=== PATIENT | male | born 1965 ===

== ENCOUNTER 2017-10-20 16:50 | Inpatient (IN) | payer MEDICARE ==
[2017-10-20 18:43] LABS: Add Diff/Slide Review? Slide Review Added; Comments Flag Yes; Hematocrit 49 % (42-52); Mean Corpuscular HGB Conc 35 g/dl (31-36); Mean Corpuscular Hemoglobin 32 pg (27-31); Mean Corpuscular Volume 92 fL (80-94); Mean Platelet Volume 8 um3 (7.4-10.4); Red Blood Count 5.34 10^6/ul (4.0-5.4); Red Cell Distribution Width 15 % (10.5-15); White Blood Count 4.5 10^3/ul (3.5-10.8)
[2017-10-20 18:58] LABS: Albumin 4.7 g/dL (3.2-5.2); BUN/Creatinine Ratio 6.2 (8-20); Calcium 9.9 mg/dL (8.6-10.3); EGFR African American 87.3 (>60); EGFR Non-African American 67.9 (>60); Globulin 3.7 g/dL (2-4); Potassium 4.5 mmol/L (3.5-5.0); Total Bilirubin 0.6 mg/dL (0.2-1.0); Total Protein 8.4 g/dL (6.4-8.9)
[2017-10-20] MEDS ORDERED: Lidocaine 2% VISCOUS* 15 ML UDC PO ONE (21:28)
[2017-10-20] MEDS ORDERED: Al Hydrox/Mg Hydrox/Simet LIQ* 30 ML UDC PO ONE (21:29)
[2017-10-20] MEDS ORDERED: NS 0.9% 1000 ML* 1,000 ML IV ONE (21:30)
[2017-10-20 21:45] LABS: Urine Bacteria Absent (Absent); Urine Bilirubin Negative (Negative); Urine Glucose Negative (Negative); Urine Nitrite Negative (Negative)
[2017-10-20] MEDS ORDERED: LORazepam TAB(*) 0.5 MG PO PRN (22:45)
[2017-10-20] MEDS ORDERED: Thiamine IV 100 MG, Folic Acid IV* 1 MG, Multiple Vitamin IV ADULT* 10 ML in D5NS 0.9% ... IV ONE (22:45)
[2017-10-20] MEDS ORDERED: Loperamide CAP* 2 MG PO PRN (22:45)
[2017-10-20] MEDS ORDERED: Mouth Piece, Nicotine* 1 EACH CARTRIDGE INH PRN (23:09)
[2017-10-20] MEDS ORDERED: Artificial Tears* 15 ML BTL BOTH EYES PRN (23:11)
[2017-10-21] MEDS: NS 0.9% 1000 ML* 1,000 ML IV SCH ×3 (00:14→22:52)
[2017-10-21] MEDS: Nicotine Inhaler* 10 MG AMP INH PRN (00:32)
[2017-10-21] MEDS: Ondansetron INJ* 2 MG/ML VIAL IV PRN ×3 (00:33→21:03)
--- NOTE | 2017-10-21 01:49 | HP ---
HISTORY AND PHYSICAL: DATE OF ADMISSION: 10/20/17 PRIMARY CARE PROVIDER: None since Dr. Mack Stevens retired last year. CHIEF COMPLAINT: Abdominal pain, diarrhea. HISTORY OF PRESENT ILLNESS: Mr. Molnia is a 52-year-old male with a longstanding history of alcoholism, who states that he has been drinking approximately 12 pack of beer per day for quite sometime. He states that he has had abdominal pain for quite a while. He is unable to tell me how long he has had the abdominal pain. He also complains of having diarrhea after every time he tries to take any fluid or liquid in. He tells me this has been going on for a month, but he cannot be any more specific than that. The patient states that he feels as if he is in a fog and his memory is poor. The patient also complains that his eyes burn. He also states that he feels dehydrated. The patient in general is a poor historian and is unable to give any specific details. Overall, he just states that he feels incredibly poor. PAST MEDICAL HISTORY: 1. Alcoholism. 2. History of alcoholic hepatitis. 3. 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 4. Vitamin D deficiency. 5. Tourette's. 6. OCD. 7. Tobacco abuse. 8. Color blindness. PAST SURGICAL HISTORY: Cholecystectomy. ALLERGIES: IBUPROFEN and PYRIDOXINE. MEDICATIONS: None. FAMILY HISTORY: Mom of a brain aneurysm in her 60's, dad's health is unknown. SOCIAL HISTORY: The patient states that he is trying to quit smoking. He has been smoking less than 1 pack per day. He has probably smoked for 20 years. He drinks approximately 12 pack of beer per day. He admits to using cocaine intermittently. He states he last used cocaine a few weeks ago. He smokes it and he injects it. 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 He is . He has 2 children. He is unable to choose a healthcare proxy stating that he has nobody close to him that he would have make those decisions. He is not in contact with his children. REVIEW OF SYSTEMS: The patient denies any fevers or chills. He denies anorexia , but states that he is afraid to eat due to the diarrhea that always ensues. He admits to chest pain. He states that lately he has been getting chest pain with exertion. He states that it goes away with rest. Additionally, he complains of left arm discomfort with walking. He has chronic lower extremity edema. He admits to chronic cough and shortness of breath that he thinks is related to his smoking. He admits to nausea, diarrhea, and abdominal pain as above. He thinks that he may have had blood in his stool but with his color blindness he is not sure, he just notes that his stool is very dark. He denies any dysuria. He denies any focal weakness or sensory loss. He admits to the lower extremity neuropathy. He states that his vision is not very good. He describes a film over everything. He admits to dysphagia. He denies any joint pains or muscle pains out of ordinary. No rashes. He admits to depression. PHYSICAL EXAMINATION GENERAL: The patient is a well-developed, middle-aged male, sitting in stretcher, at times tearful during my exam, but in no acute distress. VITAL SIGNS: Blood pressure 141/85, pulse 90, respirations 18, temp 98.4, O2 sat 97% on room air. HEENT: Pupils are equal, they are round. Extraocular muscles are intact. The patient's sclerae are injected. His oral mucosa is dry. There is no submandibular, cervical, or supraclavicular adenopathy. Thyroid is not enlarged. No thyroid nodules noted. PULMONARY: Lungs are clear to auscultation bilaterally. CARDIAC: Normal S1, S2. Regular rate and rhythm. I do not appreciate any murmurs. There is no lower extremity edema. Pulses at the dorsalis pedis are 2 +. ABDOMEN: Bowel sounds present. Abdomen is soft, nontender, nondistended. MUSCULOSKELETAL: There is no cyanosis or clubbing of the digits. There is full active range of motion of all 4 extremities. NEURO: Cranial nerves II through XII are grossly intact. Sensation is intact to light touch throughout. Strength is 5/5 and symmetric in both upper and lower extremities bilaterally. SKIN: Warm and dry. There are no rashes. The patient has track lizarraga noted on his bilateral lower extremities. There is no evidence of phlebitis. PSYCH: The patient is tearful. He cries when speaking about his children and lack of relationship with them. DIAGNOSTIC STUDIES/LAB DATA: WBC 4.5, hemoglobin 17.0, hematocrit 49, platelets 96. Sodium 141, potassium 4.5, chloride 99, CO2 27, BUN 7, creatinine 1.13, glucose 92, calcium 9.9, bilirubin 0.6, AST 69, ALT 53, alk phos 89, albumin 4.7, lipase 121. Alcohol 276. Urinalysis reveals specific gravity of 1.009, trace wbc, absent bacteria, negative ketones. ASSESSMENT AND PLAN: Mr. Molina is a 52-year-old male with a longstanding history of alcoholism and related complications, Tourette's, obsessive- compulsive disorder, and tobacco abuse as well as cocaine abuse who presents to the emergency room with complaints of abdominal pain and in general feeling poorly. 1. Abdominal pain: While the patient's lipase is mildly elevated at 121, I suspect his abdominal pain is likely related to alcoholic gastritis. The patient may have a slight alcoholic hepatitis; however, this seems to be unlikely the cause of his abdominal pain at this point. The patient will be started on omeprazole 20 mg p.o. daily. He is going to be abstaining from alcohol while hospitalized and this hopefully will help. The patient states that he thought that his stool was very dark recently. I will order a stool occult blood; however, his hemoglobin is within normal range. It seems unlikely that he is having at least a significant GI bleed, but he could perhaps be having oozing turning his stool dark. The patient was given a GI cocktail in the emergency room. 2. Diarrhea: The patient claims that after every time he eats or drinks, he has significant diarrhea. I have ordered Imodium to be given after each loose stool. I suspect the diarrhea is related to his alcohol intake. 3. General malaise: The patient in general feels very poorly. The differential on this is extensive. Symptoms could be secondary to ongoing alcohol abuse versus potential infection secondary to injecting cocaine a few weeks ago versus vitamin deficiency. The patient is already known to be vitamin D deficient. I question if he may have vitamin B12 deficiency. We will check a vitamin B12 level. The patient will receive a banana bag. 4. Alcohol abuse. The patient will be started on the WAM protocol q. 4 hours. 5. Depression: The patient is clearly depressed. At this point, he states that he does not want to speak to a psychiatrist because he does not want to go back on medications. He may, however, very well need to speak to a psychiatrist depending on how his hospitalization goes. 6. DVT prophylaxis: According to the Adult Thrombosis Prophylaxis Risk Factor Assessment Guide, the patient has a total risk factor score of 2 making him moderate risk. He will be placed on heparin 5000 units subcutaneous q. 12 hours. 7. Code status is full. TIME SPENT: Sixty five minutes was spent admitting this patient. [id number]/[facility] #: [id number] GABI
[2017-10-21] MEDS: LORazepam TAB(*) 0.5 MG PO PRN ×3 (02:40→09:05)
[2017-10-21] MEDS: Omeprazole CAP* 20 MG PO SCH (05:23)
[2017-10-21 05:53] LABS: Hematocrit 40 % (42-52); Hemoglobin 13.7 g/dl (14.0-18.0); Mean Corpuscular HGB Conc 34 g/dl (31-36); Mean Corpuscular Hemoglobin 31 pg (27-31); Mean Corpuscular Volume 91 fL (80-94); Mean Platelet Volume 8 um3 (7.4-10.4); Red Cell Distribution Width 15 % (10.5-15); White Blood Count 2.9 10^3/ul (3.5-10.8)
[2017-10-21 06:14] LABS: BUN/Creatinine Ratio 7.6 (8-20); Calcium 8.3 mg/dL (8.6-10.3); EGFR African American 110.7 (>60); EGFR Non-African American 86.1 (>60)
[2017-10-21 07:09] LABS: Comments Flag Yes
[2017-10-21] MEDS: Nicotine PATCH 21 MG/24 HR* PATCH TRANSDERM SCH (09:05)
[2017-10-21] MEDS ORDERED: chlordiazePOXIDE CAP* 25 MG PO PRN (12:29)
[2017-10-21] MEDS: chlordiazePOXIDE CAP* 25 MG PO SCH ×2 (14:22→21:02)
[2017-10-21] MEDS ORDERED: Nicotine Patch Removal NOTE FOLLOW UP SCH (21:00)
[2017-10-22] MEDS: Ondansetron INJ* 2 MG/ML VIAL IV PRN ×2 (03:21→09:21)
[2017-10-22] MEDS: Omeprazole CAP* 20 MG PO SCH (05:26)
[2017-10-22 06:58] LABS: Hematocrit 42 % (42-52); Hemoglobin 13.9 g/dl (14.0-18.0); Mean Corpuscular HGB Conc 34 g/dl (31-36); Mean Corpuscular Hemoglobin 31 pg (27-31); Mean Corpuscular Volume 92 fL (80-94); Mean Platelet Volume 9 um3 (7.4-10.4); Red Cell Distribution Width 15 % (10.5-15); White Blood Count 2.7 10^3/ul (3.5-10.8)
[2017-10-22 07:08] LABS: Comments Flag Yes
[2017-10-22 07:09] LABS: Add Diff/Slide Review? Slide Review Added
[2017-10-22 07:14] LABS: Albumin 3.5 g/dL (3.2-5.2); BUN/Creatinine Ratio 7.3 (8-20); Calcium 8.8 mg/dL (8.6-10.3); EGFR African American 90.1 (>60); Globulin 2.9 g/dL (2-4); Potassium 4.1 mmol/L (3.5-5.0); Total Bilirubin 0.6 mg/dL (0.2-1.0); Total Protein 6.4 g/dL (6.4-8.9)
[2017-10-22] MEDS: NS 0.9% 1000 ML* 1,000 ML IV SCH (07:16)
[2017-10-22] MEDS: Nicotine PATCH 21 MG/24 HR* PATCH TRANSDERM SCH (07:20)
[2017-10-22] MEDS: Nicotine Inhaler* 10 MG AMP INH PRN (07:20)
[2017-10-22] MEDS: chlordiazePOXIDE CAP* 25 MG PO SCH ×2 (07:21→13:16)
[2017-10-22 11:34] VITALS: BP 132/76
[2017-10-22] MEDS ORDERED: Ondansetron ODT TAB* 4 MG PO PRN (12:53)
--- NOTE | 2017-10-22 13:08 | PN ---
Subjective Date of Service: 10/21/17 Interval History: Patient no longer having diarrhea or abdominal pain. Appetite fair. No new c/ o. Objective Active Medications: Chlordiazepoxide (Librium Cap*) 25 mg PO TID [facility] Last Admin: 10/22/17 07:21 Dose: 25 mg Chlordiazepoxide (Librium Cap*) 25 mg PO Q3H PRN PRN Reason: ANXIETY Last Admin: 10/22/17 00:16 Dose: 25 mg Device (Nicotine Mouth Piece*) 1 each INH .USE WITH NICOTROL PRN PRN Reason: CRAVING Last Admin: 10/21/17 00:32 Dose: 1 each Loperamide HCl (Imodium Cap*) 2 mg PO .SEE DIRECTIONS PRN PRN Reason: DIARRHEA Nicotine (Nicotine Inhaler*) 10 mg INH Q2H PRN PRN Reason: CRAVING Last Admin: 10/22/17 07:20 Dose: 10 mg Nicotine (Nicotine Patch 21 Mg/24 Hr*) 1 patch TRANSDERM DAILY@0900 [facility] Last Admin: 10/22/17 07:20 Dose: 1 patch Ondansetron HCl (Zofran Odt Tab*) 4 mg PO Q6H PRN PRN Reason: NAUSEA Pharmacy Profile Note (Nicotine Patch Removal Note*) 1 note FOLLOW UP 2100 [facility] Last Admin: 10/21/17 21:06 Dose: 1 note Polyvinyl Alcohol (Polyvinyl Alcohol 1.4% Opth*) 2 drop BOTH EYES Q2H PRN PRN Reason: DRY EYE Vital Signs - 8 hr 10/22/17 10/22/17 10/22/17 07:05 07:21 07:38 Temperature 99.4 F Pulse Rate 81 Respiratory 18 15 20 Rate Blood Pressure 144/78 (mmHg) O2 Sat by Pulse 97 Oximetry 10/22/17 10/22/17 10:00 11:23 Temperature 97.9 F Pulse Rate 80 Respiratory 18 16 Rate Blood Pressure 132/76 (mmHg) O2 Sat by Pulse 100 Oximetry Oxygen Devices in Use Now: None Appearance: Alert, partly up in bed. In good spirits. Looks comfortable. Eyes: No Scleral Icterus Neck: NL Appearance and Movements; NL JVP, No Thyroid Enlargement, Masses Respiratory: Symmetrical Chest Expansion and Respiratory Effort, Clear to Auscultation, Clear to Percussion Cardiovascular: NL Sounds; No Murmurs; No JVD, RRR, No Edema, - Extremities: No Edema, No Clubbing, Cyanosis, - Skin: No Rash or Ulcers, No Nodules or Sclerosis Neurological: Alert and Oriented x 3, NL Sensation, - - minimal sustention tremor. Result Diagrams: 10/22/17 06:46 10/22/17 06:45 Microbiology and Other Data: Microbiology 10/20/17 23:22 Aerobic Blood Culture - Preliminary Blood Venous No Growth Day 1 Anaerobic Blood Culture - Preliminary No Growth Day 1 10/20/17 23:22 Aerobic Blood Culture - Preliminary Blood Venous No Growth Day 1 Anaerobic Blood Culture - Preliminary No Growth Day 1 Assess/Plan/Problems-Billing Assessment: - Patient Problems (1) Alcohol abuse Current Visit: Yes Status: Acute Code(s): F10.10 - ALCOHOL ABUSE, UNCOMPLICATED SNOMED Code(s): 68427134 Comment: Acute and chronic alcoholism with alcoholic hepatitis and pancreatitis. Start chlordiazepoxide scheduled and PRN. SW consult. (2) Tobacco abuse Current Visit: Yes Status: Acute Code(s): Z72.0 - TOBACCO USE SNOMED Code( s): 765396643 Comment: Pt advised to quit smoking and avoid second hand smoke.
--- NOTE | 2017-10-22 13:12 | PN ---
"Progress Note - Progress Note Date of Service: 10/22/17 Note: Search Terms: vini bernstein, 1965 Search Date: 10/22/2017 01:09:49 PM The Drug Utilization Report below displays all of the controlled substance prescriptions, if any, that your patient has filled in the last twelve months. The information displayed on this report is compiled from pharmacy submissions to the Department, and accurately reflects the information as submitted by the pharmacies. This report was requested by: Jason Baez | Reference #: [id number] There are no results for the search terms that you entered."
--- NOTE | 2017-10-22 13:15 | PN ---
Progress Note - Progress Note Date of Service: 10/22/17 Note: Time spent on discharge 55 minutes.
--- NOTE | 2017-10-22 22:48 | ED ---
Ammy Infante Alfonso, scribed for Princess Bellamy MD on 10/20/17 at 2125 . Complex/Multi-Sys Presentation - HPI Summary HPI Summary: This patient is a 52 year old M with a hx of alcoholic cirrhosis presenting to [facility] with a chief complaint of abdominal pain, generalized illness since a few months ago, worse today. He states I didnt think I was going to live, it just hurts, my whole body hurts, it just does, it just doesnt feel right. The patient rates the pain 5/10 in severity. Symptoms aggravated and alleviated by nothing. Patient reports abdominal pain, nausea, diarrhea, loss of appetite, I got a taste in my mouth I cant get rid of, my kidneys hurt," and ETOH use two big beers today, a little more than usual. Patient denies fever, and vomiting. - History Of Current Complaint Chief Complaint: EDNauseaVomitDiarrh Time Seen by Provider: 10/20/17 21:14 Hx Obtained From: Patient, Medical Records Onset/Duration: Gradual Onset - for a few months, Still Present Timing: Constant Severity Currently: Moderate Severity Initially: Moderate Location: Pain At: - diffuse abdominal Character: Dull Aggravating Factor(s): nothing Alleviating Factor(s): nothing Associated Signs And Symptoms: Positive: Weakness, Nausea, Vomiting, Diarrhea, Other - abdominal pain, nausea, diarrhea, loss of appetite, I got a taste in my mouth I cant get rid of, my kidneys hurt," and ETOH use two big beers today, a little more than usual. Patient denies fever, and vomiting. - Allergies/Home Medications Allergies/Adverse Reactions: Allergies Allergy/AdvReac Type Severity Reaction Status Date / Time Pyridoxine [From [facility]] Allergy Anaphylatic Verified 06/19/14 13:42 Shock PMH/Surg Hx/FS Hx/Imm Hx Previously Healthy: No - cirrhosis, alcoholism GI History: Reports: Hx Cirrhosis Opthamlomology History: Denies: Hx Legally Blind EENT History: Denies: Hx Deafness Psychiatric History: Reports: Hx Substance Abuse - cocaine - Surgical History Surgery Procedure, Year, and Place: cholecystectomy Infectious Disease History: No Infectious Disease History: Denies: Traveled Outside the [place] in Last 30 Days - Family History Known Family History: Positive: Other - Cancer in aunt and 3 cousins. CVA grandmother - Social History Occupation: Disabled Alcohol Use: Daily Hx Substance Use: Yes Substance Use Type: Reports: Cocaine, Prescribed Hx Tobacco Use: Yes Smoking Status (MU): Heavy Every Day Tobacco Smoker Review of Systems Positive: Fatigue, Other - malaise. Negative: Fever Positive: Other - I got a taste in my mouth I cant get rid of, Cardiovascular: Negative Respiratory: Negative Positive: Abdominal Pain, Diarrhea, Nausea, Other - loss of appetite, my kidneys hurt". Negative: Vomiting Positive: other - my kidneys hurt Neurological: Other - ETOH use two big beers today, a little more than usual. Positive: Depressed - tearful in the ED All Other Systems Reviewed And Are Negative: Yes Physical Exam Triage Information Reviewed: Yes Vital Signs On Initial Exam: Initial Vitals Temp Pulse Resp BP Pulse Ox 98.1 F 102 18 141/84 95 10/20/17 17:27 10/20/17 17:27 10/20/17 17:27 10/20/17 17:27 10/20/17 17:27 Vital Signs Reviewed: Yes Appearance: Positive: Well-Nourished, Ill-Appearing, Pain Distress Skin: Positive: Warm, Skin Color Reflects Adequate Perfusion Head/Face: Positive: Normal Head/Face Inspection Eyes: Positive: EOMI, Conjunctiva Clear ENT: Positive: Normal ENT inspection Neck: Positive: Supple, Nontender, No Lymphadenopathy Respiratory/Lung Sounds: Positive: Clear to Auscultation, Breath Sounds Present , Other - No respiratory distress Cardiovascular: Positive: RRR, Pulses are Symmetrical in both Upper and Lower Extremities, Other - Brisk capillary refill. Negative: Murmur Abdomen Description: Positive: Soft, Other: - Diffuse tenderness. Negative: Nontender, No Organomegaly, Bruit, CVA Tenderness (R), CVA Tenderness (L), Distended, Guarding, Hernia @, Hepatomegaly, McBurney's Point Tenderness, Peritoneal Signs, Pulsatile Mass, Splenomegaly Bowel Sounds: Positive: Present Musculoskeletal: Positive: Strength/ROM Intact Neurological: Positive: Alert, Oriented to Person Place, Time, Facial Symmetry, Speech Normal, Other - Tremulous, muscle tone normal, facial symmetry, speech normal, sensory/motor intact Psychiatric: Positive: Depressed Diagnostics - Vital Signs Vital Signs Temp Pulse Resp BP Pulse Ox 10/20/17 19:12 98.4 F 90 18 141/85 97 10/20/17 17:27 98.1 F 102 18 141/84 95 - Laboratory Lab Results: Lab Results 10/20/17 10/20/17 Range/Units 18:24 18:24 WBC 4.5 (3.5-10.8) 10^3/ul RBC 5.34 (4.0-5.4) 10^6/ul Hgb 17.0 (14.0-18.0) g/dl Hct 49 (42-52) % MCV 92 (80-94) fL MCH 32 H (27-31) pg MCHC 35 (31-36) g/dl RDW 15 (10.5-15) % Plt Count 96 L (150-450) 10^3/ul MPV 8 (7.4-10.4) um3 Neut % (Auto) 52.2 (38-83) % Lymph % (Auto) 39.1 (25-47) % [place] % (Auto) 6.1 (1-9) % Eos % (Auto) 1.6 (0-6) % Baso % (Auto) 1.0 (0-2) % Absolute Neuts (auto) 2.4 (1.5-7.7) 10^3/ul Absolute Lymphs (auto) 1.8 (1.0-4.8) 10^3/ul Absolute Monos (auto) 0.3 (0-0.8) 10^3/ul Absolute Eos (auto) 0.1 (0-0.6) 10^3/ul Absolute Basos (auto) 0 (0-0.2) 10^3/ul Absolute Nucleated RBC 0.01 10^3/ul Nucleated RBC % 0.1 Hem Pathologist Commnt Pending Sodium 141 (133-145) mmol/L Potassium 4.5 (3.5-5.0) mmol/L Chloride 99 L (101-111) mmol/L Carbon Dioxide 27 (22-32) mmol/L Anion Gap 15 H (2-11) mmol/L BUN 7 (6-24) mg/dL Creatinine 1.13 (0.67-1.17) mg/dL Est GFR ( Amer) 87.3 (>60) Est GFR (Non-Af Amer) 67.9 (>60) BUN/Creatinine Ratio 6.2 L (8-20) Glucose 92 (70-100) mg/dL Calcium 9.9 (8.6-10.3) mg/dL Total Bilirubin 0.60 (0.2-1.0) mg/dL AST 69 H (13-39) U/L ALT 53 H (7-52) U/L Alkaline Phosphatase 89 (34-104) U/L C-React Prot High Sens 1.48 mg/L Total Protein 8.4 (6.4-8.9) g/dL Albumin 4.7 (3.2-5.2) g/dL Globulin 3.7 (2-4) g/dL Albumin/Globulin Ratio 1.3 (1-3) Lipase 121 H (11.0-82.0) U/L Result Diagrams: 10/22/17 06:46 10/22/17 06:45 Lab Statement: Any lab studies that have been ordered have been reviewed, and results considered in the medical decision making process. Complex Multi-Symp Course/Dx Assessment/Plan: Patients medications reviewed this visit. In the ED course the patient was given GI cocktail and IV fluids. Consulted Dr. Pérez ( hospitalist) at 2127 who agrees to admit. The patient is agreeable with this plan. - Diagnoses Differential Diagnoses/HQI/PQRI: Cardiac Ischemia, Metabolic Abnormality, Sepsis , Other - pancreatitis, hepatitis, Provider Diagnoses: Gastritis, Pancreatitis, Abdominal pain, Chronic alcoholism - Physician Notifications Discussed Care Of Patient With: Supriya Pérez Time Discussed With Above Provider: 21:28 Instructed by Provider To: Other - Consulted Dr. Pérez (hospitalist) at 2128 who agrees to admit. Discharge - Discharge Plan Condition: Improved Disposition: ADMITTED TO [facility] documentation as recorded by the Ammy marte Alfonso accurately reflects the service I personally performed and the decisions made by , Princess Bellamy MD.
--- NOTE | 2017-10-23 04:35 | DS ---
DISCHARGE SUMMARY: DATE OF ADMISSION: 10/20/17 DATE OF DISCHARGE: 10/22/17 HOSPITAL COURSE: This 52-year-old man presented with a chief complaint of abdominal pain and diarrhea. He said he had been drinking 12 beers a day for maybe a year, had been in the rehab a long time ago. He had a number of other complaints associated with this, for details see the admission note. His alcohol level was 276. He was given intravenous fluids. He was given benzodiazepine, I switched him to schedule oral chlordiazepoxide with p.r.n. dose of the same as needed. He did well in the hospital. His diarrhea and abdominal pain went away. I note his blood sugars were mildly elevated. Lipase was 120 and came down to normal. Transaminases were slightly elevated as well. Total bilirubin was normal. White count was 2.7, platelets 44,000, hematocrit 42%. I note his platelet count was 66,000 in 2013. The above findings are very consistent with alcoholic liver disease and alcoholic pancreatitis. I advised the patient of the same. The social work administrator saw him and tried to help him follow up with outpatient counseling. He had a number of contacts in the mental health community already. He was not interested in inpatient rehab. FINAL DIAGNOSES: 1. Acute and chronic alcoholism with alcoholic hepatitis and alcoholic pancreatitis. 2. Tobacco use disorder. DISCHARGE MEDICATIONS: 1. Chlordiazepoxide 25 mg b.i.d., dispensed 6. 2. Ondansetron ODT tablets 4 mg every 6 hours p.r.n. 3. Thiamine 100 mg daily. [id number]/[facility] #: [id number] MTDD
== END 2017-10-22 13:22 | disposition home or self-care (01) | DRG 432 ==
LOC: ED 16:50 → MEDTELE 22:45
PROVIDERS: ADMIT Hospitalist; ATTEND Internal Medicine
DX: K70.10 Alcoholic hepatitis without ascites (principal); K85.20 Alcohol induced acute pancreatitis without necrosis or infection; G62.1 Alcoholic polyneuropathy; F95.2 Tourette's disorder; K86.0 Alcohol-induced chronic pancreatitis; F10.229 Alcohol dependence with intoxication, unspecified; Y90.8 Blood alcohol level of 240 mg/100 ml or more; F17.210 Nicotine dependence, cigarettes, uncomplicated; E55.9 Vitamin D deficiency, unspecified; F42.9 Obsessive-compulsive disorder, unspecified; H53.50 Unspecified color vision deficiencies; Z88.6 Allergy status to analgesic agent; Z88.8 Allergy status to other drugs, medicaments and biological substances; R53.81 Other malaise
CPT/HCPCS: 36415; 80048; 80053; 80320; 81003; 81015; 82607; 83690; 84484; 85025; 85027; 85060; 86141; 87040; 99406; A9270-GY; G0480; J2405; J3411

== ENCOUNTER 2018-04-27 20:14 | Inpatient (IN) | payer MEDICARE ==
[2018-04-27] MEDS ORDERED: NS 0.9% 1000 ML* 1,000 ML IV ONE (21:03)
[2018-04-27] MEDS ORDERED: Al Hydrox/Mg Hydrox/Simet LIQ* 30 ML UDC PO ONE (21:55)
[2018-04-27] MEDS ORDERED: Pantoprazole IV* 40 MG IV ONE (21:55)
[2018-04-27] MEDS ORDERED: Lidocaine 2% VISCOUS* 15 ML UDC PO ONE (21:55)
[2018-04-27 22:20] LABS: Urine Appearance Clear; Urine Blood Negative (Negative); Urine Color Amber; Urine Ketones Negative (Negative); Urine Protein Negative (Negative); Urine Specific Gravity 1.006 (1.010-1.030); Urine Urobilinogen Positive (Negative)
[2018-04-27 22:56] LABS: EGFR Non-African American 114.2 (>60)
[2018-04-27 22:57] LABS: Hematocrit 32 % (42-52); Hemoglobin 11.3 g/dl (14.0-18.0); Mean Corpuscular HGB Conc 35 g/dl (31-36); Mean Corpuscular Hemoglobin 35 pg (27-31); Mean Corpuscular Volume 99 fL (80-94); Platelet Count 79 10^3/ul (150-450); Red Blood Count 3.27 10^6/ul (4.00-5.40); Red Cell Distribution Width 16 % (10.5-15); White Blood Count 4.7 10^3/ul (3.5-10.8)
[2018-04-27 22:59] LABS: INR 1.13 (0.77-1.02)
[2018-04-28 00:10] LABS: Monocytes % 3 % (0-7)
[2018-04-28] MEDS ORDERED: diPHENhydraMINE IV* 50 MG/ML 1 ml VIAL (BENADRYL) IV ONE (00:17)
[2018-04-28] MEDS ORDERED: Metoclopramide IV* 5 MG/ML 2 ML VIAL IV ONE (00:17)
[2018-04-28] MEDS ORDERED: Morphine VIAL* 4 MG/ML VIAL (1 ml vial) IV ONE (01:46)
[2018-04-28] MEDS ORDERED: Senna TAB PO PRN (02:31)
[2018-04-28] MEDS ORDERED: Al Hydrox/Mg Hydrox/Simet LIQ* 30 ML UDC PO PRN (02:31)
[2018-04-28] MEDS ORDERED: Docusate CAP* 100 MG PO PRN (02:31)
[2018-04-28] MEDS ORDERED: Thiamine IV* 100 MG/ML 2 ML VIAL IM ONE (02:36)
[2018-04-28] MEDS ORDERED: NS 0.9% 1000 ML* 1,000 ML IV SCH (02:45)
[2018-04-28] MEDS ORDERED: Mouth Piece, Nicotine* 1 EACH CARTRIDGE INH PRN (02:48)
[2018-04-28] MEDS ORDERED: Nicotine Inhaler* 10 MG AMP INH PRN (02:48)
[2018-04-28] MEDS ORDERED: Mouth Piece, Nicotine* 1 EACH CARTRIDGE INH ONE (02:48)
--- NOTE | 2018-04-28 03:35 | ED ---
Baljit Infante Tariq, scribed for Dimitri Springer MD on 04/27/18 at 2135 . Abdominal Pain/Male - HPI Summary HPI Summary: A 52 y/o male presents to ED c/o severe diffuse abdominal pain. Pt states that he has blood in urine, stool and vomit. Sx started this past winter, which initially improved, however became worse. Pt states he is an alcoholic (6-8 beers/day) and uses alcohol for pain. Additionally, he c/o back pain. He states he cannot eat, but drinking is fine. Traveling is a problem for him, as he has a hard time moving around due to pain. He feels like, " is upon him". Does not have PCP. No current medications. - History of Current Complaint Chief Complaint: EDAbdPain Stated Complaint: HEMORRHAGE Time Seen by Provider: 04/27/18 21:21 Hx Obtained From: Patient Onset/Duration: Gradual Onset, Lasting Weeks, Still Present, Worse Since Timing: Constant, Lasting Weeks Severity Initially: Moderate Severity Currently: Moderate Pain Intensity: 5 Pain Scale Used: 0-10 Numeric Location: Diffuse Radiates to: Back, Flank Aggravating Factor(s): Nothing Alleviating Factor(s): Nothing Associated Signs And Symptoms: Positive: Back Pain, Blood in Stool, Urinary Symptoms, Diarrhea - melena - Allergies/Home Medications Allergies/Adverse Reactions: Allergies Allergy/AdvReac Type Severity Reaction Status Date / Time pyridoxine Allergy Unknown Verified 04/27/18 20:31 Reaction Details Home Medications: Home Medications NK [No Home Medications Reported] 04/27/18 [History Confirmed 04/27/18] PMH/Surg Hx/FS Hx/Imm Hx GI History: Reports: Hx Cirrhosis Sensory History: Denies: Hx Contacts or Glasses, Hx Legally Blind, Hx Deafness, Hx Hearing Aid Opthamlomology History: Denies: Hx Contacts or Glasses, Hx Legally Blind Psychiatric History: Reports: Hx Substance Abuse - cocaine - Surgical History Surgery Procedure, Year, and Place: cholecystectomy Infectious Disease History: No Infectious Disease History: Denies: Traveled Outside the [place] in Last 30 Days - Family History Known Family History: Positive: Other - Cancer in aunt and 3 cousins. CVA grandmother - Social History Alcohol Use: Daily Alcohol Amount: up to a 12 pack/daily Hx Substance Use: Yes Substance Use Type: Reports: Cocaine, Prescribed Hx Tobacco Use: Yes Smoking Status (MU): Heavy Every Day Tobacco Smoker Review of Systems Negative: Fever Positive: Abdominal Pain - Diffuse, Vomiting - bloody, Diarrhea, Other - melena Positive: dysuria All Other Systems Reviewed And Are Negative: Yes Physical Exam - Summary Physical Exam Summary: Appearance: Well appearing, guards diffusely the abdomen Skin: warm, dry, reflects adequate perfusion, no pallor, some chronic dermatitis on legs Head/face: normal Eyes: mild scleritis ENT: normal Neck: supple, non-tender, no vocal tenderness Respiratory: CTA, breath sounds present Cardiovascular: RRR, pulses symmetrical Abdomen: non-tender, soft Bowel Sounds: present Musculoskeletal: normal, strength/ROM intact, no LE edema Neuro: normal, sensory motor intact, A&Ox3 Triage Information Reviewed: Yes Vital Signs On Initial Exam: Initial Vitals Temp Pulse Resp BP Pulse Ox 98.2 F 90 18 121/80 94 04/27/18 20:32 04/27/18 20:32 04/27/18 20:32 04/27/18 20:32 04/27/18 20:32 Vital Signs Reviewed: Yes Diagnostics - Vital Signs Vital Signs Temp Pulse Resp BP Pulse Ox 04/27/18 20:32 98.2 F 90 18 121/80 94 - Laboratory Lab Results: Lab Results 04/27/18 04/27/18 04/27/18 Range/Units 22:11 22:32 22:32 WBC 4.7 (3.5-10.8) 10^3/ul RBC 3.27 L (4.00-5.40) 10^6/ul Hgb 11.3 L (14.0-18.0) g/dl Hct 32 L (42-52) % MCV 99 H (80-94) fL MCH 35 H (27-31) pg MCHC 35 (31-36) g/dl RDW 16 H (10.5-15) % Plt Count 79 L (150-450) 10^3/ul MPV 10.0 (7.4-10.4) um3 Neut % (Auto) Not Reportable Lymph % (Auto) Not Reportable [place] % (Auto) Not Reportable Eos % (Auto) Not Reportable Baso % (Auto) Not Reportable Absolute Neuts (auto) Not Reportable Absolute Lymphs (auto) Not Reportable Absolute Monos (auto) Not Reportable Absolute Eos (auto) Not Reportable Absolute Basos (auto) Not Reportable Absolute Nucleated RBC Not Reportable Immature Gran % 1 (0-9) % Neutrophils % 67 (38-83) % Band Neutrophils % 1 (0-8) % Lymphocytes % 29 (25-47) % Monocytes % 3 (0-7) % Eosinophils % 0 (0-6) % Basophils % 0 (0-2) % Nucleated RBC % Not Reportable Abs Neuts (Manual) 3.1 (1.5-7.7) 10^3/ul Abs Lymphs (Manual) 1.4 (1.0-4.8) 10^3/ul Abs Monocytes (Manual) 0.1 (0-0.8) 10^3/ul Absolute Eos (Manual) 0 (0-0.6) 10^3/ul Abs Basophils (Manual) 0 (0-0.2) 10^3/ul Normal RBC Morphology Not Reportable Hypochromasia 1+ Target Cells 1+ Hem Pathologist Commnt Pending INR (Anticoag Therapy) 1.13 H (0.77-1.02) APTT 35.2 (26.0-36.3) seconds Sodium (135-145) mmol/L Potassium (3.5-5.0) mmol/L Chloride (101-111) mmol/L Carbon Dioxide (22-32) mmol/L Anion Gap (2-11) mmol/L BUN (6-24) mg/dL Creatinine (0.67-1.17) mg/dL Est GFR ( Amer) (>60) Est GFR (Non-Af Amer) (>60) BUN/Creatinine Ratio (8-20) Glucose (70-100) mg/dL Lactic Acid (0.5-2.0) mmol/L Calcium (8.6-10.3) mg/dL Magnesium (1.9-2.7) mg/dL Total Bilirubin (0.2-1.0) mg/dL GGT (9-64.0) U/L AST (13-39) U/L ALT (7-52) U/L Alkaline Phosphatase (34-104) U/L C-Reactive Protein (< 5.00) mg/L Total Protein (6.4-8.9) g/dL Albumin (3.2-5.2) g/dL Globulin (2-4) g/dL Albumin/Globulin Ratio (1-3) Lipase (11.0-82.0) U/L Urine Color Ashwini Urine Appearance Clear Urine pH 6.0 (5-9) Ur Specific Fay 1.006 L (1.010-1.030) Urine Protein Negative (Negative) Urine Ketones Negative (Negative) Urine Blood Negative (Negative) Urine Nitrate Negative (Negative) Urine Bilirubin Negative (Negative) Urine Urobilinogen Positive A (Negative) Ur Leukocyte Esterase Negative (Negative) Urine Glucose Negative (Negative) 04/27/18 04/27/18 Range/Units 22:32 22:32 WBC (3.5-10.8) 10^3/ul RBC (4.00-5.40) 10^6/ul Hgb (14.0-18.0) g/dl Hct (42-52) % MCV (80-94) fL MCH (27-31) pg MCHC (31-36) g/dl RDW (10.5-15) % Plt Count (150-450) 10^3/ul MPV (7.4-10.4) um3 Neut % (Auto) Lymph % (Auto) [place] % (Auto) Eos % (Auto) Baso % (Auto) Absolute Neuts (auto) Absolute Lymphs (auto) Absolute Monos (auto) Absolute Eos (auto) Absolute Basos (auto) Absolute Nucleated RBC Immature Gran % (0-9) % Neutrophils % (38-83) % Band Neutrophils % (0-8) % Lymphocytes % (25-47) % Monocytes % (0-7) % Eosinophils % (0-6) % Basophils % (0-2) % Nucleated RBC % Abs Neuts (Manual) (1.5-7.7) 10^3/ul Abs Lymphs (Manual) (1.0-4.8) 10^3/ul Abs Monocytes (Manual) (0-0.8) 10^3/ul Absolute Eos (Manual) (0-0.6) 10^3/ul Abs Basophils (Manual) (0-0.2) 10^3/ul Normal RBC Morphology Hypochromasia Target Cells Hem Pathologist Commnt INR (Anticoag Therapy) (0.77-1.02) APTT (26.0-36.3) seconds Sodium 133 L (135-145) mmol/L Potassium 3.5 (3.5-5.0) mmol/L Chloride 95 L (101-111) mmol/L Carbon Dioxide 27 (22-32) mmol/L Anion Gap 11 (2-11) mmol/L BUN 4 L (6-24) mg/dL Creatinine 0.72 (0.67-1.17) mg/dL Est GFR ( Amer) 146.9 (>60) Est GFR (Non-Af Amer) 114.2 (>60) BUN/Creatinine Ratio 5.6 L (8-20) Glucose 91 (70-100) mg/dL Lactic Acid 3.1 H* (0.5-2.0) mmol/L Calcium 8.3 L (8.6-10.3) mg/dL Magnesium 2.0 (1.9-2.7) mg/dL Total Bilirubin 6.70 H (0.2-1.0) mg/dL GGT 1734 H (9-64.0) U/L AST 405 H (13-39) U/L ALT 111 H (7-52) U/L Alkaline Phosphatase 275 H (34-104) U/L C-Reactive Protein 15.34 H (< 5.00) mg/L Total Protein 6.1 L (6.4-8.9) g/dL Albumin 2.9 L (3.2-5.2) g/dL Globulin 3.2 (2-4) g/dL Albumin/Globulin Ratio 0.9 L (1-3) Lipase 106 H (11.0-82.0) U/L Urine Color Urine Appearance Urine pH (5-9) Ur Specific Fay (1.010-1.030) Urine Protein (Negative) Urine Ketones (Negative) Urine Blood (Negative) Urine Nitrate (Negative) Urine Bilirubin (Negative) Urine Urobilinogen (Negative) Ur Leukocyte Esterase (Negative) Urine Glucose (Negative) Result Diagrams: 1818 22:32 04/27/18 22:32 Lab Statement: Any lab studies that have been ordered have been reviewed, and results considered in the medical decision making process. - CT CT AP CT Interpretation Completed By: Radiologist - Enlarged fatty liver. Mild splenomegaly. Chronic pancreatitis with questionable mild superimposed acute inflammation, which can be correlated with amylase and lipase levels. Alernatively, there may be mild duodenitis. ED PHYSICIAN REVIEWED THIS RADIOLOGY REPORT. - EKG 2127 Cardiac Rate: NL - 83 BPM EKG Rhythm: Sinus Rhythm ST Segment: Normal Abdominal Pain Fem Course/Dx - Course Course Of Treatment: Patient with a myriad of complaints many of which seem chronic. He reports chronic hematuria, hematochezia, hematemesis. He is a heavy drinker. He also reports mental health issues with depression. Today his biggest concern is generalized abdominal pain. He has grossly elevated LFTs but his lipase is normal. CT scan was performed which shows evidence of chronic pancreatitis. He is a former opiate drug user and no peripheral IV access was able to be obtained. I placed an external jugular IV. Patient had requested to avoid opiates however later in his course he is now asking for them. I was going to arrange for him to have outpatient follow-up however he states he is not safe at home and that he needs to detox from his alcohol so that he can get help with his mental health. He also states he needs ongoing therapy for his abdominal pain. Hospitalist was contacted and will evaluate and admit. - Diagnoses Provider Diagnoses: Alcoholism, Chronic pancreatitis, Abdominal pain, Major depression, recurrent Discharge - Sign-Out/Discharge Documenting (check all that apply): Discharge/Admit/Transfer - Admit - Discharge Plan Condition: Fair Disposition: ADMITTED TO [facility] - Billing Disposition and Condition Condition: FAIR Disposition: Admitted to [facility] The documentation as recorded by the Baljit marte Tariq accurately reflects the service I personally performed and the decisions made by me, Dimitri Springer MD.
[2018-04-28] MEDS: NS 0.9% 1000 ML* 1,000 ML IV SCH ×4 (03:38→23:56)
[2018-04-28] MEDS: Acetaminophen TAB* 325 MG PO PRN ×3 (03:52→15:30)
[2018-04-28] MEDS ORDERED: Thiamine TAB* 100 MG TAB PO ONE (04:00)
[2018-04-28] MEDS: Morphine VIAL* 4 MG/ML VIAL (1 ml vial) IV PRN ×5 (04:36→23:30)
[2018-04-28 06:52] LABS: Hematocrit 34 % (42-52); Hemoglobin 11.9 g/dl (14.0-18.0); Mean Corpuscular HGB Conc 35 g/dl (31-36); Mean Corpuscular Hemoglobin 35 pg (27-31); Mean Corpuscular Volume 100 fL (80-94); Mean Platelet Volume 9.5 um3 (7.4-10.4); Platelet Count 59 10^3/ul (150-450); Red Blood Count 3.36 10^6/ul (4.00-5.40); Red Cell Distribution Width 16 % (10.5-15); White Blood Count 3.2 10^3/ul (3.5-10.8)
--- NOTE | 2018-04-28 08:04 | RAD ---
CLINICAL HISTORY: abd pain, liver failure, blood in stool/emesis COMPARISON: June 19, 2014 TECHNIQUE: Multiple contiguous axial CT scans were obtained of the abdomen and pelvis, without intravenous contrast enhancement. Coronal and sagittal multiplanar reformations are submitted for review. Oral contrast was not administered. FINDINGS: The study is limited by the lack of intravenous contrast. This limits evaluation of the solid organs and vasculature. LUNG BASES: The lung bases are clear. LIVER: The liver is diffusely low in attenuation compared to the spleen. There are no focal hepatic parenchymal masses. The liver measures 27 cm in long axis. BILE DUCTS: There is no intrahepatic or extrahepatic biliary dilatation. GALLBLADDER: The gallbladder is not visualized. Surgical clips are noted in the gallbladder fossa. PANCREAS: There are calcifications of the pancreatic head and uncinate process. There is no pancreatic ductal dilatation. There is mild stranding of the peripancreatic fat along the pancreatic head and uncinate process. SPLEEN: The spleen measures 15 cm in long axis. UPPER GI TRACT: Evaluation of the gastrointestinal tract is limited by incomplete gastric distention. The upper GI tract is unremarkable. SMALL BOWEL AND MESENTERY: The small bowel is normal in contour, course, and caliber. There is no obstruction or dilatation. COLON: The colon is normal in contour, course, caliber. There is no pericolonic inflammatory change. ADRENALS: Normal bilaterally. KIDNEYS: There is focal hyperattenuation of the upper pole of the right kidney suggestive of a proteinaceous cyst measuring 0.6 cm. There is no hydronephrosis or nephrolithiasis. BLADDER: The bladder is smooth in contour. PELVIC ORGANS: The prostate gland is normal. The seminal vesicles are symmetric. AORTA: The aorta is normal. IVC: Unremarkable LYMPH NODES: There is no lymphadenopathy by size criteria. ABDOMINAL WALL: There is no evidence for abdominal wall hernia. BONES AND SOFT TISSUES: There are mild diffuse degenerative changes. OTHER: None IMPRESSION: 1. FATTY INFILTRATION OF THE LIVER WITH MARKEDLY HEPATOMEGALY. 2. SPLENOMEGALY. 3. PANCREATIC HEAD AND UNCINATE PROCESS CALCIFICATION SUGGESTIVE OF CHRONIC PERITENDINITIS. 4. THERE IS NO STRANDING OF THE ADJACENT FAT AT THE LEVEL OF THE PANCREATIC HEAD AND UNCINATE PROCESS SUGGESTIVE OF EARLY ACUTE PANCREATITIS, VERSUS A PRIMARY INFLAMMATORY PROCESS OF THE DUODENUM
[2018-04-28] MEDS: Folic Acid TAB* 1 MG PO SCH (08:05)
[2018-04-28] MEDS: Multivitamins/Minerals TAB PO SCH (08:06)
[2018-04-28] MEDS: Thiamine TAB* 100 MG TAB PO SCH (08:07)
[2018-04-28] MEDS: Pantoprazole IV* 40 MG IV SCH (08:07)
--- NOTE | 2018-04-28 09:03 | HP ---
HISTORY AND PHYSICAL: The patient does not have a primary care physician. DATE OF ADMISSION: 04/28/18 TIME OF EVALUATION: 0200. CHIEF COMPLAINT: Abdominal pain and back pain. HISTORY OF PRESENT ILLNESS: This is a 52-year-old male with a past medical history of alcohol abuse, who presents to the emergency room with worsening back pain and abdominal pain. The patient states last winter, he developed these similar symptoms of abdominal pain and back pain. He has quit drinking over the winter and the spring and he cannot remember which came first, but he started drinking again, and the pain returned and he kept increasing the amount of alcohol to help numb the pain. He has been trying to cut back on smoking. He states he has been having nausea, vomiting, vomiting blood for the past few weeks and he is having diarrhea for the past few weeks with black stools as well. [place] he has to walk quite a ways to catch his bus. Today he was unable to walk and catch the bus as he could not take the pain anymore. He states he has not eaten in weeks. He feels thinner, but he does not know how much weight he has actually lost. No chest pain or shortness of breath. He states the last drink was yesterday morning. He states he drinks about 7 or 8 beers per day. Otherwise, remainder of review of systems is negative. In the emergency room, the patient had labs and imaging. He was given a liter of fluid, Protonix 80 mg, 4 mg of morphine, 10 mg of Reglan, viscous lidocaine, GI cocktail, Benadryl 25 mg IV, Maalox plus , and was referred to the hospitalist service for further evaluation for no improvement in his pain. PAST MEDICAL HISTORY: 1. History of pancreatitis. 2. History of alcoholic hepatitis. 3. History of IV drug use. 4. Tobacco use. 5. The patient states he has OCD and Tourette's. 6. 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 MEDICATIONS: None. ALLERGIES: IBUPROFEN and PYRIDOXINE. SOCIAL HISTORY: As mentioned, the patient lives alone, independent with his ADLs. He drinks 7 to 8 beers per day, smokes unfiltered cigarettes, average a pack per day for the past 30 years, remote IV drug user. No recent drug use. His healthcare proxy, he states he has no one. FAMILY HISTORY: Mother from complications of brain aneurysm at age 60 , father unknown. REVIEW OF SYSTEMS: 14-point review of systems as mentioned in the HPI, otherwise negative. PHYSICAL EXAMINATION GENERAL: No acute distress, resting comfortably. VITALS: Temp is 98.4, pulse rate 87, respiratory rate 16, oxygen saturation 95 % on room air, blood pressure 129/72. HEENT: Head normocephalic. Pupils are equal and reactive. Conjunctivae are injected. Oropharynx: Mucous membranes are moist. NECK: Supple. No lymphadenopathy. RESPIRATORY: Diminished breath sounds. No wheezing, rhonchi or rales. CARDIAC: Regular rate and rhythm. Soft systolic murmur heard throughout. ABDOMEN: Positive bowel sounds, soft, some mild tenderness diffusely. No rebound or guarding. EXTREMITIES: No clubbing, cyanosis or edema. +1 DPs. NEUROLOGIC: Alert and oriented x3. No gross focal neurologic deficits. No tremor. DIAGNOSTIC STUDIES/LAB DATA: Laboratory data: White count 4.7, hemoglobin 11.3, hematocrit 32, platelets 79. INR was 1.13. Sodium 133, potassium 3.5, chloride 95, bicarb 27, BUN 4, creatinine 2.72, glucose 91, lactic acid 3.1, total bilirubin 6.7. AST 405, GGT 1734, ALT 111, alk phos 274, CRP of 15, albumin is 2.9, lipase is 106. Urinalysis unremarkable. Radiographic data: CT of the abdomen shows a large fatty liver, mild splenomegaly, chronic pancreatitis with questionable and mild superimposed acute inflammation, which can be correlated with amylase and lipase, there may be mild duodenitis. ASSESSMENT: This is a 52-year-old male with past medical history of alcohol abuse, who presented to the emergency room with worsening abdominal pain and black stools. 1. Abdominal pain and melena. Assessment: The patient's history and physical are consistent with findings of acute on chronic pancreatitis and possible duodenitis with concomitant gastrointestinal bleeding. This is most likely alcoholic pancreatitis; however , there could be a concern with elevated bilirubin that there is a gallstone pancreatitis. It appears that he has had a cholecystectomy. Plan, we will repeat his labs in the morning, continue him on IV fluids, pain control, check a hepatitis panel, obtain ultrasound of his biliary tree, and place him on clears. We will guaiac his stool and monitor his H and H, continue him on a PPI q. 24 hours and antiemetics. Consider GI evaluation depending on results in the morning. Chronic medical problems. History of alcoholic pancreatitis. The patient's LFTs are elevated consistent with acute alcoholic pancreatitis. Plan, we will place him on a WAM protocol, Ativan as needed, and IV fluids and social work consult for discussion of possible rehab. 3. Tobacco use. Stay on nicotine inhaler as needed. 4. FEN. We will place him on clear liquid diet, IV fluids. 5. DVT prophylaxis: The patient scores moderate risk, we will place him on SCDs. 6. Code status: Full code. 7. 8. History of thrombocytopenia. It appears unchanged likely secondary to his chronic alcohol use. 7. Disposition. Concern for patient's well being and a remote location, needing extra resources, consider inpatient rehab for his alcohol abuse or additional services if he is discharged to home. PATIENT TIME: Greater than 60 minutes was spent doing history and physical, more than half time was spent in direct patient contact. [id number]/[facility] #: [id number] GABI
--- NOTE | 2018-04-28 09:12 | RAD ---
INDICATION: Pancreatitis evaluate for gallstones. COMPARISON: Comparison is made with a prior CT of the abdomen and pelvis from April 28, 2018. TECHNIQUE: Multiple real-time images of the right upper quadrant were obtained. FINDINGS: The patient is status post cholecystectomy. No intra or extrahepatic ductal distention is present. The common bile duct measured 0.6 cm in diameter. The liver is moderately enlarged and increased in echogenicity which correlates with fatty infiltration on the prior CT study. No focal hepatic abnormality is seen. The pancreas is obscured by overlying bowel gas. The right kidney is normal in size without evidence for hydronephrosis. IMPRESSION: 1. STATUS POST CHOLECYSTECTOMY. 2. HEPATOMEGALY AND HEPATIC STEATOSIS.
[2018-04-28] MEDS: PROCHLORPERAZINE INJ 5 MG/ML 2 ML VIAL IV PRN ×2 (11:37→19:18)
[2018-04-28] MEDS: Ondansetron 40 MG VIAL* 2 MG/ML 20 ML VIAL IV PRN ×2 (13:18→23:36)
[2018-04-28] MEDS: LORazepam INJ* 2 MG/ML 1 ML VIAL IV PUSH SCH (15:30)
--- NOTE | 2018-04-28 19:52 | PN ---
Subjective Date of Service: 04/28/18 Interval History: Complains of abd pain, nausea. mid chest pain with deep breath. Denies diarrhea and vomiting. c/o tremors. Family History: Unchanged from Admission Social History: Unchanged from Admission Past Medical History: Unchanged from Admission Objective Active Medications: Acetaminophen (Tylenol Tab*) 650 mg PO Q4H PRN PRN Reason: FEVER/PAIN Last Admin: 04/28/18 15:30 Dose: 650 mg Al Hydrox/Mg Hydrox/Simethicone (Maalox Plus*) 30 ml PO Q6H PRN PRN Reason: INDIGESTION Docusate Sodium (Colace Cap*) 100 mg PO BID PRN PRN Reason: CONSTIPATION Folic Acid (Folvite Tab*) 1 mg PO DAILY [facility] Last Admin: 04/28/18 08:05 Dose: 1 mg Sodium Chloride (Ns 0.9% 1000 Ml*) 1,000 mls @ 150 mls/hr IV PER RATE [facility] Last Admin: 04/28/18 17:13 Dose: 150 mls/hr Lorazepam (Ativan Inj*) 0 - 3 mg IV PUSH .PER [facility] PROTOCOL [facility] PRN Reason: Protocol Last Admin: 04/28/18 15:30 Dose: 1.5 mg Morphine Sulfate (Morphine Vial*) 2 mg IV Q4H PRN PRN Reason: PAIN - MILD Last Admin: 04/28/18 19:19 Dose: 2 mg Multivitamins/Minerals (Theragran/Minerals Tab*) 1 tab PO DAILY [facility] Last Admin: 04/28/18 08:06 Dose: 1 tab Nicotine (Nicotine Inhaler*) 10 mg INH Q2H PRN PRN Reason: CRAVING Last Admin: 04/28/18 05:03 Dose: 10 mg Ondansetron HCl (Zofran 40 Mg Vial*) 4 mg IV Q4H PRN PRN Reason: NAUSEA/VOMITING Last Admin: 04/28/18 13:18 Dose: 4 mg Pantoprazole Sodium (Protonix Iv*) 40 mg IV Q24H [facility] Last Admin: 04/28/18 08:07 Dose: 40 mg Prochlorperazine Edisylate (Compazine Inj*) 5 mg IV Q6H PRN PRN Reason: NAUSEA/VOMITING Last Admin: 04/28/18 19:18 Dose: 5 mg Senna (Senokot Tab*) 1 tab PO BID PRN PRN Reason: CONSTIPATION Thiamine HCl (Vitamin B-1 Tab*) 100 mg PO DAILY [facility] Last Admin: 04/28/18 08:07 Dose: 100 mg Vital Signs - 8 hr 04/28/18 04/28/18 04/28/18 13:04 13:17 15:07 Temperature 100.4 F Pulse Rate 91 Respiratory 22 16 16 Rate Blood Pressure 117/96 (mmHg) O2 Sat by Pulse 96 Oximetry 04/28/18 04/28/18 04/28/18 15:20 15:30 16:57 Temperature 100.4 F 99.3 F Pulse Rate 86 83 Respiratory 22 16 20 Rate Blood Pressure 122/62 106/61 (mmHg) O2 Sat by Pulse 97 97 Oximetry 04/28/18 04/28/18 04/28/18 16:58 18:54 19:19 Temperature 98.5 F Pulse Rate 82 Respiratory 16 20 20 Rate Blood Pressure 124/72 (mmHg) O2 Sat by Pulse 95 Oximetry Oxygen Devices in Use Now: None Appearance: tremulous, appear uncomfotable resting in bed Eyes: No Scleral Icterus Ears/Nose/Mouth/Throat: Clear Oropharnyx, Mucous Membranes Moist Neck: NL Appearance and Movements; NL JVP, Trachea Midline Respiratory: Symmetrical Chest Expansion and Respiratory Effort, Clear to Auscultation Cardiovascular: NL Sounds; No Murmurs; No JVD, No Edema Abdominal: - - diffuse tenderness to abd, BS + x4 abd is soft but tender Extremities: No Edema, No Clubbing, Cyanosis, - - moderate hand tremors noted Skin: No Rash or Ulcers Neurological: Alert and Oriented x 3 Nutrition: Taking PO's Result Diagrams: 04/29/18 09:42 04/28/18 06:26 Additional Lab and Data: Lab Results 04/27/18 04/27/18 04/27/18 Range/Units 22:11 22:32 22:32 WBC 4.7 (3.5-10.8) 10^3/ul RBC 3.27 L (4.00-5.40) 10^6/ul Hgb 11.3 L (14.0-18.0) g/dl Hct 32 L (42-52) % MCV 99 H (80-94) fL MCH 35 H (27-31) pg MCHC 35 (31-36) g/dl RDW 16 H (10.5-15) % Plt Count 79 L (150-450) 10^3/ul MPV 10.0 (7.4-10.4) um3 Neut % (Auto) Not Reportable Lymph % (Auto) Not Reportable [place] % (Auto) Not Reportable Eos % (Auto) Not Reportable Baso % (Auto) Not Reportable Absolute Neuts (auto) Not Reportable Absolute Lymphs (auto) Not Reportable Absolute Monos (auto) Not Reportable Absolute Eos (auto) Not Reportable Absolute Basos (auto) Not Reportable Absolute Nucleated RBC Not Reportable Immature Gran % 1 (0-9) % Neutrophils % 67 (38-83) % Band Neutrophils % 1 (0-8) % Lymphocytes % 29 (25-47) % Monocytes % 3 (0-7) % Eosinophils % 0 (0-6) % Basophils % 0 (0-2) % Nucleated RBC % Not Reportable Abs Neuts (Manual) 3.1 (1.5-7.7) 10^3/ul Abs Lymphs (Manual) 1.4 (1.0-4.8) 10^3/ul Abs Monocytes (Manual) 0.1 (0-0.8) 10^3/ul Absolute Eos (Manual) 0 (0-0.6) 10^3/ul Abs Basophils (Manual) 0 (0-0.2) 10^3/ul Normal RBC Morphology Not Reportable Hypochromasia 1+ Target Cells 1+ Hem Pathologist Commnt Pending INR (Anticoag Therapy) 1.13 H (0.77-1.02) APTT 35.2 (26.0-36.3) seconds Sodium (135-145) mmol/L Potassium (3.5-5.0) mmol/L Chloride (101-111) mmol/L Carbon Dioxide (22-32) mmol/L Anion Gap (2-11) mmol/L BUN (6-24) mg/dL Creatinine (0.67-1.17) mg/dL Est GFR ( Amer) (>60) Est GFR (Non-Af Amer) (>60) BUN/Creatinine Ratio (8-20) Glucose (70-100) mg/dL Lactic Acid (0.5-2.0) mmol/L Calcium (8.6-10.3) mg/dL Magnesium (1.9-2.7) mg/dL Total Bilirubin (0.2-1.0) mg/dL GGT (9-64.0) U/L AST (13-39) U/L ALT (7-52) U/L Alkaline Phosphatase (34-104) U/L C-Reactive Protein (< 5.00) mg/L Total Protein (6.4-8.9) g/dL Albumin (3.2-5.2) g/dL Globulin (2-4) g/dL Albumin/Globulin Ratio (1-3) Lipase (11.0-82.0) U/L Urine Color Ashwini Urine Appearance Clear Urine pH 6.0 (5-9) Ur Specific [place] 1.006 L (1.010-1.030) Urine Protein Negative (Negative) Urine Ketones Negative (Negative) Urine Blood Negative (Negative) Urine Nitrate Negative (Negative) Urine Bilirubin Negative (Negative) Urine Urobilinogen Positive A (Negative) Ur Leukocyte Esterase Negative (Negative) Urine Glucose Negative (Negative) 04/27/18 04/27/18 Range/Units 22:32 22:32 WBC (3.5-10.8) 10^3/ul RBC (4.00-5.40) 10^6/ul Hgb (14.0-18.0) g/dl Hct (42-52) % MCV (80-94) fL MCH (27-31) pg MCHC (31-36) g/dl RDW (10.5-15) % Plt Count (150-450) 10^3/ul MPV (7.4-10.4) um3 Neut % (Auto) Lymph % (Auto) [place] % (Auto) Eos % (Auto) Baso % (Auto) Absolute Neuts (auto) Absolute Lymphs (auto) Absolute Monos (auto) Absolute Eos (auto) Absolute Basos (auto) Absolute Nucleated RBC Immature Gran % (0-9) % Neutrophils % (38-83) % Band Neutrophils % (0-8) % Lymphocytes % (25-47) % Monocytes % (0-7) % Eosinophils % (0-6) % Basophils % (0-2) % Nucleated RBC % Abs Neuts (Manual) (1.5-7.7) 10^3/ul Abs Lymphs (Manual) (1.0-4.8) 10^3/ul Abs Monocytes (Manual) (0-0.8) 10^3/ul Absolute Eos (Manual) (0-0.6) 10^3/ul Abs Basophils (Manual) (0-0.2) 10^3/ul Normal RBC Morphology Hypochromasia Target Cells Hem Pathologist Commnt INR (Anticoag Therapy) (0.77-1.02) APTT (26.0-36.3) seconds Sodium 133 L (135-145) mmol/L Potassium 3.5 (3.5-5.0) mmol/L Chloride 95 L (101-111) mmol/L Carbon Dioxide 27 (22-32) mmol/L Anion Gap 11 (2-11) mmol/L BUN 4 L (6-24) mg/dL Creatinine 0.72 (0.67-1.17) mg/dL Est GFR ( Amer) 146.9 (>60) Est GFR (Non-Af Amer) 114.2 (>60) BUN/Creatinine Ratio 5.6 L (8-20) Glucose 91 (70-100) mg/dL Lactic Acid 3.1 H* (0.5-2.0) mmol/L Calcium 8.3 L (8.6-10.3) mg/dL Magnesium 2.0 (1.9-2.7) mg/dL Total Bilirubin 6.70 H (0.2-1.0) mg/dL GGT 1734 H (9-64.0) U/L AST 405 H (13-39) U/L ALT 111 H (7-52) U/L Alkaline Phosphatase 275 H (34-104) U/L C-Reactive Protein 15.34 H (< 5.00) mg/L Total Protein 6.1 L (6.4-8.9) g/dL Albumin 2.9 L (3.2-5.2) g/dL Globulin 3.2 (2-4) g/dL Albumin/Globulin Ratio 0.9 L (1-3) Lipase 106 H (11.0-82.0) U/L Urine Color Urine Appearance Urine pH (5-9) Ur Specific [place] (1.010-1.030) Urine Protein (Negative) Urine Ketones (Negative) Urine Blood (Negative) Urine Nitrate (Negative) Urine Bilirubin (Negative) Urine Urobilinogen (Negative) Ur Leukocyte Esterase (Negative) Urine Glucose (Negative) Assess/Plan/Problems-Billing Assessment: Mr. Tyson is a 52 y.o male with a hx of ETOH and drug abuse, ETOH hepatitis, ETOH neuropathy , Pancreatitis, HX of IV drug use., who presented to the emergency room with abdominal pain and - Patient Problems (1) Abdominal pain Current Visit: Yes Status: Acute Code(s): R10.9 - UNSPECIFIED ABDOMINAL PAIN SNOMED Code(s): 49468196 Comment: - suspect this is related to ETOH pancreatitis, gastritis - diffuse tenderness to the abd, soft - lipase mildly elevated 106 - AST/ALT elevated - will continue IV hydration , pain control - will repeat labs in the AM (2) Thrombocytopenia Current Visit: Yes Status: Acute Code(s): D69.6 - THROMBOCYTOPENIA, UNSPECIFIED SNOMED Code(s): 115209166 Comment: -suspect this is related to ETOH abuse - patient has a chronic history of thromocytopenia - side consulted to oncology- hold DVT prop for PLT less than 50,000, patient can be evaluated as outpatient (3) Alcohol abuse Current Visit: No Status: Acute Code(s): F10.10 - ALCOHOL ABUSE, UNCOMPLICATED SNOMED Code(s): 38014256 Comment: - Acute and chronic alcoholism with alcoholic hepatitis and pancreatitis. - patient does not wish have rehab treatment at this time -will continue with [facility] protocol - will add ativan BID routine to help with withdrawal. Status and Disposition: inpatient
[2018-04-28] MEDS: LORazepam TAB(*) 0.5 MG PO SCH (21:10)
[2018-04-29] MEDS: PROCHLORPERAZINE INJ 5 MG/ML 2 ML VIAL IV PRN ×3 (01:22→22:57)
[2018-04-29] MEDS: Acetaminophen TAB* 325 MG PO PRN (03:32)
[2018-04-29] MEDS: Morphine VIAL* 4 MG/ML VIAL (1 ml vial) IV PRN ×5 (03:32→21:45)
[2018-04-29] MEDS: LORazepam INJ* 2 MG/ML 1 ML VIAL IV PUSH SCH (03:38)
[2018-04-29] MEDS: NS 0.9% 1000 ML* 1,000 ML IV SCH (05:37)
[2018-04-29] MEDS: Thiamine TAB* 100 MG TAB PO SCH (08:35)
[2018-04-29] MEDS: Multivitamins/Minerals TAB PO SCH (08:35)
[2018-04-29] MEDS: Folic Acid TAB* 1 MG PO SCH (08:35)
[2018-04-29] MEDS: LORazepam TAB(*) 0.5 MG PO SCH ×2 (08:36→21:00)
[2018-04-29] MEDS: Pantoprazole IV* 40 MG IV SCH (08:36)
[2018-04-29 10:16] LABS: Hematocrit 33 % (42-52); Hemoglobin 11.5 g/dl (14.0-18.0); Mean Corpuscular HGB Conc 35 g/dl (31-36); Mean Corpuscular Hemoglobin 35 pg (27-31); Mean Corpuscular Volume 101 fL (80-94); Mean Platelet Volume 10.3 um3 (7.4-10.4); Platelet Count 44 10^3/ul (150-450); Red Cell Distribution Width 17 % (10.5-15); White Blood Count 2.8 10^3/ul (3.5-10.8)
[2018-04-29 10:28] LABS: EGFR Non-African American 107.3 (>60)
--- NOTE | 2018-04-29 10:29 | PN ---
Subjective Date of Service: 04/29/18 Interval History: Continue to c/o of abd pain and mild nausea,request to eat solid food. states that pain is being controlled with pain medication. States that shaking is improved today. Denies chest pain or shortness of breath. denies vomiting. Denies hallucinations. patient continue to report that he is not interested in inpatient ETOH and drug rehab, states he would like to go to [facility] rehab as he was able to complete this program in the past successfully. Family History: Unchanged from Admission Social History: Unchanged from Admission Past Medical History: Unchanged from Admission Objective Active Medications: Acetaminophen (Tylenol Tab*) 650 mg PO Q4H PRN PRN Reason: FEVER/PAIN Last Admin: 04/29/18 03:32 Dose: 650 mg Al Hydrox/Mg Hydrox/Simethicone (Maalox Plus*) 30 ml PO Q6H PRN PRN Reason: INDIGESTION Docusate Sodium (Colace Cap*) 100 mg PO BID PRN PRN Reason: CONSTIPATION Folic Acid (Folvite Tab*) 1 mg PO DAILY [facility] Last Admin: 04/29/18 08:35 Dose: 1 mg Lorazepam (Ativan Inj*) 0 - 3 mg IV PUSH .PER [facility] PROTOCOL [facility] PRN Reason: Protocol Last Admin: 04/29/18 03:38 Dose: 1.5 mg Lorazepam (Ativan Tab(*)) 0.5 mg PO Q12H [facility] Last Admin: 04/29/18 08:36 Dose: 0.5 mg Morphine Sulfate (Morphine Vial*) 2 mg IV Q4H PRN PRN Reason: PAIN - MILD Last Admin: 04/29/18 08:36 Dose: 2 mg Multivitamins/Minerals (Theragran/Minerals Tab*) 1 tab PO DAILY [facility] Last Admin: 04/29/18 08:35 Dose: 1 tab Nicotine (Nicotine Inhaler*) 10 mg INH Q2H PRN PRN Reason: CRAVING Last Admin: 04/28/18 05:03 Dose: 10 mg Ondansetron HCl (Zofran 40 Mg Vial*) 4 mg IV Q4H PRN PRN Reason: NAUSEA/VOMITING Last Admin: 04/28/18 23:36 Dose: 4 mg Pantoprazole Sodium (Protonix Iv*) 40 mg IV Q24H [facility] Last Admin: 04/29/18 08:36 Dose: 40 mg Prochlorperazine Edisylate (Compazine Inj*) 5 mg IV Q6H PRN PRN Reason: NAUSEA/VOMITING Last Admin: 04/29/18 01:22 Dose: 5 mg Senna (Senokot Tab*) 1 tab PO BID PRN PRN Reason: CONSTIPATION Thiamine HCl (Vitamin B-1 Tab*) 100 mg PO DAILY [facility] Last Admin: 04/29/18 08:35 Dose: 100 mg Vital Signs - 8 hr 04/29/18 04/29/18 04/29/18 03:25 03:32 03:38 Temperature 101.6 F Pulse Rate 90 Respiratory 16 18 18 Rate Blood Pressure 130/68 (mmHg) O2 Sat by Pulse 94 Oximetry 04/29/18 04/29/18 04/29/18 04:45 05:37 07:33 Temperature 99.3 F 98.8 F Pulse Rate 79 78 Respiratory 12 20 18 Rate Blood Pressure 118/61 109/47 (mmHg) O2 Sat by Pulse 97 95 Oximetry 04/29/18 08:36 Temperature Pulse Rate Respiratory 16 Rate Blood Pressure (mmHg) O2 Sat by Pulse Oximetry Oxygen Devices in Use Now: None Appearance: mild hand tremors today, alert and oreinted, appears comfortable resting in bed Eyes: No Scleral Icterus Ears/Nose/Mouth/Throat: Clear Oropharnyx, Mucous Membranes Moist Neck: NL Appearance and Movements; NL JVP, Trachea Midline Respiratory: Symmetrical Chest Expansion and Respiratory Effort, Clear to Auscultation Cardiovascular: NL Sounds; No Murmurs; No JVD, No Edema Abdominal: - - right sided abd tenderness with palpation, less guarding, BS + x4 Extremities: No Edema, No Clubbing, Cyanosis Skin: No Rash or Ulcers, No Nodules or Sclerosis Neurological: Alert and Oriented x 3 Nutrition: Taking PO's Result Diagrams: 04/29/18 09:42 04/29/18 12:28 Additional Lab and Data: Lab Results 04/27/18 04/27/18 04/27/18 Range/Units 22:11 22:32 22:32 WBC 4.7 (3.5-10.8) 10^3/ul RBC 3.27 L (4.00-5.40) 10^6/ul Hgb 11.3 L (14.0-18.0) g/dl Hct 32 L (42-52) % MCV 99 H (80-94) fL MCH 35 H (27-31) pg MCHC 35 (31-36) g/dl RDW 16 H (10.5-15) % Plt Count 79 L (150-450) 10^3/ul MPV 10.0 (7.4-10.4) um3 Neut % (Auto) Not Reportable Lymph % (Auto) Not Reportable Coal % (Auto) Not Reportable Eos % (Auto) Not Reportable Baso % (Auto) Not Reportable Absolute Neuts (auto) Not Reportable Absolute Lymphs (auto) Not Reportable Absolute Monos (auto) Not Reportable Absolute Eos (auto) Not Reportable Absolute Basos (auto) Not Reportable Absolute Nucleated RBC Not Reportable Immature Gran % 1 (0-9) % Neutrophils % 67 (38-83) % Band Neutrophils % 1 (0-8) % Lymphocytes % 29 (25-47) % Monocytes % 3 (0-7) % Eosinophils % 0 (0-6) % Basophils % 0 (0-2) % Nucleated RBC % Not Reportable Abs Neuts (Manual) 3.1 (1.5-7.7) 10^3/ul Abs Lymphs (Manual) 1.4 (1.0-4.8) 10^3/ul Abs Monocytes (Manual) 0.1 (0-0.8) 10^3/ul Absolute Eos (Manual) 0 (0-0.6) 10^3/ul Abs Basophils (Manual) 0 (0-0.2) 10^3/ul Normal RBC Morphology Not Reportable Hypochromasia 1+ Target Cells 1+ Hem Pathologist Commnt Pending INR (Anticoag Therapy) 1.13 H (0.77-1.02) APTT 35.2 (26.0-36.3) seconds Sodium (135-145) mmol/L Potassium (3.5-5.0) mmol/L Chloride (101-111) mmol/L Carbon Dioxide (22-32) mmol/L Anion Gap (2-11) mmol/L BUN (6-24) mg/dL Creatinine (0.67-1.17) mg/dL Est GFR ( Amer) (>60) Est GFR (Non-Af Amer) (>60) BUN/Creatinine Ratio (8-20) Glucose (70-100) mg/dL Lactic Acid (0.5-2.0) mmol/L Calcium (8.6-10.3) mg/dL Magnesium (1.9-2.7) mg/dL Total Bilirubin (0.2-1.0) mg/dL GGT (9-64.0) U/L AST (13-39) U/L ALT (7-52) U/L Alkaline Phosphatase (34-104) U/L C-Reactive Protein (< 5.00) mg/L Total Protein (6.4-8.9) g/dL Albumin (3.2-5.2) g/dL Globulin (2-4) g/dL Albumin/Globulin Ratio (1-3) Lipase (11.0-82.0) U/L Urine Color Ashwini Urine Appearance Clear Urine pH 6.0 (5-9) Ur Specific [place] 1.006 L (1.010-1.030) Urine Protein Negative (Negative) Urine Ketones Negative (Negative) Urine Blood Negative (Negative) Urine Nitrate Negative (Negative) Urine Bilirubin Negative (Negative) Urine Urobilinogen Positive A (Negative) Ur Leukocyte Esterase Negative (Negative) Urine Glucose Negative (Negative) 04/27/18 04/27/18 Range/Units 22:32 22:32 WBC (3.5-10.8) 10^3/ul RBC (4.00-5.40) 10^6/ul Hgb (14.0-18.0) g/dl Hct (42-52) % MCV (80-94) fL MCH (27-31) pg MCHC (31-36) g/dl RDW (10.5-15) % Plt Count (150-450) 10^3/ul MPV (7.4-10.4) um3 Neut % (Auto) Lymph % (Auto) Coal % (Auto) Eos % (Auto) Baso % (Auto) Absolute Neuts (auto) Absolute Lymphs (auto) Absolute Monos (auto) Absolute Eos (auto) Absolute Basos (auto) Absolute Nucleated RBC Immature Gran % (0-9) % Neutrophils % (38-83) % Band Neutrophils % (0-8) % Lymphocytes % (25-47) % Monocytes % (0-7) % Eosinophils % (0-6) % Basophils % (0-2) % Nucleated RBC % Abs Neuts (Manual) (1.5-7.7) 10^3/ul Abs Lymphs (Manual) (1.0-4.8) 10^3/ul Abs Monocytes (Manual) (0-0.8) 10^3/ul Absolute Eos (Manual) (0-0.6) 10^3/ul Abs Basophils (Manual) (0-0.2) 10^3/ul Normal RBC Morphology Hypochromasia Target Cells Hem Pathologist Commnt INR (Anticoag Therapy) (0.77-1.02) APTT (26.0-36.3) seconds Sodium 133 L (135-145) mmol/L Potassium 3.5 (3.5-5.0) mmol/L Chloride 95 L (101-111) mmol/L Carbon Dioxide 27 (22-32) mmol/L Anion Gap 11 (2-11) mmol/L BUN 4 L (6-24) mg/dL Creatinine 0.72 (0.67-1.17) mg/dL Est GFR ( Amer) 146.9 (>60) Est GFR (Non-Af Amer) 114.2 (>60) BUN/Creatinine Ratio 5.6 L (8-20) Glucose 91 (70-100) mg/dL Lactic Acid 3.1 H* (0.5-2.0) mmol/L Calcium 8.3 L (8.6-10.3) mg/dL Magnesium 2.0 (1.9-2.7) mg/dL Total Bilirubin 6.70 H (0.2-1.0) mg/dL GGT 1734 H (9-64.0) U/L AST 405 H (13-39) U/L ALT 111 H (7-52) U/L Alkaline Phosphatase 275 H (34-104) U/L C-Reactive Protein 15.34 H (< 5.00) mg/L Total Protein 6.1 L (6.4-8.9) g/dL Albumin 2.9 L (3.2-5.2) g/dL Globulin 3.2 (2-4) g/dL Albumin/Globulin Ratio 0.9 L (1-3) Lipase 106 H (11.0-82.0) U/L Urine Color Urine Appearance Urine pH (5-9) Ur Specific [place] (1.010-1.030) Urine Protein (Negative) Urine Ketones (Negative) Urine Blood (Negative) Urine Nitrate (Negative) Urine Bilirubin (Negative) Urine Urobilinogen (Negative) Ur Leukocyte Esterase (Negative) Urine Glucose (Negative) Microbiology and Other Data: Microbiology 04/29/18 02:35 Stool Occult Blood (QUENTIN) - Final Stool Assess/Plan/Problems-Billing Assessment: Mr. Tyson is a 52 y.o male with a hx of ETOH and drug abuse, ETOH hepatitis, ETOH neuropathy , Pancreatitis, HX of IV drug use., who presented to the emergency room with abdominal pain and - Patient Problems (1) Abdominal pain Current Visit: Yes Status: Acute Code(s): R10.9 - UNSPECIFIED ABDOMINAL PAIN SNOMED Code(s): 01275590 Comment: - suspect this is related to ETOH pancreatitis, hepetitis, gastritis - diffuse tenderness to the abd, soft - improving - lipase mildly elevated - AST/ALT elevated continue to trend down - will continue IV hydration- stopped patient tolerating PO - continue pain control - will repeat labs in the AM (2) Thrombocytopenia Current Visit: Yes Status: Acute Code(s): D69.6 - THROMBOCYTOPENIA, UNSPECIFIED SNOMED Code(s): 144972895 Comment: -suspect this is related to ETOH abuse - patient has a chronic history of thromocytopenia - side consulted to oncology- hold DVT prop for PLT less than 50,000, patient can be evaluated as outpatient for further work up (3) Alcohol abuse Current Visit: No Status: Acute Code(s): F10.10 - ALCOHOL ABUSE, UNCOMPLICATED SNOMED Code(s): 33419256 Comment: - Acute and chronic alcoholism with alcoholic hepatitis and pancreatitis. - patient does not wish have inpatient rehab treatment at this time, states that he would like to go to [facility] alcohol rehab. -will continue with [facility] protocol - will add ativan BID routine to help with withdrawal - tremors improved today (4) DVT prophylaxis Current Visit: Yes Status: Acute Code(s): SYR5859 - SNOMED Code(s): 347540694 Comment: holding heparin d/t thrombocytopenia Status and Disposition: inpatient- discharge home when stable
[2018-04-29 10:43] LABS: Monocytes % 2 % (0-7)
--- NOTE | 2018-04-29 19:29 | RAD ---
INDICATION: Fever COMPARISON: Chest x-ray dated December 16, 2009 TECHNIQUE: Single AP portable view of the chest was obtained. FINDINGS: Image quality is compromised due to the relative inferiority of a portable chest x-ray. The heart and mediastinum exhibit normal size and contour. The lungs are grossly clear. There is no evidence of a large pleural effusion. Visualized bones are normal for the patient's age. IMPRESSION: No radiographic evidence for acute cardiopulmonary abnormality on this portable chest x-ray.
[2018-04-29] MEDS: Ondansetron 40 MG VIAL* 2 MG/ML 20 ML VIAL IV PRN (21:14)
[2018-04-30] MEDS: Morphine VIAL* 4 MG/ML VIAL (1 ml vial) IV PRN ×6 (01:53→23:40)
[2018-04-30] MEDS: Ondansetron 40 MG VIAL* 2 MG/ML 20 ML VIAL IV PRN ×4 (01:54→23:40)
[2018-04-30] MEDS: PROCHLORPERAZINE INJ 5 MG/ML 2 ML VIAL IV PRN ×3 (05:30→21:41)
[2018-04-30 07:04] LABS: EGFR Non-African American 101.1 (>60)
[2018-04-30] MEDS: Multivitamins/Minerals TAB PO SCH (07:20)
[2018-04-30] MEDS: Folic Acid TAB* 1 MG PO SCH (07:20)
[2018-04-30] MEDS: Thiamine TAB* 100 MG TAB PO SCH (07:20)
[2018-04-30] MEDS: LORazepam TAB(*) 0.5 MG PO SCH ×2 (07:20→21:41)
[2018-04-30] MEDS: Pantoprazole IV* 40 MG IV SCH (07:20)
[2018-04-30 07:37] LABS: Hematocrit 34 % (42-52); Hemoglobin 11.6 g/dl (14.0-18.0); Mean Corpuscular HGB Conc 34 g/dl (31-36); Mean Corpuscular Hemoglobin 35 pg (27-31); Mean Corpuscular Volume 103 fL (80-94); Red Blood Count 3.31 10^6/ul (4.00-5.40); Red Cell Distribution Width 17 % (10.5-15); White Blood Count 4.3 10^3/ul (3.5-10.8)
[2018-04-30 09:20] LABS: Monocytes % 8 % (0-7)
--- NOTE | 2018-04-30 10:14 | PN ---
Subjective Date of Service: 04/30/18 Interval History: Patient seen and examined at bedside. Denies fever, chills, shortness of breath , chest discomfort, N/V/D. Pt states that he has a poor appetite but is trying to eat as able. He also reports continued ABD pain. Denies constipation. Pt states that he was having melena for a while prior to admission, he denies further BMs or sign of bleeding since the first BM at admission. Pt is unsure if he has ever had a colonoscopy, but reports a EGD in the past. Family History: Unchanged from Admission Social History: Unchanged from Admission Past Medical History: Unchanged from Admission Objective Active Medications: Acetaminophen (Tylenol Tab*) 650 mg PO Q4H PRN Reason: FEVER/PAIN Al Hydrox/Mg Hydrox/Simethicone (Maalox Plus*) 30 ml PO Q6H PRN Reason: INDIGESTION Docusate Sodium (Colace Cap*) 100 mg PO BID PRN Reason: CONSTIPATION Folic Acid (Folvite Tab*) 1 mg PO DAILY [facility] Lorazepam (Ativan Inj*) 0 - 3 mg IV PUSH .PER [facility] PROTOCOL [facility]; Protocol Lorazepam (Ativan Tab(*)) 0.5 mg PO Q12H [facility] Morphine Sulfate (Morphine Vial*) 2 mg IV Q4H PRN Reason: PAIN - MILD Multivitamins/Minerals (Theragran/Minerals Tab*) 1 tab PO DAILY [facility] Nicotine (Nicotine Inhaler*) 10 mg INH Q2H PRN Reason: CRAVING Ondansetron HCl (Zofran 40 Mg Vial*) 4 mg IV Q4H PRN Reason: NAUSEA/VOMITING Pantoprazole Sodium (Protonix Iv*) 40 mg IV Q24H [facility] Prochlorperazine Edisylate (Compazine Inj*) 5 mg IV Q6H PRN Reason: NAUSEA/ VOMITING Senna (Senokot Tab*) 1 tab PO BID PRN Reason: CONSTIPATION Thiamine HCl (Vitamin B-1 Tab*) 100 mg PO DAILY [facility] Vital Signs - 8 hr 04/30/18 04/30/18 04/30/18 03:00 03:15 03:54 Temperature 100.8 F Pulse Rate 90 Respiratory 10 16 16 Rate Blood Pressure 102/54 (mmHg) O2 Sat by Pulse 95 Oximetry 04/30/18 04/30/18 04/30/18 05:06 06:40 07:05 Temperature 99.3 F 98.4 F Pulse Rate 86 82 Respiratory 14 20 16 Rate Blood Pressure 115/64 112/70 (mmHg) O2 Sat by Pulse 95 98 Oximetry 04/30/18 04/30/18 04/30/18 07:20 07:27 07:33 Temperature Pulse Rate Respiratory 16 16 16 Rate Blood Pressure (mmHg) O2 Sat by Pulse Oximetry 04/30/18 04/30/18 09:00 09:13 Temperature 98.2 F Pulse Rate 88 Respiratory 16 16 Rate Blood Pressure 122/62 (mmHg) O2 Sat by Pulse 98 Oximetry Oxygen Devices in Use Now: None Appearance: NAD, laying in bed Ears/Nose/Mouth/Throat: Mucous Membranes Moist Respiratory: Symmetrical Chest Expansion and Respiratory Effort, Clear to Auscultation Cardiovascular: NL Sounds; No Murmurs; No JVD, RRR Abdominal: - - ABD soft, with diffuse tenderness Extremities: No Edema Neurological: Alert and Oriented x 3, NL Muscle Strength and Tone Nutrition: Taking PO's Result Diagrams: 04/30/18 06:26 04/30/18 06:26 Additional Lab and Data: . Microbiology and Other Data: Microbiology 04/29/18 02:35 Stool Occult Blood (QUENTIN) - Final Stool Assess/Plan/Problems-Billing Assessment: Mr. Tyson is a 52 y.o male with a hx of ETOH and drug abuse, ETOH hepatitis, ETOH neuropathy , Pancreatitis, HX of IV drug use., who presented to the emergency room with abdominal pain and melena. - Patient Problems (1) Abdominal pain Code(s): R10.9 - UNSPECIFIED ABDOMINAL PAIN SNOMED Code(s): 08493171 Comment: - Diffuse tenderness to the abd, improving - Suspect secondary to acute on chronic ETOH pancreatitis, hepatitis, and gastritis - Lipase mildly elevated and AST/ALT elevated but continue to trend down - Continue pain control (2) Thrombocytopenia Code(s): D69.6 - THROMBOCYTOPENIA, UNSPECIFIED SNOMED Code(s): 931209227 Comment: - Chronic - Suspect secondary to ETOH abuse - Side consulted oncology, recommend hold DVT prop for PLT less than 50,000, patient can be evaluated as outpatient for further work up (3) GI bleed Code(s): K92.2 - GASTROINTESTINAL HEMORRHAGE, UNSPECIFIED SNOMED Code(s): 12394124 Comment: - Positive stool for occult blood - Suspect secondary to gastric irritation - HH stable - Continue PPI (4) Alcohol abuse Code(s): F10.10 - ALCOHOL ABUSE, UNCOMPLICATED SNOMED Code(s): 67599280 Comment: - WAM score 0-4 - Acute and chronic alcoholism with alcoholic hepatitis and pancreatitis. - Patient does not wish have inpatient rehab treatment at this time, states that he would like to go to [facility] alcohol rehab at discharge - Continue [facility] protocol (5) Tobacco abuse Code(s): Z72.0 - TOBACCO USE SNOMED Code(s): 848938269 Comment: - Pt advised to quit smoking and avoid second hand smoke. - Continue nicotine replacement (6) DVT prophylaxis Code(s): [id number] - SNOMED Code(s): 869246617 Comment: - Holding SQ heparin d/t thrombocytopenia - SCD's (7) Full code status Code(s): Z78.9 - OTHER SPECIFIED HEALTH STATUS SNOMED Code(s): 418760472 Status and Disposition: Inpatient. Discharge to home when medically stable.
[2018-04-30] MEDS ORDERED: Magnesium Hydroxide LIQ* 30 ML UDC PO PRN (11:27)
[2018-05-01] MEDS: Morphine VIAL* 4 MG/ML VIAL (1 ml vial) IV PRN ×3 (03:48→12:12)
[2018-05-01] MEDS: PROCHLORPERAZINE INJ 5 MG/ML 2 ML VIAL IV PRN ×2 (03:48→10:19)
[2018-05-01] MEDS: Folic Acid TAB* 1 MG PO SCH (07:54)
[2018-05-01] MEDS: Thiamine TAB* 100 MG TAB PO SCH (07:54)
[2018-05-01] MEDS: Multivitamins/Minerals TAB PO SCH (07:54)
[2018-05-01] MEDS: LORazepam TAB(*) 0.5 MG PO SCH (07:54)
[2018-05-01] MEDS: Pantoprazole IV* 40 MG IV SCH (07:55)
[2018-05-01] MEDS: Ondansetron 40 MG VIAL* 2 MG/ML 20 ML VIAL IV PRN ×2 (07:56→12:12)
[2018-05-01 12:35] VITALS: BP 112/71
[2018-05-01] MEDS ORDERED: Morphine VIAL* 4 MG/ML VIAL (1 ml vial) IV PRN (13:17)
--- NOTE | 2018-05-01 13:29 | PN ---
Subjective Date of Service: 05/01/18 Interval History: Patient seen and examined at bedside. Denies fever, chills, shortness of breath , chest discomfort, V/D. Pt states that he still has not moved his bowels since his admission. Continues to report abdominal pain and is using IV morphine every 4 hours and antiemetics. Pt is requesting to leave today and feels that he will be able to manage at home without pain medication. Tele: Sinus rhythm, rate 70-90's Family History: Unchanged from Admission Social History: Unchanged from Admission Past Medical History: Unchanged from Admission Objective Active Medications: Acetaminophen (Tylenol Tab*) 650 mg PO Q4H PRN Reason: FEVER/PAIN Al Hydrox/Mg Hydrox/Simethicone (Maalox Plus*) 30 ml PO Q6H PRN Reason: INDIGESTION Docusate Sodium (Colace Cap*) 100 mg PO BID PRN Reason: CONSTIPATION Folic Acid (Folvite Tab*) 1 mg PO DAILY [facility] Lorazepam (Ativan Inj*) 0 - 3 mg IV PUSH .PER [facility] PROTOCOL NORMA; Protocol Lorazepam (Ativan Tab(*)) 0.5 mg PO Q12H [facility] Magnesium Hydroxide (Milk Of Magnesia Liq*) 30 ml PO Q6H PRN Reason: CONSTIPATION Morphine Sulfate (Morphine Vial*) 2 mg IV Q6H PRN Reason: PAIN - MILD Multivitamins/Minerals (Theragran/Minerals Tab*) 1 tab PO DAILY [facility] Nicotine (Nicotine Inhaler*) 10 mg INH Q2H PRN Reason: CRAVING Ondansetron HCl (Zofran 40 Mg Vial*) 4 mg IV Q4H PRN Reason: NAUSEA/VOMITING Pantoprazole Sodium (Protonix Iv*) 40 mg IV Q24H [facility] Prochlorperazine Edisylate (Compazine Inj*) 5 mg IV Q6H PRN Reason: NAUSEA/ VOMITING Senna (Senokot Tab*) 1 tab PO BID PRN Reason: CONSTIPATION Thiamine HCl (Vitamin B-1 Tab*) 100 mg PO DAILY [facility] Vital Signs - 8 hr 05/01/18 05/01/18 05/01/18 05:46 07:47 07:54 Temperature 99.7 F 99.7 F Pulse Rate 91 86 Respiratory 14 18 18 Rate Blood Pressure 117/74 113/66 (mmHg) O2 Sat by Pulse 96 96 Oximetry 05/01/18 05/01/18 05/01/18 07:55 10:05 10:37 Temperature Pulse Rate Respiratory 18 16 16 Rate Blood Pressure (mmHg) O2 Sat by Pulse Oximetry 05/01/18 05/01/18 05/01/18 10:38 11:45 12:12 Temperature 98.5 F Pulse Rate 84 Respiratory 16 16 16 Rate Blood Pressure 112/71 (mmHg) O2 Sat by Pulse 98 Oximetry Oxygen Devices in Use Now: None Appearance: NAD, laying in bed Ears/Nose/Mouth/Throat: Mucous Membranes Moist Respiratory: Symmetrical Chest Expansion and Respiratory Effort, Clear to Auscultation Cardiovascular: NL Sounds; No Murmurs; No JVD, RRR Abdominal: - - ABD soft, with diffuse tenderness, non distended Extremities: No Edema Skin: No Rash or Ulcers Neurological: Alert and Oriented x 3, NL Muscle Strength and Tone Lines/Tubes/Other Access: Clean, Dry and Intact Peripheral IV - site benign Nutrition: Taking PO's Result Diagrams: 04/30/18 06:26 04/30/18 06:26 Additional Lab and Data: . Microbiology and Other Data: Microbiology 04/29/18 02:35 Stool Occult Blood (QUENTIN) - Final Stool Assess/Plan/Problems-Billing Assessment: Mr. Tyson is a 52 y.o male with a hx of ETOH and drug abuse, ETOH hepatitis, ETOH neuropathy , Pancreatitis, HX of IV drug use., who presented to the emergency room with abdominal pain and melena. - Patient Problems (1) Abdominal pain Code(s): R10.9 - UNSPECIFIED ABDOMINAL PAIN SNOMED Code(s): 26485583 Comment: - Diffuse tenderness to the abd, improving - Suspect secondary to acute on chronic ETOH pancreatitis, hepatitis, and gastritis - Lipase mildly elevated and AST/ALT elevated but continue to trend down (2) Thrombocytopenia Code(s): D69.6 - THROMBOCYTOPENIA, UNSPECIFIED SNOMED Code(s): 596391110 Comment: - Chronic - Suspect secondary to ETOH abuse - Side consulted oncology, recommend hold DVT prop for PLT less than 50,000, patient can be evaluated as outpatient for further work up (3) GI bleed Code(s): K92.2 - GASTROINTESTINAL HEMORRHAGE, UNSPECIFIED SNOMED Code(s): 10106715 Comment: - Positive stool for occult blood - Suspect secondary to gastric irritation - HH stable - Continue PPI (4) Alcohol abuse Code(s): F10.10 - ALCOHOL ABUSE, UNCOMPLICATED SNOMED Code(s): 01120325 Comment: - WAM score 0-4 - Acute and chronic alcoholism with alcoholic hepatitis and pancreatitis. - Patient does not wish have inpatient rehab treatment at this time, states that he would like to go to [facility] alcohol rehab at discharge - Continue [facility] protocol (5) Tobacco abuse Code(s): Z72.0 - TOBACCO USE SNOMED Code(s): 218621305 Comment: - Pt advised to quit smoking and avoid second hand smoke. (6) DVT prophylaxis Code(s): ANH6247 - SNOMED Code(s): 938277836 Comment: - Holding SQ heparin d/t thrombocytopenia (7) Full code status Code(s): Z78.9 - OTHER SPECIFIED HEALTH STATUS SNOMED Code(s): 109664942 Status and Disposition: Inpatient. Stable for discharge to home today. Attending: Supriya Pérez
--- NOTE | 2018-05-02 09:23 | DS ---
CC: Dr. Olivia Charles and Dr. Adiel Pereira at the [facility]; Dr. Vanna Johnson * DISCHARGE SUMMARY: DATE OF ADMISSION: 04/28/18 DATE OF DISCHARGE: 05/01/18 ATTENDING PHYSICIAN: Supriya Pérez DO * (dictated by Elana Melara NP). PRIMARY CARE PROVIDER: Dr. Vanna Johnson. PRIMARY DIAGNOSES: 1. Abdominal pain, suspect secondary to alcoholic pancreatitis, alcoholic hepatitis and gastritis. 2. Melena, suspect secondary to gastric irritation. 3. Thrombocytopenia. SECONDARY DIAGNOSES: 1. Alcohol abuse. 2. Tobacco abuse. STUDIES WHILE IN THE HOSPITAL: 1. Abdomen and pelvis CT on 04/27/18. Radiologist's impression: Fatty infiltration of the liver with marked hepatomegaly. Splenomegaly. Pancreatic head and uncinate process calcification suggestive of chronic pancreatitis. 2. Chest x-ray on 04/29/18. Radiologist's impression: No radiographic evidence for acute cardiopulmonary abnormality on this portable chest x-ray. DISCHARGE MEDICATIONS: New home medications: 1. Folic acid 1 mg oral daily. 2. Multivitamin 1 tablet oral daily. 3. Thiamine 100 mg oral daily. 4. Omeprazole 20 oral daily. HISTORY OF PRESENT ILLNESS/HOSPITAL COURSE: Mr. Molina is a 52-year-old male with past medical history significant for alcohol and tobacco abuse who presented to the emergency room with complaints of worsening back and abdominal pain. The patient had similar symptoms last winter. He had quit drinking over the winter and spring, but then started drinking again. He stated that he was then just continuously drinking sips of alcohol throughout the day to numb his abdominal pain. He was drinking up to 12 packs of beer daily. The patient also followed with [facility] in the past. The patient reports losing weight, but is unsure about how much weight he has lost. His last drink was the day prior to his presentation. While in the emergency room, the patient received IV fluids, Protonix, morphine , Reglan, viscous lidocaine, a GI cocktail, Benadryl, Maalox and was referred to the hospitalist service for further evaluation. The patient had a reported melena and had a positive guaiac. His H and H were stable. We suspect that this was likely secondary to gastric irritation. Additionally, the patient had elevated bilirubin, lipase. It was felt that this was secondary to alcoholic pancreatitis and was also felt this is causing his abdominal pain in addition to alcoholic hepatitis. The patient was able to be transitioned to a regular diet and was taking in small amounts of food. He was still requesting IV pain medication and nausea medication around the clock. The patient was insistent on leaving today. He felt that he would be able to manage without any pain medication at home. The patient was also noted to have thrombocytopenia. This did trend down during his stay. Oncology was consulted who recommended to hold anticoagulation if his platelet counts were less than 50 ,000 and to have an outpatient workup. We suspect this is secondary to his alcohol use. The patient had no further signs of GI bleeding. He had been continued on a PPI during his stay. Mr. Molina is stable for discharge to home today. Vital signs are as follows: Temperature 98.5, heart rate 84, respiratory rate 16, O2 sat 98% on room air, blood pressure 112/71. DISCHARGE PLAN: Mr. Molina will be discharged to home. Activity as tolerated. He has been encouraged to be on a low-fat, low-fiber diet. In regards to his abdominal pain, I suspect this is secondary to alcoholic hepatitis and alcoholic pancreatitis. This has generally improved during his stay, but he continues to have slight pain. I recommended if he continues to complain of abdominal pain that he be referred to GI for an outpatient workup. In regards to his thrombocytopenia, his platelet counts have trended down during his stay from the 70s to the 40s, he should be referred to Hematology for an outpatient workup. In regards to his alcohol abuse, he has been encouraged to stop drinking and to go the [facility]. At discharge, he has been provided with the phone number to call for that. In regards to his tobacco abuse, he has been encouraged to stop smoking. The patient has been asked to return to the emergency room for any chest pain, shortness of breath. He previously followed with Dr. Mack Stevens and has not followed with the primary since Dr. Stevens's detention. The patient has a followup appointment at the [facility] on 05/05/18 at 8: 30 a.m. and he has been accepted by Dr. Vanna Johnson for primary and her office will call with a followup appointment next week and the patient has been encouraged to take multivitamin, folic acid and thiamine. I have also prescribed him omeprazole. This is a summarized report of a complex medical history and hospital stay. For further details, please see the entire medical record. TIME SPENT: Time for this discharge was approximately 50 minutes, greater than half of that was spent with the patient discussing discharge plan and instructions. CONDITION ON DISCHARGE: Improved. ELANA MELARA, MANNIE [id number]/CPS #: [id number] GABI
== END 2018-05-01 15:20 | disposition home or self-care (01) | DRG 432 ==
LOC: ED 20:14 → MED 04-28 02:31
PROVIDERS: ADMIT Pediatrics; ATTEND Hospitalist
DX: K70.10 Alcoholic hepatitis without ascites (principal); K85.20 Alcohol induced acute pancreatitis without necrosis or infection; K92.1 Melena; K86.0 Alcohol-induced chronic pancreatitis; K29.20 Alcoholic gastritis without bleeding; R16.1 Splenomegaly, not elsewhere classified; K70.30 Alcoholic cirrhosis of liver without ascites; R31.9 Hematuria, unspecified; F10.20 Alcohol dependence, uncomplicated; F32.9 Major depressive disorder, single episode, unspecified; D69.6 Thrombocytopenia, unspecified; F17.210 Nicotine dependence, cigarettes, uncomplicated; G62.1 Alcoholic polyneuropathy; Z88.8 Allergy status to other drugs, medicaments and biological substances; Z90.49 Acquired absence of other specified parts of digestive tract; Z82.3 Family history of stroke; Z80.8 Family history of malignant neoplasm of other organs or systems; Z72.89 Other problems related to lifestyle; Z88.6 Allergy status to analgesic agent; Z82.49 Family history of ischemic heart disease and other diseases of the circulatory system
CPT/HCPCS: 36415; 71045; 74176; 76705; 80053; 80074; 80307; 81003; 82272; 82977; 83605; 83690; 83735; 85025; 85060; 85610; 85730; 86140; 93005; 99283; A9270-GY; J0780; J1200; J2060; J2270; J2405; J2765

== ENCOUNTER 2018-05-12 12:00 | Emergency (ER) | payer MEDICARE ==
[2018-05-12 12:21] LABS: ABS Basophils 0 10^3/ul (0-0.2); ABS Eosinophils 0.1 10^3/ul (0-0.6); ABS Lymphocytes 1.1 10^3/ul (1.0-4.8); ABS Monocytes 0.3 10^3/ul (0-0.8); ABS Neutrophils 3.7 10^3/ul (1.5-7.7); ABS Nucleated RBC 0 10^3/ul; Eosinophil % 1.3 % (0-6); Hematocrit 34 % (42-52); Hemoglobin 11.9 g/dl (14.0-18.0); Lymphocyte % 20.5 % (25-47); Mean Corpuscular HGB Conc 35 g/dl (31-36); Mean Corpuscular Hemoglobin 37 pg (27-31); Mean Corpuscular Volume 105 fL (80-94); Mean Platelet Volume 9.1 um3 (7.4-10.4); Nucleated Red Blood Cells % 0; Platelet Count 112 10^3/ul (150-450); Red Blood Count 3.26 10^6/ul (4.00-5.40); Red Cell Distribution Width 18 % (10.5-15); White Blood Count 5.1 10^3/ul (3.5-10.8)
[2018-05-12] MEDS ORDERED: Ondansetron INJ* 2 MG/ML VIAL IV ONE ×2 (12:33→17:10)
[2018-05-12] MEDS ORDERED: Morphine VIAL* 4 MG/ML VIAL (1 ml vial) IV ONE ×2 (12:33→17:10)
[2018-05-12 12:44] LABS: EGFR Non-African American 102.6 (>60)
[2018-05-12] MEDS ORDERED: NS 0.9% 1000 ML* 2,000 ML IV ONE (12:50)
--- NOTE | 2018-05-12 14:19 | ED ---
Abdominal Pain/Male - HPI Summary HPI Summary: Patient is a 52-year-old male presenting to the ED with diffuse abdominal pain which radiates to the back. History of alcohol abuse and acute on chronic pancreatitis, most recent hospitalization just 2 weeks prior. He states he has periods of not drinking, but once he starts drinking again he develops 10/10 diffuse abdominal tenderness and states he is unable to eat. Denies any nausea or vomiting. Denies any constipation or diarrhea. Last drink was at 4 AM. He drinks approximately 10 beers per day. History of IV drug use, alcohol hepatitis. He denies any fevers, sweats, chills. - History of Current Complaint Chief Complaint: EDAbdPain Stated Complaint: ABD PAIN Time Seen by Provider: 05/12/18 12:03 Hx Obtained From: Patient Onset/Duration: Sudden Onset Timing: Constant Severity Initially: Severe Severity Currently: Severe Pain Intensity: 10 Pain Scale Used: 0-10 Numeric Location: Diffuse Radiates: No Character: Sharp, Cramping Aggravating Factor(s): Nothing Alleviating Factor(s): Nothing Associated Signs And Symptoms: Positive: Negative - Risk Factors Testicular Torsion: Negative Cardiac Risk Factors: Negative - Allergies/Home Medications Allergies/Adverse Reactions: Allergies Allergy/AdvReac Type Severity Reaction Status Date / Time pyridoxine Allergy Unknown Verified 04/27/18 20:31 Reaction Details PMH/Surg Hx/FS Hx/Imm Hx Previously Healthy: Yes Endocrine/Hematology History: Denies: Hx Diabetes Cardiovascular History: Denies: Hx Hypertension GI History: Reports: Hx Cirrhosis History: Denies: Hx Renal Disease Sensory History: Denies: Hx Contacts or Glasses, Hx Legally Blind, Hx Deafness, Hx Hearing Aid Opthamlomology History: Denies: Hx Contacts or Glasses, Hx Legally Blind Psychiatric History: Reports: Hx Substance Abuse - cocaine - Surgical History Surgery Procedure, Year, and Place: cholecystectomy - Immunization History Hx Pertussis Vaccination: No Immunizations Up to Date: Unable to Obtain/Confirm Infectious Disease History: No Infectious Disease History: Denies: Traveled Outside the [place] in Last 30 Days - Family History Known Family History: Positive: Other - Cancer in aunt and 3 cousins. CVA grandmother - Social History Occupation: Unemployed Lives: Alone Alcohol Use: Daily Alcohol Amount: up to a 12 pack/daily Hx Substance Use: Yes Substance Use Type: Reports: Cocaine Hx Tobacco Use: Yes Smoking Status (MU): Heavy Every Day Tobacco Smoker Review of Systems Constitutional: Negative Negative: Fever, Chills, Fatigue, Skin Diaphoresis Negative: Palpitations Negative: Shortness Of Breath, Cough Positive: Abdominal Pain. Negative: Vomiting, Diarrhea, Nausea Skin: Negative Neurological: Negative All Other Systems Reviewed And Are Negative: Yes Physical Exam Triage Information Reviewed: Yes Vital Signs On Initial Exam: Initial Vitals Temp Pulse Resp BP Pulse Ox 98 F 89 20 121/69 99 05/12/18 12:12 05/12/18 12:12 05/12/18 12:12 05/12/18 12:12 05/12/18 12:12 Vital Signs Reviewed: Yes Appearance: Positive: Ill-Appearing Skin: Positive: Jaundiced Head/Face: Positive: Normal Head/Face Inspection Eyes: Positive: Other: - scleralicterus Neck: Positive: Supple, No Lymphadenopathy Respiratory/Lung Sounds: Positive: Clear to Auscultation, Breath Sounds Present Abdomen Description: Positive: Other: - diffuse tenderness throughout Musculoskeletal: Positive: Normal, Strength/ROM Intact Neurological: Positive: Alert, Oriented to Person Place, Time, Speech Normal Psychiatric: Positive: Normal, Affect/Mood Appropriate AVPU Assessment: Alert Diagnostics - Vital Signs Vital Signs Temp Pulse Resp BP Pulse Ox 05/12/18 12:40 16 05/12/18 12:12 98 F 89 20 121/69 99 - Laboratory Lab Results: Lab Results 05/12/18 05/12/18 05/12/18 Range/Units 12:12 12:13 12:13 WBC 5.1 (3.5-10.8) 10^3/ul RBC 3.26 L (4.00-5.40) 10^6/ul Hgb 11.9 L (14.0-18.0) g/dl Hct 34 L (42-52) % MCV 105 H (80-94) fL MCH 37 H (27-31) pg MCHC 35 (31-36) g/dl RDW 18 H (10.5-15) % Plt Count 112 L (150-450) 10^3/ul MPV 9.1 (7.4-10.4) um3 Neut % (Auto) 71.6 (38-83) % Lymph % (Auto) 20.5 L (25-47) % [place] % (Auto) 5.9 (0-7) % Eos % (Auto) 1.3 (0-6) % Baso % (Auto) 0.7 (0-2) % Absolute Neuts (auto) 3.7 (1.5-7.7) 10^3/ul Absolute Lymphs (auto) 1.1 (1.0-4.8) 10^3/ul Absolute Monos (auto) 0.3 (0-0.8) 10^3/ul Absolute Eos (auto) 0.1 (0-0.6) 10^3/ul Absolute Basos (auto) 0 (0-0.2) 10^3/ul Absolute Nucleated RBC 0 10^3/ul Nucleated RBC % 0 Sodium 132 L (135-145) mmol/L Potassium 3.8 (3.5-5.0) mmol/L Chloride 95 L (101-111) mmol/L Carbon Dioxide 23 (22-32) mmol/L Anion Gap 14 H (2-11) mmol/L BUN 5 L (6-24) mg/dL Creatinine 0.79 (0.67-1.17) mg/dL Est GFR ( Amer) 124.1 (>60) Est GFR (Non-Af Amer) 102.6 (>60) BUN/Creatinine Ratio 6.3 L (8-20) Glucose 92 (70-100) mg/dL Lactic Acid 4.5 H* (0.5-2.0) mmol/L Calcium 8.5 L (8.6-10.3) mg/dL Total Bilirubin 6.60 H (0.2-1.0) mg/dL GGT 1010 H (9-64.0) U/L AST 277 H (13-39) U/L ALT 78 H (7-52) U/L Alkaline Phosphatase 246 H (34-104) U/L C-Reactive Protein 22.66 H (<8.01) mg/L Total Protein 6.7 (6.4-8.9) g/dL Albumin 2.8 L (3.2-5.2) g/dL Globulin 3.9 (2-4) g/dL Albumin/Globulin Ratio 0.7 L (1-3) Amylase 102 (29-103) U/L Lipase 176 H (11.0-82.0) U/L Serum Alcohol 116 H (<10) mg/dL Result Diagrams: 05/12/18 12:13 05/12/18 12:12 Lab Statement: Any lab studies that have been ordered have been reviewed, and results considered in the medical decision making process. Abdominal Pain Fem Course/Dx - Course Course Of Treatment: During the course of treatment, the patient is evaluated for diffuse abdominal tenderness. He was recently seen here 2 weeks ago for the same and CT abdomen/pelvis as well as ultrasound of the abdomen completed which shows status post cholecystectomy and hepatomegaly and hepatic steatosis. CBD measures 0.6 cm in diameter. GGT 1010, lipase, amylase 102, Lactic is 4.5 , alcohol 116 and elevated LFT's throughout. Discussed case with Dr. Robert who recommends abdominal US limited to assess today's CBD. On physical exam scleralicterus identified and diffuse abdominal tenderness to light tough. Likely will need ERCP as dilatation at 1.1cm. Records will be sent to [facility]. Dr. Torres to accept. - Diagnoses Differential Diagnosis/HQI/PQRI: Gall Bladder Disease, Hepatitis, Pancreatitis Provider Diagnoses: Common bile duct (CBD) obstruction Discharge - Sign-Out/Discharge Documenting (check all that apply): Discharge/Admit/Transfer - Discharge Plan Condition: Fair Disposition: TRANS HIGHER LVL OF CARE FAC Referrals: No Primary Care Phys,NOPCP [Primary Care Provider] - - Billing Disposition and Condition Condition: FAIR Disposition: Trans Higher Lvl of Care Fac
--- NOTE | 2018-05-12 14:23 | RAD ---
HISTORY: assess CBD dilatation COMPARISONS: April 28, 2018 TECHNIQUE: Multiple transverse and longitudinal ultrasound images were obtained of the right upper quadrant of the abdomen using grayscale, color Doppler, and spectral Doppler imaging. FINDINGS: LIVER: The liver is diffusely echogenic and coarse in echotexture, with decreased acoustic transmission. The liver is otherwise normal in shape, size, and contour. There is normal monophasic hepatopedal flow of the portal vein on Doppler imaging. BILIARY TREE: There is dilatation of the common duct. There is no appreciable intrahepatic biliary dilatation. The common duct measures 1.1 cm. GALLBLADDER: The patient is status post cholecystectomy. PANCREAS: The pancreas is obscured by overlying bowel gas. RIGHT KIDNEY: The right kidney is normal in shape, size, contour, and echogenicity. There is no hydronephrosis or nephrolithiasis. The right kidney measures 12 x 4.3 x 4.3 cm. AORTA AND IVC: The aorta is not well visualized. The visualized IVC is unremarkable. FLUID: There are no pleural effusions. There is no free fluid within the hepatorenal recess. OTHER FINDINGS: None. IMPRESSION: FATTY INFILTRATION OF THE LIVER. DILATATION OF THE COMMON DUCT UP TO 1.1 CM.
[2018-05-12 17:28] VITALS: BP 129/72
== END 2018-05-12 17:26 | disposition short-term general hospital (02) ==
LOC: ED 12:00
DX: K83.1 Obstruction of bile duct (principal); K76.0 Fatty (change of) liver, not elsewhere classified; K70.10 Alcoholic hepatitis without ascites; F17.200 Nicotine dependence, unspecified, uncomplicated; Z79.899 Other long term (current) drug therapy; Z90.49 Acquired absence of other specified parts of digestive tract
CPT/HCPCS: 36415; 76705; 80053; 80320; 82150; 82977; 83605; 83690; 85025; 86140; 93005; 96374; 96375; 96376; 99285; G0480; J2270; J2405

== ENCOUNTER 2018-05-28 18:38 | Inpatient (IN) | payer MEDICARE ==
[2018-05-28 23:12] LABS: ABS Basophils 0.1 10^3/ul (0-0.2); ABS Eosinophils 0.2 10^3/ul (0-0.6); ABS Lymphocytes 1.9 10^3/ul (1.0-4.8); ABS Monocytes 0.3 10^3/ul (0-0.8); ABS Neutrophils 6.1 10^3/ul (1.5-7.7); ABS Nucleated RBC 0 10^3/ul; Eosinophil % 1.9 % (0-6); Hematocrit 41 % (42-52); Hemoglobin 13.9 g/dl (14.0-18.0); Lymphocyte % 22.4 % (25-47); Mean Corpuscular HGB Conc 34 g/dl (31-36); Mean Corpuscular Hemoglobin 37 pg (27-31); Mean Corpuscular Volume 107 fL (80-94); Mean Platelet Volume 9.4 um3 (7.4-10.4); Nucleated Red Blood Cells % 0.2; Platelet Count 121 10^3/ul (150-450); Red Blood Count 3.78 10^6/ul (4.00-5.40); Red Cell Distribution Width 15 % (10.5-15); White Blood Count 8.5 10^3/ul (3.5-10.8)
[2018-05-28 23:17] LABS: EGFR Non-African American 94.3 (>60)
--- NOTE | 2018-05-29 00:33 | ED ---
Complex/Multi-Sys Presentation - HPI Summary HPI Summary: This is scribe Laureano Smiley documenting for attending Dr. Alexandre Saucedo MD. A 52 y/o male presents to ED c/o his diffuse body burning. As per triage, ""I'm sick"", patient states he is an alcoholic and can not eat for an unknown reason. States 12 pack a day, has had 6 beers today." According to the patient his body has diffuse burning. Because of the burning he cannot eat as the food does not go down. He noted that the food "doesn't taste good" and he can't swallow. Additionally noted that he cannot take care of himself because of being an alcoholic. He doesn't know how to take care of himself. He does have a place to live but he stated that his "house is a disaster". He does want to stop drinking and has tried before but failed. He stated that he can stop for months at a time for his drinking issue. His stomach madison for withdrawal symptoms. Also, he stated he had seizures and DT for withdrawal symptoms a long time ago. He was in the hospital for 8 days a couple weeks ago and was transferred to [facility] for possible gallstones, but none were found. Does not want to go to . PMHx of stomach ulcers. - History Of Current Complaint Chief Complaint: EDGeneral Time Seen by Provider: 05/28/18 23:57 Hx Obtained From: Patient Onset/Duration: Sudden Onset, Still Present Timing: Constant Aggravating Factor(s): NOTHING Alleviating Factor(s): NOTHING - Allergies/Home Medications Allergies/Adverse Reactions: Allergies Allergy/AdvReac Type Severity Reaction Status Date / Time No Known Allergies Allergy Verified 05/29/18 00:54 PMH/Surg Hx/FS Hx/Imm Hx Endocrine/Hematology History: Denies: Hx Diabetes Cardiovascular History: Denies: Hx Hypertension GI History: Reports: Hx Cirrhosis History: Denies: Hx Renal Disease Sensory History: Denies: Hx Contacts or Glasses, Hx Legally Blind, Hx Deafness, Hx Hearing Aid Opthamlomology History: Denies: Hx Contacts or Glasses, Hx Legally Blind Psychiatric History: Reports: Hx Substance Abuse - cocaine - Surgical History Surgery Procedure, Year, and Place: cholecystectomy Infectious Disease History: No Infectious Disease History: Denies: Traveled Outside the [place] in Last 30 Days - Family History Known Family History: Positive: Other - Cancer in aunt and 3 cousins. CVA grandmother - Social History Alcohol Use: Daily Alcohol Amount: up to a 12 pack/daily Hx Substance Use: Yes Substance Use Type: Reports: Cocaine Hx Tobacco Use: Yes Smoking Status (MU): Heavy Every Day Tobacco Smoker Review of Systems Negative: Fever Positive: Other - POSITIVE: Diffuse body burning sensation All Other Systems Reviewed And Are Negative: Yes Physical Exam - Summary Physical Exam Summary: Appearance: Well-appearing, Well-nourished, lying in bed comfortably Skin: Warm, dry, no obvious rash Eyes: sclera anicteric, no conjunctival pallor ENT: mucous membranes moist, pharynx appears normal Neck: Supple, nontender Respiratory: Clear to auscultation, no signs of respiratory distress Cardiovascular: Normal S1, S2. No murmurs. Normal distal pulses in tibial and radial bilaterally. Abdomen: Soft. Normal active bowel sounds present. Notable generalized abdominal tenderness with guarding, no rebound. Musculoskeletal: Normal, Strength/ROM Intact Neurological: A&Ox3, awake and alert, mentation is normal, speech is fluent and appropriate Psychiatric: affect is normal, does not appear anxious or depressed Triage Information Reviewed: Yes Vital Signs On Initial Exam: Initial Vitals Temp Pulse Resp BP Pulse Ox 96.7 F 98 18 120/39 96 05/28/18 18:42 05/28/18 18:42 05/28/18 18:42 05/28/18 18:42 05/28/18 18:42 Vital Signs Reviewed: Yes Diagnostics - Vital Signs Vital Signs Temp Pulse Resp BP Pulse Ox 05/28/18 23:05 97.6 F 100 20 117/74 99 05/28/18 20:54 98.2 F 114 16 123/84 98 05/28/18 18:42 96.7 F 98 18 120/39 96 - Laboratory Lab Results: Lab Results 05/28/18 05/28/18 Range/Units 22:49 22:49 WBC 8.5 (3.5-10.8) 10^3/ul RBC 3.78 L (4.00-5.40) 10^6/ul Hgb 13.9 L (14.0-18.0) g/dl Hct 41 L (42-52) % MCV 107 H (80-94) fL MCH 37 H (27-31) pg MCHC 34 (31-36) g/dl RDW 15 (10.5-15) % Plt Count 121 L (150-450) 10^3/ul MPV 9.4 (7.4-10.4) um3 Neut % (Auto) 71.4 (38-83) % Lymph % (Auto) 22.4 L (25-47) % [place] % (Auto) 3.5 (0-7) % Eos % (Auto) 1.9 (0-6) % Baso % (Auto) 0.8 (0-2) % Absolute Neuts (auto) 6.1 (1.5-7.7) 10^3/ul Absolute Lymphs (auto) 1.9 (1.0-4.8) 10^3/ul Absolute Monos (auto) 0.3 (0-0.8) 10^3/ul Absolute Eos (auto) 0.2 (0-0.6) 10^3/ul Absolute Basos (auto) 0.1 (0-0.2) 10^3/ul Absolute Nucleated RBC 0 10^3/ul Nucleated RBC % 0.2 Sodium 128 L (135-145) mmol/L Potassium 3.6 (3.5-5.0) mmol/L Chloride 91 L (101-111) mmol/L Carbon Dioxide 25 (22-32) mmol/L Anion Gap 12 H (2-11) mmol/L BUN 4 L (6-24) mg/dL Creatinine 0.85 (0.67-1.17) mg/dL Est GFR ( Amer) 114.1 (>60) Est GFR (Non-Af Amer) 94.3 (>60) BUN/Creatinine Ratio 4.7 L (8-20) Glucose 121 H (70-100) mg/dL Calcium 8.8 (8.6-10.3) mg/dL Total Bilirubin 4.00 H (0.2-1.0) mg/dL AST 206 H (13-39) U/L ALT 58 H (7-52) U/L Alkaline Phosphatase 293 H (34-104) U/L Total Protein 7.6 (6.4-8.9) g/dL Albumin 3.2 (3.2-5.2) g/dL Globulin 4.4 H (2-4) g/dL Albumin/Globulin Ratio 0.7 L (1-3) Serum Alcohol 320 H (<10) mg/dL Result Diagrams: 05/28/18 22:49 05/29/18 09:18 Lab Statement: Any lab studies that have been ordered have been reviewed, and results considered in the medical decision making process. Complex Multi-Symp Course/Dx - Diagnoses Provider Diagnoses: Alcohol abuse, Tobacco abuse, Abdominal pain - Physician Notifications Discussed Care Of Patient With: Supriya Pérez Time Discussed With Above Provider: 00:49 Instructed by Provider To: Other - Accepts for admission Discharge - Sign-Out/Discharge Documenting (check all that apply): Patient Departure - ADMIT - Discharge Plan Condition: Stable Disposition: ADMITTED TO [facility] - Billing Disposition and Condition Condition: STABLE Disposition: Admitted to [facility]
[2018-05-29] MEDS ORDERED: PROCHLORPERAZINE INJ 5 MG/ML 2 ML VIAL IV PRN (01:45)
[2018-05-29] MEDS ORDERED: Ondansetron INJ* 2 MG/ML VIAL IV PRN (01:45)
[2018-05-29] MEDS ORDERED: Mouth Piece, Nicotine* 1 EACH CARTRIDGE INH ONE (01:56)
[2018-05-29] MEDS ORDERED: Nicotine Inhaler* 10 MG AMP INH PRN (01:56)
[2018-05-29] MEDS: NS 0.9% 1000 ML* 1,000 ML IV SCH ×4 (03:09→22:57)
[2018-05-29] MEDS: Pantoprazole IV* 40 MG IV SCH ×2 (03:20→14:29)
--- NOTE | 2018-05-29 03:37 | HP ---
HISTORY AND PHYSICAL: DATE OF ADMISSION: 05/29/18 PRIMARY CARE PROVIDER: None. CHIEF COMPLAINT: Abdominal pain. HISTORY OF PRESENT ILLNESS: Mr. Tyson is a 52-year-old male with history of alcoholism and tobacco abuse, who presents to the emergency room with complaints of abdominal pain. The patient initially when I went into admit him , is sleeping. When I wake him up and asked him why he is in the emergency room , he states that he does not know. I then asked him if he has abdominal pain as I had been informed, he initially states no, but then does elaborate saying that he has a burning sensation in his stomach. He states following his last discharge, he did stay sober for 1 to march be 2 weeks. The abdominal pain then got to be severe and he states he went back to drinking to calm the abdominal pain. The patient also states that he has been vomiting. At this point, the patient is very sleepy and is a poor historian and unable to provide really a clear history of what has been going on. PAST MEDICAL HISTORY: 1. History of alcoholic pancreatitis. 2. History of alcoholic hepatitis. 3. Past history of IV drug abuse. 4. Tobacco abuse. ALLERGIES: IBUPROFEN and PYRIDOXINE. MEDICATIONS: The patient was discharged on: 1. Thiamine 100 mg p.o. daily. 2. Omeprazole 20 mg p.o. daily. 3. Multivitamin 1 tab p.o. daily. 4. Folic acid 1 mg p.o. daily. FAMILY HISTORY: Mom from complications of brain aneurysm at 60. Dad's history is unknown. SOCIAL HISTORY: The patient lives alone. He drinks 12-pack of beer per day. He smokes approximately 1 pack of cigarettes per day. He does not have a healthcare proxy. REVIEW OF SYSTEMS: An attempted review of systems is obtained. Pertinent positives and negatives are as per HPI and otherwise negative. PHYSICAL EXAMINATION GENERAL: The patient is a well-developed, middle-aged male, sleeping in stretcher, awakens to voice, in no acute distress. VITAL SIGNS: Blood pressure 102/63, pulse 93, respirations 20, temp 97.6, O2 sat 93% on room air. HEENT: Pupils are equal and round. Extraocular muscles are intact. Oropharynx is clear. Oral mucosa is dry. There is no submandibular, cervical, or supraclavicular adenopathy. Thyroid is not enlarged. No thyroid nodules are noted. PULMONARY: Lungs are clear to auscultation bilaterally. CARDIAC: Normal S1, S2. Regular rate and rhythm. I do not appreciate any murmur. There is no lower extremity edema. ABDOMEN: Bowel sounds are present. Abdomen is soft, nondistended. He is diffusely tender, but worst in the epigastrium. MUSCULOSKELETAL: There is no cyanosis or clubbing of the digits. There is full active range of motion of all 4 extremities. NEURO: Cranial nerves II through XII are grossly intact. Sensation is intact to light touch throughout. Strength is 5/5 and symmetric in both upper and lower extremities bilaterally. PSYCH: The patient is alert. He is oriented x3. Affect appears appropriate. SKIN: Warm and dry. There are no rashes. DIAGNOSTIC STUDIES/LAB DATA: WBC 8.5, hemoglobin 13.9, hematocrit 41, platelets 121. Sodium 128, potassium 3.6, chloride 91, CO2 25, BUN 4, creatinine 0.85. Glucose 121, calcium 8.8, bilirubin 4.0, AST 206, ALT 58, alk phos is 293. Albumin 3.2. Lipase 120. Alcohol level 320. Urine drug screen negative. ASSESSMENT AND PLAN: Mr. Tyson is a 52-year-old male with history of alcohol abuse, who presents to the emergency room with complaints of epigastric abdominal pain that is described as burning in nature and is admitted for probable alcoholic hepatitis and pancreatitis. 1. Abdominal pain. I suspect the patient's abdominal pain is combination from possible alcoholic pancreatitis and hepatitis as well as likely gastritis from his alcoholism. The patient will be started on Protonix 40 mg IV q. 12 hours. Additionally, he will have Carafate 1 g p.o. q. a.c. h.s. The patient will have Zofran and Compazine available for nausea. He will be on a clear liquid diet. Last hospitalization there was concern for melena. The patient does not describe this to me today. His hemoglobin and hematocrit are improved from last month, though this could be volume depletion and will need to be monitored. I do not think he needs a GI consultation at this point, but it could be considered if he fails to improve. Of note, the patient's bilirubin is elevated at 4.0, however, this is improved from his last hospitalization. The patient had an abdominal ultrasound on 04/28/18 for elevated bilirubin and at that time hepatomegaly and hepatosteatosis was noted, no stones were noted and the patient is status post cholecystectomy. I will not repeat any imaging at this point. 2. Alcohol abuse. The patient's alcohol level is 360. He will be placed on the [facility] protocol as it is likely that he will go through withdrawal. 3. Tobacco abuse. The patient will have a nicotine inhaler available for cravings. 4. DVT prophylaxis. According to the Adult Thrombosis Prophylaxis Risk Factor Assessment Guide, the patient has a total risk factor score of 1, making him low risk. Ambulation and SCDs will be utilized as DVT prophylaxis. 5. Code status is full. TIME SPENT: Fifty minutes was spent admitting this patient, of which greater than half was spent reviewing the patient's past admission and interviewing the patient. [id number]/CPS #: [id number] GABI
[2018-05-29] MEDS: Al Hydrox/Mg Hydrox/Simet LIQ* 30 ML UDC PO PRN ×3 (07:33→22:53)
[2018-05-29] MEDS: Sucralfate TAB* 1 GM PO SCH ×4 (07:33→21:47)
[2018-05-29] MEDS: Folic Acid TAB* 1 MG PO SCH (08:00)
[2018-05-29] MEDS: Thiamine TAB* 100 MG TAB PO SCH (08:00)
[2018-05-29] MEDS: Multivitamins/Minerals TAB PO SCH (08:00)
[2018-05-29] MEDS ORDERED: Ondansetron ODT TAB* 4 MG PO PRN (12:38)
[2018-05-29] MEDS ORDERED: LORazepam TAB(*) 1 MG PO ONE (12:38)
--- NOTE | 2018-05-29 12:51 | PN ---
Subjective Date of Service: 05/29/18 Interval History: Patient was seen and examined at bedside. Reports feeling about the same. Occasional epigastric pain, better with eating, minimal nausea, no emesis. Feels shaky at times, on [facility] protocol for ETOH withdraw. Denies seizures, headaches, chest pain or SOB. He asked for Morphine to control his pain, also asked for Zofran, says it helped him when he was at [facility] 2 weeks ago for the "same thing". Denies hematemesis or melena. Tolerating clear liquids. Family History: Unchanged from Admission Social History: Unchanged from Admission Past Medical History: Unchanged from Admission Objective Active Medications: Al Hydrox/Mg Hydrox/Simethicone (Maalox Plus*) 30 ml PO Q4H PRN PRN Reason: INDIGESTION Last Admin: 05/29/18 07:33 Dose: 30 ml Folic Acid (Folvite Tab*) 1 mg PO DAILY [facility] Last Admin: 05/29/18 08:00 Dose: Not Given Sodium Chloride (Ns 0.9% 1000 Ml*) 1,000 mls @ 100 mls/hr IV PER RATE [facility] Last Admin: 05/29/18 03:09 Dose: 100 mls/hr Lorazepam (Ativan Tab(*)) 0 mg PO Q2H PRN; Protocol PRN Reason: alcohol withdrawal Multivitamins/Minerals (Theragran/Minerals Tab*) 1 tab PO DAILY [facility] Last Admin: 05/29/18 08:00 Dose: Not Given Nicotine (Nicotine Inhaler*) 10 mg INH Q2H PRN PRN Reason: CRAVING Last Admin: 05/29/18 03:11 Dose: 10 mg Ondansetron HCl (Zofran Inj*) 4 mg IV Q6H PRN PRN Reason: NAUSEA Ondansetron HCl (Zofran Odt Tab*) 4 mg PO Q6H PRN PRN Reason: NAUSEA Pantoprazole Sodium (Protonix Iv*) 40 mg IV Q12H [facility] Last Admin: 05/29/18 03:20 Dose: 40 mg Prochlorperazine Edisylate (Compazine Inj*) 10 mg IV Q6H PRN PRN Reason: NAUSEA/VOMITING Sucralfate (Carafate*) 1 gm PO ACHS [facility] Last Admin: 05/29/18 12:44 Dose: 1 gm Thiamine HCl (Vitamin B-1 Tab*) 100 mg PO DAILY [facility] Last Admin: 05/29/18 08:00 Dose: Not Given Tramadol HCl (Ultram*) 50 mg PO Q6H PRN PRN Reason: PAIN Vital Signs - 8 hr 05/29/18 05/29/18 05/29/18 05:01 07:10 08:00 Temperature 98.0 F 98.4 F Pulse Rate 91 101 Respiratory 12 16 16 Rate Blood Pressure 107/60 96/61 (mmHg) O2 Sat by Pulse 98 96 Oximetry 05/29/18 05/29/18 09:09 11:06 Temperature 99.2 F 99.2 F Pulse Rate 101 94 Respiratory 16 18 Rate Blood Pressure 106/57 110/73 (mmHg) O2 Sat by Pulse 92 97 Oximetry Oxygen Devices in Use Now: None Appearance: Eating lunch, subtle shakes using spoon noted. Appears comfortable and in NAD. Eyes: No Scleral Icterus, PERRLA Ears/Nose/Mouth/Throat: Clear Oropharnyx, Mucous Membranes Moist Neck: NL Appearance and Movements; NL JVP, Trachea Midline Respiratory: Symmetrical Chest Expansion and Respiratory Effort, Clear to Auscultation Cardiovascular: NL Sounds; No Murmurs; No JVD, RRR Abdominal: - - Abdomen with moderate epigastric tenderness. No distension. No guarding or rigidity. No rebound tenderness. Extremities: No Edema Skin: No Rash or Ulcers Neurological: Alert and Oriented x 3, NL Sensation, NL Muscle Strength and Tone Lines/Tubes/Other Access: Clean, Dry and Intact Peripheral IV - NS 0.9% @ 100ml/ hr Nutrition: Taking PO's Result Diagrams: 05/28/18 22:49 05/29/18 09:18 Additional Lab and Data: Lab Results 05/28/18 05/28/18 Range/Units 22:49 22:49 WBC 8.5 (3.5-10.8) 10^3/ul RBC 3.78 L (4.00-5.40) 10^6/ul Hgb 13.9 L (14.0-18.0) g/dl Hct 41 L (42-52) % MCV 107 H (80-94) fL MCH 37 H (27-31) pg MCHC 34 (31-36) g/dl RDW 15 (10.5-15) % Plt Count 121 L (150-450) 10^3/ul MPV 9.4 (7.4-10.4) um3 Neut % (Auto) 71.4 (38-83) % Lymph % (Auto) 22.4 L (25-47) % [place] % (Auto) 3.5 (0-7) % Eos % (Auto) 1.9 (0-6) % Baso % (Auto) 0.8 (0-2) % Absolute Neuts (auto) 6.1 (1.5-7.7) 10^3/ul Absolute Lymphs (auto) 1.9 (1.0-4.8) 10^3/ul Absolute Monos (auto) 0.3 (0-0.8) 10^3/ul Absolute Eos (auto) 0.2 (0-0.6) 10^3/ul Absolute Basos (auto) 0.1 (0-0.2) 10^3/ul Absolute Nucleated RBC 0 10^3/ul Nucleated RBC % 0.2 Sodium 128 L (135-145) mmol/L Potassium 3.6 (3.5-5.0) mmol/L Chloride 91 L (101-111) mmol/L Carbon Dioxide 25 (22-32) mmol/L Anion Gap 12 H (2-11) mmol/L BUN 4 L (6-24) mg/dL Creatinine 0.85 (0.67-1.17) mg/dL Est GFR ( Amer) 114.1 (>60) Est GFR (Non-Af Amer) 94.3 (>60) BUN/Creatinine Ratio 4.7 L (8-20) Glucose 121 H (70-100) mg/dL Calcium 8.8 (8.6-10.3) mg/dL Total Bilirubin 4.00 H (0.2-1.0) mg/dL AST 206 H (13-39) U/L ALT 58 H (7-52) U/L Alkaline Phosphatase 293 H (34-104) U/L Total Protein 7.6 (6.4-8.9) g/dL Albumin 3.2 (3.2-5.2) g/dL Globulin 4.4 H (2-4) g/dL Albumin/Globulin Ratio 0.7 L (1-3) Serum Alcohol 320 H (<10) mg/dL Microbiology and Other Data: Stool for occult blood pending. Diagnostic Imaging: . EKG Data: . Assess/Plan/Problems-Billing Assessment: A 52 y/o male with PMH ETOH abuse, alcoholic pancreatitis and PUD, who was presented to ED with burning epigastric pain likely secondary to gastritis vs pancreatitis. - Patient Problems (1) Abdominal pain Current Visit: No Status: Acute Comment: - Epigastric tenderness to the abdomen, Hx PUD - Suspect secondary to acute on chronic ETOH pancreatitis, hepatitis, and gastritis - Lipase mildly elevated and AST/ALT appears to be at his baseline - Continue coverage with PPI and Carafate - Malaxx improves his symptoms - Check stools for occult blood, no melena recently - Last EGD at [facility] per patient 2 weeks ago with "ulcers" - Clear liquid diet for now, seems to tolerate it well. - H/H stable, may need a GI consult if significant drop in H/H or evidence of GI bleed (2) Alcohol abuse Current Visit: No Status: Acute Comment: - WAM score 0-4 - Acute and chronic alcoholism with alcoholic hepatitis and pancreatitis. - Patient does not wish have inpatient rehab treatment at this time. - Continue [facility] protocol (3) Tobacco abuse Current Visit: No Status: Acute Comment: - Pt advised to quit smoking. - Nicotine patch and inhaler for cravings (4) History of peptic ulcer disease Current Visit: Yes Status: Acute Comment: - Continue PPI and Carafate coverage - Hemodynamically stable, no evidence of active GI bleed - Check labs tomorrow, stools for occult blood - GI consult on hold for now. (5) DVT prophylaxis Current Visit: No Status: Acute Comment: - Low risk, will ambulate and SCDs (6) Full code status Current Visit: No Status: Acute Status and Disposition: Observe, possible inpatient if still symptomatic tomorrow, anticipate discharge when medically stable.
[2018-05-29] MEDS: LORazepam TAB(*) 0.5 MG PO PRN ×2 (16:58→21:54)
[2018-05-29] MEDS: traMADol TAB* 50 MG PO PRN (20:00)
[2018-05-30] MEDS: Pantoprazole IV* 40 MG IV SCH ×3 (03:01→15:46)
[2018-05-30] MEDS: traMADol TAB* 50 MG PO PRN ×3 (07:09→21:04)
[2018-05-30] MEDS: Sucralfate TAB* 1 GM PO SCH ×4 (07:35→21:04)
[2018-05-30] MEDS: Al Hydrox/Mg Hydrox/Simet LIQ* 30 ML UDC PO PRN (07:35)
--- NOTE | 2018-05-30 07:51 | PN ---
Subjective Date of Service: 05/30/18 Interval History: Patient seen and examined at bedside. Denies fever, chills, shortness of breath , chest discomfort, N/V/D. Pt continues to have abdominal pain. Jerry is concerned that he is "withering" away because he isn't eating at home. He states he is unable to get to the store to buy food and prepare food due to weakness. We discussed the possibility of meals on wheels vs [facility] or assisted living. Pt is interested in talking to [place] planning to learn more. He reports black stools on admission, that he contributes to not eating, he denies any owen blood in his stools. Family History: Unchanged from Admission Social History: Unchanged from Admission Past Medical History: Unchanged from Admission Objective Active Medications: Al Hydrox/Mg Hydrox/Simethicone (Maalox Plus*) 30 ml PO Q4H PRN Reason: INDIGESTION Folic Acid (Folvite Tab*) 1 mg PO DAILY [facility] Sodium Chloride (Ns 0.9% 1000 Ml*) 1,000 mls @ 100 mls/hr IV PER RATE [facility] Lorazepam (Ativan Tab(*)) 0 mg PO Q2H PRN; Protocol Reason: alcohol withdrawal Multivitamins/Minerals (Theragran/Minerals Tab*) 1 tab PO DAILY [facility] Nicotine (Nicotine Inhaler*) 10 mg INH Q2H PRN Reason: CRAVING Ondansetron HCl (Zofran Inj*) 4 mg IV Q6H PRN Reason: NAUSEA Ondansetron HCl (Zofran Odt Tab*) 4 mg PO Q6H PRN Reason: NAUSEA Pantoprazole Sodium (Protonix Iv*) 40 mg IV Q12H [facility] Prochlorperazine Edisylate (Compazine Inj*) 10 mg IV Q6H PRN Reason: NAUSEA/ VOMITING Sucralfate (Carafate*) 1 gm PO ACHS [facility] Thiamine HCl (Vitamin B-1 Tab*) 100 mg PO DAILY [facility] Tramadol HCl (Ultram*) 50 mg PO Q6H PRN Reason: PAIN Vital Signs - 8 hr 05/30/18 05/30/18 05/30/18 00:58 02:54 03:45 Temperature 99.2 F 100.1 F Pulse Rate 80 93 Respiratory 18 20 18 Rate Blood Pressure 117/65 119/67 (mmHg) O2 Sat by Pulse 98 96 Oximetry 05/30/18 05/30/18 05:14 07:09 Temperature 99.6 F Pulse Rate 81 Respiratory 18 20 Rate Blood Pressure 122/69 (mmHg) O2 Sat by Pulse 95 Oximetry Oxygen Devices in Use Now: None Appearance: NAD, laying in bed Ears/Nose/Mouth/Throat: Mucous Membranes Moist Respiratory: Symmetrical Chest Expansion and Respiratory Effort, Clear to Auscultation Cardiovascular: NL Sounds; No Murmurs; No JVD, RRR Abdominal: - - Abdomen soft, diffuse tenderness, bowel sounds present Extremities: No Edema Skin: No Rash or Ulcers Neurological: Alert and Oriented x 3, NL Muscle Strength and Tone Lines/Tubes/Other Access: Clean, Dry and Intact Peripheral IV - site benign Nutrition: Taking PO's Result Diagrams: 05/28/18 22:49 05/29/18 09:18 Additional Lab and Data: . Microbiology and Other Data: Microbiology 05/29/18 17:05 Stool Stool Occult Blood (QUENTIN) - Positive Diagnostic Imaging: . EKG Data: . Assess/Plan/Problems-Billing Assessment: Mr. Tyson is a 52 y/o male with PMH ETOH abuse, alcoholic pancreatitis and PUD , who was presented to ED with burning epigastric pain likely secondary to gastritis vs pancreatitis. - Patient Problems (1) Abdominal pain Code(s): R10.9 - UNSPECIFIED ABDOMINAL PAIN SNOMED Code(s): 55536966 Comment: - Epigastric tenderness to the abdomen, Hx PUD - Suspect secondary to acute on chronic ETOH pancreatitis, hepatitis, and gastritis - Lipase mildly elevated and AST/ALT appears to be at his baseline - Malaxx improves his symptoms - Stool for occult blood positive, no melena recently - Last EGD at [facility] per patient 2 weeks ago with "ulcers" - H/H stable, may need a GI consult if significant drop in H/H or evidence of GI bleed - Clear liquid diet for now, seems to tolerate it well - Continue PPI, Carafate, and Malaxx (2) Alcohol abuse Code(s): F10.10 - ALCOHOL ABUSE, UNCOMPLICATED SNOMED Code(s): 16845402 Comment: - WAM score 4-6 - Acute and chronic alcoholism with alcoholic hepatitis and pancreatitis - Patient does not wish have inpatient rehab treatment at this time - Continue [facility] protocol (3) History of peptic ulcer disease Code(s): Z87.11 - PERSONAL HISTORY OF PEPTIC ULCER DISEASE SNOMED Code(s): 290227337 Comment: - Hemodynamically stable, Positive stool for occult blood - GI consult on hold for now - Continue PPI and Carafate coverage (4) Tobacco abuse Code(s): Z72.0 - TOBACCO USE SNOMED Code(s): 188427487 Comment: - Pt advised to quit smoking. - Nicotine patch and inhaler for cravings (5) Thrombocytopenia Code(s): D69.6 - THROMBOCYTOPENIA, UNSPECIFIED SNOMED Code(s): 375123967 Comment: - Chronic - Suspect secondary to ETOH abuse - Outpatient Oncology follow-up for further work up (6) DVT prophylaxis Code(s): LBZ5724 - SNOMED Code(s): 437995507 Comment: - Encourage ambulation and SCDs (7) Full code status Code(s): Z78.9 - OTHER SPECIFIED HEALTH STATUS SNOMED Code(s): 278747430 Status and Disposition: OBV to Inpatient. Anticipate discharge when medically stable.
[2018-05-30] MEDS: Folic Acid TAB* 1 MG PO SCH (07:59)
[2018-05-30] MEDS: Multivitamins/Minerals TAB PO SCH (07:59)
[2018-05-30] MEDS: Thiamine TAB* 100 MG TAB PO SCH (07:59)
[2018-05-30 08:24] LABS: Hematocrit 34 % (42-52); Hemoglobin 11.4 g/dl (14.0-18.0)
[2018-05-30] MEDS: NS 0.9% 1000 ML* 1,000 ML IV SCH (08:24)
[2018-05-30] MEDS: LORazepam TAB(*) 0.5 MG PO PRN ×2 (08:24→16:44)
[2018-05-30] MEDS: Omeprazole CAP* 20 MG PO SCH (21:03)
[2018-05-31] MEDS: LORazepam TAB(*) 0.5 MG PO PRN (04:46)
[2018-05-31] MEDS: Al Hydrox/Mg Hydrox/Simet LIQ* 30 ML UDC PO PRN (04:46)
[2018-05-31] MEDS: traMADol TAB* 50 MG PO PRN (04:47)
[2018-05-31 07:26] LABS: Hematocrit 35 % (42-52); Hemoglobin 11.7 g/dl (14.0-18.0)
[2018-05-31 07:42] LABS: EGFR Non-African American 128.5 (>60)
[2018-05-31] MEDS: Sucralfate TAB* 1 GM PO SCH ×2 (07:55→11:37)
[2018-05-31] MEDS: Folic Acid TAB* 1 MG PO SCH (07:55)
[2018-05-31] MEDS: Thiamine TAB* 100 MG TAB PO SCH (07:55)
[2018-05-31] MEDS: Multivitamins/Minerals TAB PO SCH (07:55)
[2018-05-31] MEDS: Omeprazole CAP* 20 MG PO SCH (07:55)
--- NOTE | 2018-05-31 10:46 | PN ---
Subjective Date of Service: 05/31/18 Interval History: Patient seen and examined at bedside. Denies fever, chills, shortness of breath , chest discomfort, N/V/D. Jrery states that his abdominal pain is improved and he wants to go home today. He is no longer interested in assisted living. He states that he missed his PCP appointment on 05/27 because he got the dates mixed up. He declines staying today to assist him with his medications. Records from [facility] reviewed, it appears that the patient underwent an ERCP while there. There was no CBD stone at the time of the ERCP. Family History: Unchanged from Admission Social History: Unchanged from Admission Past Medical History: Unchanged from Admission Objective Active Medications: Al Hydrox/Mg Hydrox/Simethicone (Maalox Plus*) 30 ml PO Q4H PRN Reason: INDIGESTION Folic Acid (Folvite Tab*) 1 mg PO DAILY NORMA Lorazepam (Ativan Tab(*)) 0 mg PO Q2H PRN; Protocol Reason: alcohol withdrawal Multivitamins/Minerals (Theragran/Minerals Tab*) 1 tab PO DAILY NORMA Nicotine (Nicotine Inhaler*) 10 mg INH Q2H PRN Reason: CRAVING Omeprazole (Prilosec Cap*) 20 mg PO BID NORMA Ondansetron HCl (Zofran Inj*) 4 mg IV Q6H PRN Reason: NAUSEA Ondansetron HCl (Zofran Odt Tab*) 4 mg PO Q6H PRN Reason: NAUSEA Prochlorperazine Edisylate (Compazine Inj*) 10 mg IV Q6H PRN Reason: NAUSEA/ VOMITING Sucralfate (Carafate*) 1 gm PO ACHS NORMA Thiamine HCl (Vitamin B-1 Tab*) 100 mg PO DAILY NORMA Tramadol HCl (Ultram*) 50 mg PO Q6H PRN Reason: PAIN Vital Signs - 8 hr 05/31/18 05/31/18 05/31/18 04:16 04:46 04:47 Temperature 99.1 F Pulse Rate 86 Respiratory 18 18 Rate Blood Pressure 123/74 (mmHg) O2 Sat by Pulse 94 Oximetry 05/31/18 05/31/18 05/31/18 06:40 07:30 07:57 Temperature 98.6 F Pulse Rate 77 Respiratory 16 16 16 Rate Blood Pressure 128/75 (mmHg) O2 Sat by Pulse 95 Oximetry 05/31/18 05/31/18 08:00 10:06 Temperature 99.0 F 98.9 F Pulse Rate 89 80 Respiratory 16 16 Rate Blood Pressure 129/79 121/75 (mmHg) O2 Sat by Pulse 96 97 Oximetry Oxygen Devices in Use Now: None Appearance: NAD, sitting up in a chair Ears/Nose/Mouth/Throat: Mucous Membranes Moist Respiratory: Symmetrical Chest Expansion and Respiratory Effort, Clear to Auscultation Cardiovascular: NL Sounds; No Murmurs; No JVD, RRR Abdominal: NL Sounds; No Tenderness; No Distention Extremities: No Edema Skin: No Rash or Ulcers Neurological: Alert and Oriented x 3, NL Muscle Strength and Tone Nutrition: Taking PO's Result Diagrams: 05/31/18 06:55 05/31/18 09:20 Additional Lab and Data: . Microbiology and Other Data: Microbiology 05/29/18 17:05 Stool Stool Occult Blood (QUENTIN) - Positive Diagnostic Imaging: . EKG Data: . Assess/Plan/Problems-Billing Assessment: Mr. Tyson is a 52 y/o male with PMH ETOH abuse, alcoholic pancreatitis and PUD , who was presented to ED with burning epigastric pain likely secondary to gastritis vs pancreatitis. - Patient Problems (1) Abdominal pain Code(s): R10.9 - UNSPECIFIED ABDOMINAL PAIN SNOMED Code(s): 91368130 Comment: - Epigastric tenderness to the abdomen, Hx PUD - Suspect secondary to acute on chronic ETOH pancreatitis, hepatitis, and gastritis - Lipase mildly elevated and AST/ALT appears to be at his baseline - Malaxx improves his symptoms - Stool for occult blood positive, no melena recently - S/P ERCP for CBD stone at [facility], no stone found (was hospitalized 05/12-) - H/H stable, may need a GI consult if significant drop in H/H or evidence of GI bleed - Tolerating a full liquid diet, will advance diet to low fat for lunch - Continue PPI, Carafate, and Malaxx (2) Alcohol abuse Code(s): F10.10 - ALCOHOL ABUSE, UNCOMPLICATED SNOMED Code(s): 86656078 Comment: - WAM score 3-6 - Acute and chronic alcoholism with alcoholic hepatitis and pancreatitis - Patient does not wish have inpatient rehab treatment at this time (3) History of peptic ulcer disease Code(s): Z87.11 - PERSONAL HISTORY OF PEPTIC ULCER DISEASE SNOMED Code(s): 436767174 Comment: - Hemodynamically stable, Positive stool for occult blood - GI consult on hold for now - Continue PPI and Carafate coverage (4) Tobacco abuse Code(s): Z72.0 - TOBACCO USE SNOMED Code(s): 323527218 Comment: - Pt advised to quit smoking. - Nicotine patch and inhaler for cravings (5) Thrombocytopenia Code(s): D69.6 - THROMBOCYTOPENIA, UNSPECIFIED SNOMED Code(s): 371188560 Comment: - Chronic - Suspect secondary to ETOH abuse - Outpatient Oncology follow-up for further work up (6) DVT prophylaxis Code(s): NIU0360 - SNOMED Code(s): 467190889 Comment: - Encourage ambulation and SCDs (7) Full code status Code(s): Z78.9 - OTHER SPECIFIED HEALTH STATUS SNOMED Code(s): 394849292 Status and Disposition: Inpatient. Discharge to home when medically stable and able to tolerate a regular diet, possibly later today
[2018-05-31 12:22] VITALS: BP 135/75
--- NOTE | 2018-06-01 00:09 | DS ---
CC: Dr. Syed Hernandez * DISCHARGE SUMMARY: DATE OF ADMISSION: 05/29/18 DATE OF DISCHARGE: 05/31/18 ATTENDING PHYSICIAN: Dr. Kayli Hsu * (dictated by Karlie De Jesus NP). PRIMARY CARE PROVIDER: Dr. Syed Hernandez. PRIMARY DIAGNOSES: 1. Abdominal pain suspect secondary to alcoholic pancreatitis, alcoholic hepatitis and gastritis. 2. Suspected upper GI bleed secondary to peptic ulcer disease. 3. Alcohol abuse. SECONDARY DIAGNOSES: 1. Tobacco abuse. 2. Thrombocytopenia. DISCHARGE MEDICATIONS: Continued home medications: 1. Folic acid 1 mg oral daily. 2. Artificial Tears 1 drop to both eyes every 8 hours as needed for dry eyes. 3. Oxycodone 5 mg oral every 6 hours as needed for pain. 4. Zofran 4 mg sublingual every 8 hours as needed for nausea. 5. Magnesium oxide 400 mg oral daily. 6. Librium 25 mg oral daily as needed for alcohol withdrawal. 7. Thiamine 100 mg oral 3 times daily. 8. Protonix 40 mg oral twice daily with meals. 9. Carafate 1 g oral every 6 hours. HISTORY OF PRESENT ILLNESS/HOSPITAL COURSE: Mr. Molina is a 52-year-old male with past medical history significant for alcoholism, tobacco abuse, who presented to the emergency room with complaints of abdominal pain. The patient was recently hospitalized at [facility] for alcoholic pancreatitis and hepatitis. While there from 05/12/18 to 05/18/18, he underwent an ERCP for common bile duct stone and no stone was found. The patient was then discharged and at home, he states that he has not had any medications as he is unable to afford them. The patient reports that he often does not eat because he feels too weak to get to the store for food or to prepare food to eat. The patient states that ultimately when at home, he developed abdominal pain and was scared , so he came to the emergency room. The patient reports staying sober for 1 may be 2 weeks after his last hospital admission. When he developed severe abdominal pain, he went back to drinking to improve the abdominal pain. The patient also reports recent vomiting, sleeping poorly. It is to note the patient is a poor historian and the exact history of events is really unclear. Again, he presented to the emergency room for further evaluation. While in the emergency room, the patient had labs showing an alcohol level of 320, lipase of 120, thrombocytopenia with platelet count of 121, bilirubin 4, AST 206, ALT 58. He had a negative urine drug screen. Hospitalists were asked to evaluate the patient for admission. During the patient's hospitalization, his abdominal pain was suspected to be secondary to alcoholic pancreatitis, alcoholic hepatitis and likely gastritis from his alcoholism. The patient was placed on IV Protonix and Carafate. He was provided with Zofran and Compazine for his nausea. He was tolerating a clear liquid diet. The patient reported having melena that he contributed to not eating. He did have a positive stool occult blood during his stay. I side consulted GI, who recommended continuing the patient on his PPI and Carafate. His LFTs are elevated, but were decreased from his previous admission. His lipase improved during his stay. Initially, the patient was considering assisted living, but on his second day of admission, he was insistent on going home. The patient was encouraged to stop drinking. He stated he had no medications at home. He was provided with a 5-day supply of Carafate and Protonix and he had a 30-day supply sent to his local pharmacy. Mr. Molina is stable for discharge today. Vital signs are as follows: Temperature 98.3, heart rate 89, respiratory rate 16, O2 sat 98% on room air, blood pressure 155/75. DISCHARGE PLAN: Mr. Molina will be discharged to home. Activity as tolerated. He should be on a low-fat diet. He has been asked to stop drinking alcohol. In regards to his abdominal pain, again I think this was secondary to a combination of alcoholic pancreatitis, hepatitis and gastritis. The patient also has known peptic ulcer disease. He has been continued on Protonix 40 mg oral twice daily in addition to Carafate 1 g oral every 6 hours. The patient has been given a 5-day supply of his Carafate and Protonix and been asked to pickle processor the remainder at the pharmacy. In regards to his elevated LFTs, I again suspect this was secondary to his alcoholic hepatitis. I recommend following them outpatient. The patient declines any support with his alcohol abuse. The patient has been asked to return to the emergency room for any chest pain, shortness of breath. He has also been asked to please call Dr. Hernandez's office to set up a followup appointment in the next week. Additionally, he may benefit from getting set up with the [facility]. The patient should return to the emergency room for any chest pain, shortness of breath, increased abdominal pain. This is a summarized report of a complex medical history and hospital stay. For further details, please see the entire medical record. TIME SPENT: Time for this discharge was approximately 50 minutes, greater than half of that was spent with the patient discussing discharge plans and instructions. CONDITION ON DISCHARGE: Stable. Reviewed by CIRA KONG 06/01/18 1135 [id number]/[facility] #: [id number] GABI
== END 2018-05-31 13:50 | disposition home or self-care (01) | DRG 438 ==
LOC: ED 18:38 → MED 05-29 01:45 → OBSVTOIN 05-30 08:05
PROVIDERS: ADMIT Hospitalist; ATTEND Internal Medicine
DX: K85.20 Alcohol induced acute pancreatitis without necrosis or infection (principal); K27.4 Chronic or unspecified peptic ulcer, site unspecified, with hemorrhage; D69.6 Thrombocytopenia, unspecified; K86.0 Alcohol-induced chronic pancreatitis; K70.10 Alcoholic hepatitis without ascites; F10.20 Alcohol dependence, uncomplicated; Y90.8 Blood alcohol level of 240 mg/100 ml or more; K29.20 Alcoholic gastritis without bleeding; F17.210 Nicotine dependence, cigarettes, uncomplicated; Z88.6 Allergy status to analgesic agent; Z88.8 Allergy status to other drugs, medicaments and biological substances; Z79.899 Other long term (current) drug therapy
CPT/HCPCS: 36415; 80048; 80053; 80307; 80320; 82272; 83690; 85014; 85018; 85025; 99284; A9270-GY; G0378; G0480; J0780

== ENCOUNTER 2018-07-04 08:28 | Inpatient (IN) | payer MEDICARE ==
--- NOTE | 2018-07-04 09:01 | ED ---
Complex/Multi-Sys Presentation - HPI Summary HPI Summary: This patient is a 52 year old M presenting to [facility] with a chief complaint of chronic progressive weakness for the past 8 months, increased today with an inability to walk. Patient reports abdominal pain, back pain, SOB, and diarrhea. He states is unsure if there is blood in stool; patient is color blind. Patient has history of liver cirrhosis and pancreatitis due to history of alcoholism. Denies history of DM and lung disease. Reports his last drink was this morning. States reduction in drinking the past few months. - History Of Current Complaint Chief Complaint: EDAbdPain Time Seen by Provider: 07/04/18 08:40 Hx Obtained From: Patient Onset/Duration: Gradual Onset, Worse Since - today, Other - months Timing: Constant Location: Pain At: - abdomen and back Associated Signs And Symptoms: Positive: Weakness, SOB, Diarrhea, Back Pain, Other - Allergies/Home Medications Allergies/Adverse Reactions: Allergies Allergy/AdvReac Type Severity Reaction Status Date / Time No Known Allergies Allergy Verified 07/04/18 10:54 PMH/Surg Hx/FS Hx/Imm Hx Endocrine/Hematology History: Denies: Hx Diabetes Cardiovascular History: Denies: Hx Hypertension GI History: Reports: Hx Cirrhosis, Hx Ulcer History: Denies: Hx Renal Disease Sensory History: Denies: Hx Contacts or Glasses, Hx Legally Blind, Hx Deafness, Hx Hearing Aid Opthamlomology History: Denies: Hx Contacts or Glasses, Hx Legally Blind Psychiatric History: Reports: Hx Anxiety, Hx Depression, Hx Substance Abuse - cocaine, alcohol - Surgical History Surgery Procedure, Year, and Place: cholecystectomy Infectious Disease History: No Infectious Disease History: Denies: Traveled Outside the [place] in Last 30 Days - Family History Known Family History: Positive: Other - Cancer in aunt and 3 cousins. CVA grandmother - Social History Alcohol Use: Daily Alcohol Amount: had decreased to 5-6 daily Hx Substance Use: Yes Substance Use Type: Reports: Cocaine Substance Use Comment - Amount & Last Used: 05/28/18 Hx Tobacco Use: Yes Smoking Status (MU): Heavy Every Day Tobacco Smoker Review of Systems Positive: Shortness Of Breath Positive: Abdominal Pain, Diarrhea Positive: Myalgia - back pain Positive: Weakness All Other Systems Reviewed And Are Negative: Yes Physical Exam - Summary Physical Exam Summary: GENERAL: Patient is an ill-appearing jaundiced male who is lying comfortable in the stretcher. Patient is not in any acute respiratory distress. HEAD AND FACE: Normocephalic EYES: PERRLA, EOMI x 2 scleral icterus EARS: Hearing grossly intact. MOUTH: Oropharynx within normal limits. NECK: Supple, trachea is midline, no adenopathy, no JVD, no carotid bruit. CHEST: Symmetric, no tenderness at palpation LUNGS: Clear to auscultation bilaterally. No wheezing or crackles. CVS: Regular rate and rhythm, S1 and S2 present, no murmurs or gallops appreciated. ABDOMEN: Diffuse tenderness to palpation. Distended abdomen. Bowel sounds are normal. No abdominal abnormal pulsations. EXTREMITIES: Full ROM in all major joints, no edema, no cyanosis or clubbing. NEURO: Alert and oriented x 3. No acute neurological deficits. Speech is normal and follows commands. SKIN: Dry and warm, jaundiced, spider veins over abdomen Triage Information Reviewed: Yes Vital Signs On Initial Exam: Initial Vitals Temp Pulse Resp BP Pulse Ox 98.8 F 100 26 99/64 96 07/04/18 08:36 07/04/18 08:36 07/04/18 08:36 07/04/18 08:36 07/04/18 08:36 Vital Signs Reviewed: Yes Diagnostics - Vital Signs Vital Signs Temp Pulse Resp BP Pulse Ox 07/04/18 08:37 100 25 99/64 97 07/04/18 08:36 98.8 F 100 21 99/64 96 - Laboratory Result Diagrams: 07/05/18 05:11 07/05/18 05:11 Lab Statement: Any lab studies that have been ordered have been reviewed, and results considered in the medical decision making process. - Radiology CXR Radiology Interpretation Completed By: Radiologist - Bibasilar alveolar consolidation concerning for pneumonia. ED Physician has reviewed this report. Complex Multi-Symp Course/Dx Course Of Treatment: 52 year old M presenting to [facility] with a chief complaint of chronic progressive weakness for the past 8 months, increased today with an inability to walk. Patient reports abdominal pain, back pain, SOB, and diarrhea. PMHx liver cirrhosis and pancreatitis due to history of alcoholism. A CXR reveals, "Bibasilar alveolar consolidation concerning for pneumonia." as per radiologist. Bloodwork is remarkable for a sodium of 103, lactic acid of 3.5 , bilirubin of 19.90, and BNP of 135. Patient is given 1L of IV fluids, Lactulose, Fentanyl, and Dextrose. An Abomen/Pelvis CT is ordered, prior to results Dr. Angulo agrees to admit to the ICU. I discussed results with patient. The patient agrees with this plan. 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 Time Discussed With Above Provider: 11:02 Instructed by Provider To: Admit As Inpatient - MD will see in ED - Critical Care Time Critical Care Time: 30-74 min - 60 minutes Discharge - Sign-Out/Discharge Documenting (check all that apply): Patient Departure - admit - Discharge Plan Condition: Fair Disposition: ADMITTED TO [facility] - Billing Disposition and Condition Condition: FAIR Disposition: Admitted to [facility] - Attestation Statements Document Initiated by Scribe: Yes Documenting Scribe: Patricia Carmen Provider For Whom Scribe is Documenting (Include Credential): Sherice Deng MD Scribe Attestation: IPatricia, scribed for Sherice Deng MD on 07/05/18 at 1119. Scribe Documentation Reviewed: Yes Provider Attestation: The documentation as recorded by the scribePatricia accurately reflects the service I personally performed and the decisions made by , Sherice Deng MD
[2018-07-04 10:15] LABS: ABS Basophils 0.1 10^3/ul (0-0.2); ABS Eosinophils 0 10^3/ul (0-0.6); ABS Lymphocytes 1.1 10^3/ul (1.0-4.8); ABS Monocytes 0.5 10^3/ul (0-0.8); ABS Neutrophils 5.8 10^3/ul (1.5-7.7); ABS Nucleated RBC 0 10^3/ul; Eosinophil % 0.5 % (0-6); Hematocrit 34 % (42-52); Lymphocyte % 14.5 % (25-47); Mean Corpuscular HGB Conc 36 g/dl (31-36); Mean Corpuscular Hemoglobin 36 pg (27-31); Mean Corpuscular Volume 102 fL (80-94); Mean Platelet Volume 9.4 um3 (7.4-10.4); Nucleated Red Blood Cells % 0.2; Platelet Count 80 10^3/ul (150-450); Red Cell Distribution Width 16 % (10.5-15); White Blood Count 7.4 10^3/ul (3.5-10.8)
[2018-07-04 10:18] LABS: INR 2.29 (0.77-1.02)
[2018-07-04 10:33] LABS: EGFR Non-African American 75.5 (>60)
[2018-07-04] MEDS ORDERED: Dextrose 50% Syringe 50 ML* 25 GM/50 ML SYRINGE IV PUSH ONE (10:35)
[2018-07-04] MEDS ORDERED: NS 0.9% 1000 ML* 1,000 ML IV ONE (10:58)
[2018-07-04] MEDS ORDERED: fentaNYL* 50 MCG/ML 2 ML VIAL (100 MCG VIAL) IV SLOW PU ONE (11:03)
--- NOTE | 2018-07-04 11:05 | RAD ---
Indication: Cough, shortness of breath, history of tobacco use. Comparison: April 29, 2018 Technique: Upright AP 0945 hours Report: Suboptimal inspiration compared with the prior exam. Bibasilar alveolar consolidation appears greater than would be expected for atelectasis given relative mild volume loss. Negative for pleural effusion or pneumothorax. The heart, pulmonary vasculature, and mediastinal contours are unremarkable. IMPRESSION: #. Bibasilar alveolar consolidation concerning for pneumonia.
[2018-07-04] MEDS ORDERED: fentaNYL* 50 MCG/ML 2 ML VIAL (100 MCG VIAL) ONE (11:15)
[2018-07-04] MEDS ORDERED: Iodixanol* (CONTRAST) 320 MG/ML 100 ML SDV IV ONE (11:25)
--- NOTE | 2018-07-04 12:45 | RAD ---
INDICATION: Abdominal and back pain. History of pancreatitis. Post cholecystectomy. Liver failure. Hyponatremia. COMPARISON: April 28, 2018 CT. TECHNIQUE: Multidetector CT images were obtained from the lung bases to the ischial tuberosities with 99 mL Visipaque 320 IV and oral contrast. Multiplanar reformation. REPORT: VISUALIZED INFERIOR THORAX: Mild bibasilar subsegmental atelectasis. LIVER / GALLBLADDER / PANCREAS / SPLEEN: Post cholecystectomy. Negative for biliary dilatation. 22 cm cephalocaudal liver is markedly decreased in density consistent with hepatosteatosis. No suspicious focal liver lesions evident. Chronic macroscopic calcification at the head and uncinate process of the pancreas corresponding with history of chronic pancreatitis. Unremarkable spleen. ALIMENTARY TRACT: Small hiatal hernia. Mural thickening and perienteric inflammatory change at the level of the second through fourth segments of the duodenum. Mild diffuse mural thickening of the jejunum and ilium. Mild mural thickening at the RIGHT colon. No loculated retroperitoneal or intraperitoneal abscess collection evident. Negative for retroperitoneal or free intraperitoneal gas. Moderately large volume of diffuse ascites. MESENTERIC: Mild mesenteric edema. ADRENAL / GENITOURINARY: Normal adrenal glands. Symmetric nephrograms and pyelograms. Negative for hydronephrosis or focal renal lesions. Unremarkable ureters and distended urinary bladder. Symmetric seminal vesicles. Coarse calcifications at the prostate. RETROPERITONEAL: Negative for lymphadenopathy. VASCULAR: Physiologic distention of the IVC. BONES: Negative for suspicious osseous lesions. SOFT TISSUE: Dependent subcutaneous edema. IMPRESSION: #. Stigmata of chronic pancreatitis. No compelling evidence for acute pancreatitis. #. Hepatomegaly and hepatosteatosis. #. No conspicuous focal liver lesions evident. #. Nonspecific diffuse mural thickening of the small bowel most prominent at the duodenum as well as the RIGHT colon. Given additional findings of moderately large volume of ascites and subcutaneous edema at the bowel wall thickening is most likely secondary to anasarca possibly related to hepatic failure/low-protein state or hyponatremia. Diffuse gastroenteritis would also be possible.
[2018-07-04] MEDS: Ketorolac INJ* 30 MG/ML 1 ML VIAL IV PUSH PRN (12:59)
[2018-07-04] MEDS ORDERED: Furosemide IV* 10 MG/ML VIAL (40 MG) IV ONE (13:00)
[2018-07-04 13:06] LABS: Urine Appearance Cloudy; Urine Blood 2+ (Negative); Urine Color Amber; Urine Ketones Trace (Negative); Urine Protein 1+(30 mg/dL) (Negative); Urine Red Blood Cell Absent (Absent); Urine Specific Gravity 1.033 (1.010-1.030); Urine Urobilinogen Positive (Negative); Urine White Blood Cell 2+(11-20/hpf) (Absent)
[2018-07-04] MEDS: Spironolactone TAB* 25 MG PO SCH (13:43)
[2018-07-04] MEDS: CMC:Midodrine (NF) 5 MG TAB PO SCH ×2 (13:44→22:35)
[2018-07-04] MEDS ORDERED: Ondansetron INJ* 2 MG/ML VIAL IV PRN (14:12)
--- NOTE | 2018-07-04 15:10 | HP ---
ADMISSION HISTORY AND PHYSICAL: DATE OF ADMISSION: 07/04/18 REASON FOR ADMISSION: Cirrhosis of the liver with severe hyponatremia. HISTORY OF PRESENT ILLNESS: This patient is a 52-year-old male with a history of alcoholic cirrhosis, who was in this hospital 1 month ago with acute pancreatitis and alcoholic hepatitis, and now returns because of complaints of lethargy and weakness - was found to have a sodium of 103, bilirubin of 20, lactic acid of 3.5, and a markedly distended abdomen. The patient is being admitted with a presumptive diagnosis of end-stage liver disease and asymptomatic hyponatremia. The patient claims his last alcoholic drink was yesterday. OUTPATIENT MEDICATIONS: Discharge meds on 05/31/18 include: 1. Thiamine 100 mg daily. 2. Omeprazole 20 mg daily. 3. Folic acid 1 mg daily. However, patient claims he is taking no meds. ALLERGIES: There is no history of drug allergy. SOCIAL HISTORY: The patient lives alone and drinks about a case of beer a day and smokes 1 pack of cigarettes per day. No other drug ingection. Also, no close relatives or healthcare proxy. REVIEW OF SYSTEMS: Noncontributory. PHYSICAL EXAMINATION GENERAL: Chronically ill-appearing male who was alert, oriented and appeared comfortable. VITAL SIGNS: Temp 99.2 (temporal), heart rate 93, respirations 16, O2 sat 97% on 2 L nasal cannula, blood pressure 103/60. HEENT: Scleral icterus. THORAX: Lungs clear. CARDIAC: No murmurs. ABDOMEN: Markedly distended. No bowel sounds EXTREMITIES: 1+ nonpitting edema in both lower extremities with multiple bruises in both lower extremities. NEUROLOGIC: No asterixis. DIAGNOSTIC STUDIES/LAB DATA: Admission laboratory data was significant for a sodium of 103, a bicarb of 19, lactic acid 3.5, total bilirubin 19.9, alkaline phosphatase 388, AST 241, ALT 63, ammonia level 96, C-reactive protein 23.7, albumin 2.4, amylase 75, lipase 112, INR 2.29, PTT 60.4, and platelet count 80, 000. Chest x-ray showed normal size heart and clear lung magdaleno. IMPRESSION: This patient has end-stage liver disease complicated by severe hyponatremia, thrombocytopenia, ascites, and lactic acidosis, but (surprisingly ) there is no hepatic encephalopathy. The hyponatremia is severe but asymptomatic. MANAGEMENT PLAN: The hyponatremia will be managed by fluid restriction and midodrine (5 mg TID). The ascites will be managed with spironolactone (100 mg daily) and intermittent diuresis with Lasix. The patient is afebrile and white count is normal, so spontaneous bacterial peritonitis is not a consideration. Prognosis here is grave. I have spoken to the patient about end-of-life decisions and he has requested that we do everything for a cardiac arrest. There are no relatives to notify in his case. CRITICAL CARE TIME: 60 minutes. [id number]/[facility] #: [id number] [facility] HOSPITALCezar
[2018-07-04] MEDS: HYDROmorphone INJ* 0.5 MG/0.5 ML SYRINGE IV SLOW PU PRN ×2 (15:43→22:36)
[2018-07-05] MEDS: HYDROmorphone INJ* 0.5 MG/0.5 ML SYRINGE IV SLOW PU PRN (05:00)
[2018-07-05 05:36] LABS: Hematocrit 32 % (42-52); Hemoglobin 11.4 g/dl (14.0-18.0); Mean Corpuscular HGB Conc 36 g/dl (31-36); Mean Corpuscular Hemoglobin 37 pg (27-31); Mean Corpuscular Volume 102 fL (80-94); Mean Platelet Volume 9.7 um3 (7.4-10.4); Platelet Count 73 10^3/ul (150-450); Red Blood Count 3.12 10^6/ul (4.00-5.40); Red Cell Distribution Width 16 % (10.5-15); White Blood Count 7.5 10^3/ul (3.5-10.8)
[2018-07-05 05:43] LABS: EGFR Non-African American 64.6 (>60)
[2018-07-05] MEDS: Spironolactone TAB* 25 MG PO SCH (09:41)
[2018-07-05] MEDS: CMC:Midodrine (NF) 5 MG TAB PO SCH ×3 (09:41→20:46)
[2018-07-05] MEDS: Ketorolac INJ* 30 MG/ML 1 ML VIAL IV PUSH PRN (15:07)
[2018-07-05] MEDS: HYDROmorphone INJ1* 1 MG/ML SYRINGE IV SLOW PU PRN (18:54)
--- NOTE | 2018-07-05 19:19 | PN ---
Date of Service: 07/05/18 Critical Care Services: No new problems today - mental status still OK and no signs of withdrawal. Vital Signs: Temp Pulse Resp BP SpO2 FiO2 97.7 F 98 14 90/56 95 Physical Exam: Gen:Awake Lungs:Clear Abdomen:Distended Extremities:2+edema. No tremors. No asterixis Fluid Balance (Past 24 Hours): 07/05/18 06:59 Intake Total 1000 Output Total 540 Balance 460 Weight 181 lb Intake: Oral 1000 Output: Lee 540 Other: Date of Last Bowel 07/04/2018 Movement # Bowel Movements 1 Estimated Stool Amount Medium Labs: 07/05/18 07/05/18 07/05/18 05:11 05:11 05:11 WBC 7.5 RBC 3.12 L Hgb 11.4 L Hct 32 L MCV 102 H MCH 37 H MCHC 36 RDW 16 H Plt Count 73 L MPV 9.7 Sodium 104 L* Potassium 4.2 Chloride 76 L Carbon Dioxide 22 Anion Gap 6 BUN 13 Creatinine 1.18 H Glucose 86 Lactic Acid Calcium 7.2 L Total Bilirubin 19.70 H* AST 222 ALT 60 Alkaline Phosphatase 361 Ammonia 104 Total Protein 5.5 L Albumin 2.2 L Globulin 3.3 Albumin/Globulin Ratio 0.7 L 07/05/18 05:11 WBC RBC Hgb Hct MCV MCH MCHC RDW Plt Count MPV Sodium Potassium Chloride Carbon Dioxide Anion Gap BUN Creatinine Est GFR ( Amer) Est GFR (Non-Af Amer) BUN/Creatinine Ratio Glucose Lactic Acid 1.3 Calcium Total Bilirubin AST ALT Alkaline Phosphatase Ammonia Total Protein Albumin Globulin Albumin/Globulin Ratio Studies: None Nutrition: Regular diet Impression: 1. Liver failure - ? [id number] - no evidence of hepatic encephalopathy ( despite ammonia of 100) 2. ? alcoholic hepatitis. 3. Severe hyponatremia - asymptomatic (on midodrine) Plan: 1. General supportive care. 2. Watch for signs of withdrawal. 3. Monitor ammonia level 4. GI consult tomorrow.
[2018-07-06] MEDS: Ketorolac INJ* 30 MG/ML 1 ML VIAL IV PUSH PRN (00:16)
[2018-07-06] MEDS ORDERED: Albumin Human 5%* 12.5 GM/250 ML BTL IV ONE (01:43)
[2018-07-06] MEDS ORDERED: NS 0.9% 500 ML* 500 ML IV ONE (02:51)
[2018-07-06] MEDS: HYDROmorphone INJ1* 1 MG/ML SYRINGE IV SLOW PU PRN ×3 (03:46→20:25)
[2018-07-06 05:42] LABS: EGFR Non-African American 54.4 (>60)
[2018-07-06] MEDS: CMC:Midodrine (NF) 5 MG TAB PO SCH ×3 (08:10→22:29)
[2018-07-06] MEDS: Spironolactone TAB* 25 MG PO SCH (08:11)
[2018-07-06] MEDS: RiFAXimin* 550 MG TAB PO SCH ×2 (11:48→22:29)
[2018-07-06] MEDS: Ketorolac INJ* 15 MG/ML 1 ML VIAL IV PUSH PRN ×2 (11:48→18:20)
[2018-07-06] MEDS: Pancrelipase CAP* 5,000 UNITS CAP PO SCH ×2 (12:56→18:06)
[2018-07-06] MEDS: Lactulose* 15 ML UDC PO SCH ×3 (14:06→22:29)
--- NOTE | 2018-07-06 19:29 | PN ---
Date of Service: 07/06/18 Critical Care Services: Increasing signs of hepatic encephalopathy (Rifaximin and lactulose have been started). Attempt to contact next of kin have been unsuccessful. Vital Signs: Temp Pulse Resp BP SpO2 FiO2 98.4 F 101 19 83/53 90 Physical Exam: Gen:Somnolent but arousable. Responds to commands, but slowly Lungs:Clear Cardiac: reg rhythm Abdomen: Distended Extremities:+asterixis Fluid Balance (Past 24 Hours): 07/05/18 07/06/18 06:59 06:59 Intake Total 1000 1010 Output Total 540 354 Balance 460 656 Weight 181 lb 178 lb Intake: IV Fluids 500 NS (0.9%) 500 IVPB 250 Albumin 250 Oral 1000 260 Output: Lee 540 354 Other: Date of Last Bowel 07/04/2018 Movement # Bowel Movements 1 Estimated Stool Amount Medium Labs: 07/06/18 07/06/18 07/06/18 05:01 05:01 05:01 Sodium 107 L* Potassium 4.2 Chloride 80 L Carbon Dioxide 22 Anion Gap 5 BUN 17 Creatinine 1.37 H Glucose 72 Lactic Acid 1.1 Calcium 6.9 L Total Bilirubin 18.50 AST 185 H ALT 50 Alkaline Phosphatase 285 H Ammonia 87 Total Protein 4.7 L Albumin 2.0 L Globulin 2.7 Albumin/Globulin Ratio 0.7 L Studies: None Nutrition: Oral diet - intake poor Impression: End-stage liver disease. Prognosis very poor. Patient is not a transplant candidate, yet he insists on intubation and CPR despite the futile nature of this case. Plan: Supportive care.
[2018-07-06] MEDS ORDERED: HYDROmorphone INJ1* 1 MG/ML SYRINGE IV ONE (20:37)
--- NOTE | 2018-07-06 21:21 | CONS ---
CC: Dr. Hernandez * CONSULTATION REPORT: DATE OF CONSULT: 07/06/18 REQUESTING PHYSICIAN: Dr. Angulo. INDICATION: Cirrhosis. NARRATIVE: Mr. Molina is a 52-year-old gentleman with alcoholic cirrhosis, also has a history of pancreatitis who presented to the emergency room with lethargy and weakness. Initial labs revealed a sodium of 103 and he was admitted to the intensive care unit. I am seeing the patient at approximately 4 p.m. on Friday afternoon. Unfortunately he really is not able to answer many of my questions. He is experiencing encephalopathy. He denies any abdominal pain. He knows he is at [facility], but cannot tell me what date or month it is. He states that he has been drinking recently as of just 2 days ago. MEDICATIONS UPON ADMISSION: Include, 1. Folic acid. 2. Omeprazole. 3. Thiamine. ALLERGIES: None. SOCIAL HISTORY: Continues to smoke. He drinks at least a case of beer per day. REVIEW OF SYSTEMS: Unable to obtain from the patient. PHYSICAL EXAM: Temperature is 97.7, blood pressure is 74/40, pulse is 95. General: Chronically ill, disheveled male, appears older than stated age, oriented only to place, not to person or time. HEENT: He has scleral icterus. Dentition is poor. Neck is supple, trachea is midline. Heart: Regular rate and rhythm, tachycardiac. Lungs: Clear to auscultation bilaterally. No wheezes , rales or rhonchi. Abdomen: Obese and distended. Positive bowel sounds. Dull flanks. No rebound. No guarding. Skin: Jaundiced. Neuro: Positive asterixis. DIAGNOSTIC STUDIES/LAB DATA: Of note, his white count is 7.5, his hemoglobin is 11.4, platelets of 73, INR is 2.29. Sodium has come up from 104 to 107. His BUN is 17, creatinine is 1.37. Total bilirubin has gone from 19.7 to 18.5. AST is 185, ALT is 50, alk-phos is 283. His ammonia has come down from 104 to 87. ASSESSMENT AND PLAN: This is a 52-year-old gentleman with alcoholic cirrhosis. The patient has multiple issues going on at this point. 1. Hyponatremia. He is slowly coming up. I agree with the very slow increase. He is on midodrine for this. He will need free water restriction. 2. Encephalopathy: The patient does have moderate degree of encephalopathy. He should continue with the lactulose. 3. Alcohol abuse: He must stop his alcohol. Unfortunately his MELD score is 34 at this point. His mortality rate is greatly increased. Unfortunately he does not qualify for liver at this point given his recent alcohol abuse. I also agree with Xifaxan for his encephalopathy too. 4. As far as ascites goes, he does have a CT abdomen and pelvis from just 2 days ago, which does show ascites. Unfortunately his renal function is slowing down. We may need to consider a symptomatic paracentesis as I would be concerned about starting him on diuretics. Unfortunately he is in very guarded condition; however, we will still continue to follow along very closely. [id number]/[facility] #: [id number] GABI
[2018-07-06] MEDS: Norepinephrine VIAL* 4 MG in NS 0.9% 250 ML* 246 ML IV SCH (21:35)
[2018-07-07] MEDS: Norepinephrine VIAL* 4 MG in NS 0.9% 250 ML* 246 ML IV SCH ×5 (03:26→23:59)
[2018-07-07 06:04] LABS: EGFR Non-African American 54.8 (>60)
[2018-07-07] MEDS ORDERED: Norepinephrine VIAL* 1 MG/ML 4 ML VIAL ONE (07:43)
[2018-07-07] MEDS ORDERED: Norepinephrine VIAL* 4 MG in NS 0.9% 250 ML* 246 ML IV SCH (08:00)
--- NOTE | 2018-07-07 08:12 | RAD ---
INDICATION: Central line placement COMPARISON: July 04, 2018 TECHNIQUE: An AP portable view obtained at 2111 hours is submitted. FINDINGS: Bones/Soft Tissues: There are no acute bony findings. There is interval placement of a right IJ catheter which terminates near the superior vena cava/right atrial junction. Cardiomediastinal: The cardiomediastinal silhouette is normal. Lungs: There are small bilateral areas of linear parenchymal change most consistent with atelectasis. Pleura: There are no pleural effusions. Other: None IMPRESSION: RIGHT AJ CATHETER POSITIONED DESCRIBED. BIBASILAR LINEAR CHANGE MOST CONSISTENT WITH ATELECTASIS.
[2018-07-07] MEDS: Lactulose* 15 ML UDC PO SCH ×4 (08:21→20:30)
[2018-07-07] MEDS: CMC:Midodrine (NF) 5 MG TAB PO SCH ×3 (08:22→20:30)
[2018-07-07] MEDS: RiFAXimin* 550 MG TAB PO SCH ×2 (08:22→20:30)
[2018-07-07] MEDS: Pancrelipase CAP* 5,000 UNITS CAP PO SCH ×3 (08:22→16:54)
--- NOTE | 2018-07-07 10:15 | PRO ---
PROCEDURE NOTE: DATE OF PROCEDURE: 07/06/18 - ROOM #ICU-08 PROCEDURE PERFORMED: Insertion of a central venous catheter. DESCRIPTION OF PROCEDURE: The patient is a 52-year-old male with end-stage cirrhosis of the liver who developed hypotension and requires vasopressor therapy and a 7.5-Malay triple lumen catheter was inserted in the internal jugular vein under ultrasound guidance without difficulty and a chest x-ray was ordered postprocedure to determine placement of a catheter tip. The patient tolerated the procedure well and there were no adverse consequences. [id number]/[facility] #: [id number] [facility]
[2018-07-07] MEDS ORDERED: NS 0.9% 1000 ML* 1,000 ML IV SCH (13:15)
[2018-07-07] MEDS ORDERED: NS 0.9% 500 ML* 500 ML IV ONE (13:42)
--- NOTE | 2018-07-07 13:55 | PN ---
Progress Note - Progress Note Date of Service: 07/07/18 Note: Progress Note -- Critical Care 24 hour events/significant events: -awakens, doesnt want to answer questions - on levophed 12, no fever or wbc elevation -making urine -taking po lactulose and rifaxamin -loose bowel Tele: nsr Vitals: Vital Signs Temp 98.1 F 07/07/18 11:53 Pulse 206 07/07/18 13:30 Resp 15 07/07/18 13:30 BP 84/45 07/07/18 13:30 Pulse Ox 68 07/07/18 13:30 Intake & Output 07/06/18 07/07/18 07/07/18 18:59 06:59 18:59 Intake Total 270 298 50 Output Total 129 309 220 Balance 141 -11 -170 Weight 81.2 kg Intake: Medicated IV 298 CC - Norepinephrine/ 298 Levophed Oral 270 50 Output: Lee 129 309 220 O2/Vent: NC Infusions: levophed Medications: Folic Acid (Folvite Tab*) 1 mg PO DAILY [facility] Hydromorphone HCl (Dilaudid Inj1s*) 1 mg IV SLOW PU Q4H PRN PRN Reason: PAIN Last Admin: 07/06/18 20:25 Dose: 1 mg Norepinephrine Bitartrate 4 mg (/ Sodium Chloride) 250 mls @ 18.75 mls/hr IV Q4H [facility]; Protocol Last Admin: 07/07/18 13:01 Dose: 45 mls/hr Sodium Chloride (Ns 0.9% 1000 Ml*) 1,000 mls @ 75 mls/hr IV PER RATE [facility] Ketorolac Tromethamine (Toradol Inj*) 15 mg IV PUSH Q6H PRN PRN Reason: PAIN Stop: 07/11/18 11:18 Last Admin: 07/06/18 18:20 Dose: 15 mg Lactulose (Lactulose*) 15 ml PO QID [facility] Last Admin: 07/07/18 08:21 Dose: 15 ml Midodrine (Midodrine (Nf)) 10 mg PO TID [facility]; Protocol Last Admin: 07/07/18 08:22 Dose: 10 mg Multivitamins/Minerals (Theragran/Minerals Tab*) 1 tab PO DAILY [facility] Ondansetron HCl (Zofran Inj*) 4 mg IV Q6H PRN PRN Reason: NAUSEA Pancrelipase (Zenpep Delayed Cap*) 5,000 units PO AC [facility] Last Admin: 07/07/18 08:22 Dose: 5,000 units Rifaximin (Xifaxan*) 550 mg PO BID [facility] Last Admin: 07/07/18 08:22 Dose: 550 mg Thiamine HCl (Vitamin B1 Iv*) 100 mg IV DAILY [facility] Physical Exam: General: awake, alert, no distress, no diaphoresis Head: normocephalic, atraumatic HEENT: no pallor, ++ icterus, dry mucous membranes Neck: soft, supple, no jvd, no stridor CVS: normal rate, regular, no murmur Resp: bilateral air entry, no rhales, no wheeze, no rhonchi, no acc muscle use Abdomen: soft, mild tendernes, +distended, bowel sounds present Ext: pulses+, warm, no edema Skin: intact Neuro: awakens, alert, orientedx3, moving all extremities, no gross focal deficit Labs: Laboratory Results - last 24 hr 07/07/18 07/07/18 07/07/18 05:37 05:37 06:30 Sodium 110 L* Potassium 4.6 Chloride 82 L Carbon Dioxide 23 Anion Gap 5 BUN 20 Creatinine 1.36 H Est GFR ( Amer) 66.3 Est GFR (Non-Af Amer) 54.8 BUN/Creatinine Ratio 14.7 Glucose 65 L POC Glucose (mg/dL) 87 Calcium 7.5 L Total Bilirubin 20.80 H* D AST 189 H ALT 53 H Alkaline Phosphatase 307 H Ammonia 124 H Total Protein 4.8 L Albumin 2.0 L Globulin 2.8 Albumin/Globulin Ratio 0.7 L 07/07/18 07/07/18 08:18 11:58 Sodium Potassium Chloride Carbon Dioxide Anion Gap BUN Creatinine Est GFR ( Amer) Est GFR (Non-Af Amer) BUN/Creatinine Ratio Glucose POC Glucose (mg/dL) 99 99 Calcium Total Bilirubin AST ALT Alkaline Phosphatase Ammonia Total Protein Albumin Globulin Albumin/Globulin Ratio Imaging: - Assessment: 52y M pmhx of Alcoholic Liver cirrhosis, recurrent pancreatitis in past, active drinker, substance abuse with cocaine, active tobacco use; comes in for increasing weakness/fatigue for months. Found to have severe hyponatremia , elevated ammonia, suspected decompensated liver cirrhosis. -Acute on chronic decompensated liver cirrhosis -Hepatic encephalopathy -ASHLEY -Hyponatremia -hyperbilirubinemia -coagulopathy -Shock Plan: Neuro- awakens, no distress. no sedation. cont lactulose/rifaxamin for hepatic encephalopathy. check ammonia level daily. no signs of agitation or alcohol withdrawal. asp prec. cotn thiamine/folic acid. CVS- on levophed now. cont midodrine 10mg tid. afebrile, wbc normal. volume depletion? start NS infusion 75cc/hr. bolus NS 500cc. reassess. nontoxic appearing. Resp- on NC, no distress. wean down as tolerated. ID- afebrile. check wbc. unclear source. on levophed. abd mildly tender. IVF bolus, will have to consider abd paracentesis if he allows. GI- decompensated cirrhosis, cont lactulose/rifaxamin. IV albumin now. IVF NS. able to take po. making loose bowel movements. check IF score, if sepsis ruled out can trial prednisolone for possible alcoholic hepatitis tx also. Renal- Cr 1.3, ASHLEY. Low NA, slightly higher than before now. Chloride low. ascites+. Start NS 75cc/hr. maintain perfusion pressure. Heme- hg stable, plt okay. no bleeding. elevated INR, check INR, coagulopathy may be hepatic disease. SCDs Endo- fingerstick as needed. Musculsk- pressure ulcer prophylaxis. Bedrest. Wounds- none Nutrition- mechanical soft DVT prophylaxis: scds; no chemical due to coagulopathy GI prophylaxis: ppi Central Line: no Arterial Line: no Lee Cathetor: no Disposition: icu Code Status: full code progressive liver disease; patietn has stated prior he wants everything done. unclear what his expectations are, in setting of active alcohol abuse. need to further help in goals of care with family since they have been contacted. Total Critical Care time is 35 minutes, excluding procedures/teaching Elmer Perdomo MD Tobacco Shaker (Electronically Signed)
[2018-07-07] MEDS ORDERED: Folic Acid TAB* 1 MG PO SCH (14:00)
[2018-07-07] MEDS ORDERED: Thiamine IV* 100 MG/ML 2 ML VIAL IV SCH (14:00)
[2018-07-07] MEDS: Multivitamins/Minerals TAB PO SCH (14:35)
[2018-07-07 14:40] LABS: Hematocrit 36 % (42-52); Hemoglobin 12.3 g/dl (14.0-18.0); Mean Corpuscular HGB Conc 35 g/dl (31-36); Mean Corpuscular Hemoglobin 36 pg (27-31); Mean Corpuscular Volume 103 fL (80-94); Mean Platelet Volume 8.7 um3 (7.4-10.4); Platelet Count 49 10^3/ul (150-450); Red Blood Count 3.47 10^6/ul (4.00-5.40); Red Cell Distribution Width 17 % (10.5-15); White Blood Count 5.3 10^3/ul (3.5-10.8)
[2018-07-07 14:42] LABS: INR 2.99 (0.77-1.02)
[2018-07-07] MEDS: Ketorolac INJ* 15 MG/ML 1 ML VIAL IV PUSH PRN (20:30)
[2018-07-07] MEDS: HYDROmorphone INJ1* 1 MG/ML SYRINGE IV SLOW PU PRN (20:47)
[2018-07-08] MEDS: HYDROmorphone INJ1* 1 MG/ML SYRINGE IV SLOW PU PRN (00:48)
[2018-07-08] MEDS ORDERED: Thiamine IV* 100 MG/ML 2 ML VIAL IM ONE (03:04)
[2018-07-08] MEDS ORDERED: LORazepam INJ* 2 MG/ML 1 ML VIAL IV PUSH ONE (03:11)
[2018-07-08] MEDS: Norepinephrine VIAL* 4 MG in NS 0.9% 250 ML* 246 ML IV SCH (04:41)
[2018-07-08 05:09] LABS: Hematocrit 29 % (42-52); Hemoglobin 10.4 g/dl (14.0-18.0); INR 2.97 (0.77-1.02); Mean Corpuscular HGB Conc 36 g/dl (31-36); Mean Corpuscular Hemoglobin 37 pg (27-31); Mean Corpuscular Volume 102 fL (80-94); Red Blood Count 2.84 10^6/ul (4.00-5.40); Red Cell Distribution Width 17 % (10.5-15); White Blood Count 8.2 10^3/ul (3.5-10.8)
[2018-07-08 05:23] LABS: EGFR Non-African American 57.2 (>60)
[2018-07-08 05:39] LABS: Platelet Count 56 10^3/ul (150-450)
[2018-07-08] MEDS: Omeprazole CAP* 20 MG PO SCH (08:36)
[2018-07-08] MEDS: Multivitamins/Minerals TAB PO SCH ×2 (08:36→08:39)
[2018-07-08] MEDS: RiFAXimin* 550 MG TAB PO SCH ×2 (08:36→22:04)
[2018-07-08] MEDS: CMC:Midodrine (NF) 5 MG TAB PO SCH ×3 (08:37→22:04)
[2018-07-08] MEDS: Folic Acid TAB* 1 MG PO SCH (08:37)
[2018-07-08] MEDS: Pancrelipase CAP* 5,000 UNITS CAP PO SCH ×3 (08:37→17:13)
[2018-07-08] MEDS: Lactulose* 15 ML UDC PO SCH ×4 (08:44→22:04)
[2018-07-08] MEDS ORDERED: Thiamine TAB* 100 MG TAB PO SCH (09:00)
[2018-07-08] MEDS ORDERED: Norepinephrine VIAL* 1 MG/ML 4 ML VIAL ONE (09:24)
[2018-07-08] MEDS: Norepinephrine VIAL* 8 MG in NS 0.9% 500 ML* 492 ML IV SCH ×3 (09:28→21:57)
[2018-07-08] MEDS: NS 0.9% 1000 ML* 1,000 ML IV SCH ×2 (09:35→19:30)
[2018-07-08] MEDS: Thiamine IV* 100 MG in NS 0.9% 100 ML* 100 ML IV SCH (09:48)
--- NOTE | 2018-07-08 10:50 | PN ---
Progress Note - Progress Note Date of Service: 07/08/18 Note: Progress Note -- Critical Care 24 hour events/significant events: -awakens, lethargic at times. yesterday family came, more alert. confused at times though. -afebrile. remains on levophed, higher dose -less urine output -no complaints by patient Tele: nsr Vitals: Vital Signs Temp 98.8 F 07/08/18 07:53 Pulse 111 07/08/18 10:30 Resp 14 07/08/18 10:30 BP 82/51 07/08/18 10:30 Pulse Ox 94 07/08/18 10:30 Intake & Output 07/07/18 07/08/18 07/08/18 18:59 06:59 18:59 Intake Total 713 1540 Output Total 450 325 9 Balance 263 1215 -9 Weight 84.1 kg Intake: IV Fluids 215 711 NS (0.9%) 215 711 Medicated IV 428 779 CC - Norepinephrine/ 428 779 Levophed Oral 70 50 Output: Lee 450 325 9 Other: Date of Last Bowel 07/07/18 Movement # Bowel Movements 1 Estimated Stool Amount Small O2/Vent: NC Infusions: levophed 20 Medications: Folic Acid (Folvite Tab*) 1 mg PO DAILY [facility] Last Admin: 07/08/18 08:37 Dose: 1 mg Hydromorphone HCl (Dilaudid Inj1s*) 1 mg IV SLOW PU Q4H PRN PRN Reason: PAIN Last Admin: 07/08/18 00:48 Dose: 1 mg Norepinephrine Bitartrate 8 mg (/ Sodium Chloride) 500 mls @ 60 mls/hr IV Q8H [facility]; Protocol Last Admin: 07/08/18 09:28 Dose: 60 mls/hr Thiamine HCl 100 mg/ Sodium (Chloride) 101 mls @ 202 mls/hr IV DAILY [facility] Last Admin: 07/08/18 09:48 Dose: 202 mls/hr Sodium Chloride (Ns 0.9% 1000 Ml*) 1,000 mls @ 100 mls/hr IV PER RATE [facility] Last Admin: 07/08/18 09:35 Dose: 100 mls/hr Ketorolac Tromethamine (Toradol Inj*) 15 mg IV PUSH Q6H PRN PRN Reason: PAIN Stop: 07/11/18 11:18 Last Admin: 07/07/18 20:30 Dose: 15 mg Lactulose (Lactulose*) 15 ml PO QID [facility] Last Admin: 07/08/18 08:44 Dose: 15 ml Midodrine (Midodrine (Nf)) 10 mg PO TID [facility]; Protocol Last Admin: 07/08/18 08:37 Dose: 10 mg Multivitamins/Minerals (Theragran/Minerals Tab*) 1 tab PO DAILY [facility] Last Admin: 07/08/18 08:36 Dose: 1 tab Multivitamins/Minerals (Theragran/Minerals Tab*) 1 tab PO DAILY [facility] Last Admin: 07/08/18 08:39 Dose: 1 tab Omeprazole (Prilosec Cap*) 20 mg PO DAILY@0730 [facility] Last Admin: 07/08/18 08:36 Dose: 20 mg Ondansetron HCl (Zofran Inj*) 4 mg IV Q6H PRN PRN Reason: NAUSEA Pancrelipase (Zenpep Delayed Cap*) 5,000 units PO AC [facility] Last Admin: 07/08/18 08:37 Dose: 5,000 units Rifaximin (Xifaxan*) 550 mg PO BID [facility] Last Admin: 07/08/18 08:36 Dose: 550 mg Thiamine HCl (Vitamin B-1 Tab*) 100 mg PO DAILY [facility] Last Admin: 07/08/18 08:37 Dose: 100 mg Physical Exam: General: awakens, not alert, lethargic intemritently, no distress Head: normocephalic, atraumatic HEENT: no pallor, ++ icterus, dry mucous membranes Neck: soft, supple, no jvd, no stridor CVS: normal rate, regular, no murmur Resp: bilateral air entry, no rhales, no wheeze, no rhonchi, no acc muscle use Abdomen: soft, minimal tendernes, +distended, bowel sounds present Ext: pulses+, warm, no edema Skin: intact Neuro: awakens, lethargic at times, unclear orientation, moving all extremities , no gross focal deficit Labs: Laboratory Results - last 24 hr 07/07/18 07/07/18 07/07/18 11:58 14:10 14:10 WBC 5.3 RBC 3.47 L Hgb 12.3 L Hct 36 L MCV 103 H MCH 36 H MCHC 35 RDW 17 H Plt Count 49 L MPV 8.7 INR (Anticoag Therapy) 2.99 H APTT 82.2 H Sodium Potassium Chloride Carbon Dioxide Anion Gap BUN Creatinine Est GFR ( Amer) Est GFR (Non-Af Amer) BUN/Creatinine Ratio Glucose POC Glucose (mg/dL) 99 Calcium Total Bilirubin Direct Bilirubin Indirect Bilirubin AST ALT Alkaline Phosphatase Ammonia Total Protein Albumin Globulin Albumin/Globulin Ratio 07/07/18 07/07/18 07/08/18 16:23 20:39 04:52 WBC RBC Hgb Hct MCV MCH MCHC RDW Plt Count MPV INR (Anticoag Therapy) APTT Sodium Potassium Chloride Carbon Dioxide Anion Gap BUN Creatinine Est GFR ( Amer) Est GFR (Non-Af Amer) BUN/Creatinine Ratio Glucose POC Glucose (mg/dL) 98 124 H Calcium Total Bilirubin Direct Bilirubin Indirect Bilirubin AST ALT Alkaline Phosphatase Ammonia 89 H Total Protein Albumin Globulin Albumin/Globulin Ratio 07/08/18 07/08/18 07/08/18 04:52 04:52 04:52 WBC 8.2 RBC 2.84 L Hgb 10.4 L Hct 29 L MCV 102 H MCH 37 H MCHC 36 RDW 17 H Plt Count 56 L MPV 9.0 INR (Anticoag Therapy) 2.97 H APTT Sodium 114 L* Potassium 4.5 Chloride 87 L Carbon Dioxide 22 Anion Gap 5 BUN 20 Creatinine 1.31 H Est GFR ( Amer) 69.3 Est GFR (Non-Af Amer) 57.2 BUN/Creatinine Ratio 15.3 Glucose 65 L POC Glucose (mg/dL) Calcium 7.0 L Total Bilirubin 20.50 H* Direct Bilirubin 14.20 H Indirect Bilirubin 6.3 H AST 185 H ALT 53 H Alkaline Phosphatase 283 H Ammonia Total Protein 4.6 L Albumin 1.9 L Globulin 2.7 Albumin/Globulin Ratio 0.7 L 07/08/18 07/08/18 07:56 08:00 WBC RBC Hgb Hct MCV MCH MCHC RDW Plt Count MPV INR (Anticoag Therapy) APTT Sodium Potassium Chloride Carbon Dioxide Anion Gap BUN Creatinine Est GFR ( Amer) Est GFR (Non-Af Amer) BUN/Creatinine Ratio Glucose POC Glucose (mg/dL) 70 75 Calcium Total Bilirubin Direct Bilirubin Indirect Bilirubin AST ALT Alkaline Phosphatase Ammonia Total Protein Albumin Globulin Albumin/Globulin Ratio Imaging: - Assessment: 52y M pmhx of Alcoholic Liver cirrhosis, recurrent pancreatitis in past, active drinker, substance abuse with cocaine, active tobacco use; comes in for increasing weakness/fatigue for months. Found to have severe hyponatremia , elevated ammonia, suspected decompensated liver cirrhosis. -Acute on chronic decompensated liver cirrhosis -Hepatic encephalopathy -ASHLEY -Hyponatremia -hyperbilirubinemia -coagulopathy -Shock Plan: Neuro- awakens, doesnt respond back at times. fluctuating mental status. Ammonia level 89 today. no sedation. cont lactulose/rifaxamin for hepatic encephalopathy. no signs of agitation or alcohol withdrawal. asp prec. cont thiamine/folic acid. CVS- on levophed 20. afebrile, wbc normal. cont midodrine 10mg tid. given NS bolus, cont NS 100cc/hr. Urine output poor. Resp- on NC, no distress. wean down as tolerated. ID- afebrile. wbc normal. unclear source. abd mildly tender. Poor mental status to allow for consent for abd para. GI- decompensated cirrhosis, cont lactulose/rifaxamin. Ammonia decreasing. IVF NS. making loose bowel movements. Unclear if sepsis, holding steroids for acute alc hepatitis. TBili 20. Not able to consent for tap, would need blood products first to perform. Renal- Cr 1.3, ASHLEY. COmponent of volume depletion, maybe some dilutional effect from hepatic disease. Cont NS infusion. Sodium rising. Poor urine output. Heme- hg stable, plt okay. no bleeding. Coagulopathy from liver disease, INR 2.99. FFP needed if going to tap abdomen. SCDs Endo- fingerstick as needed. Musculsk- pressure ulcer prophylaxis. Bedrest. Wounds- none Nutrition- mechanical soft DVT prophylaxis: scds; no chemical due to coagulopathy GI prophylaxis: ppi Central Line: no Arterial Line: no Lee Cathetor: no Disposition: icu Code Status: full code progressive liver disease; family did see patient, daughters, who are Surrogates. Need to discuss with them and reiterate severe condition and declining status. Palliative care and comfort measures would be optimal and in patients best interest. Total Critical Care time is 35 minutes, excluding procedures/teaching Elmer Perdomo MD Bottom Crane Operator (Electronically Signed)
[2018-07-08] MEDS: Ketorolac INJ* 15 MG/ML 1 ML VIAL IV PUSH PRN (11:22)
[2018-07-08] MEDS ORDERED: HYDROmorphone INJ* 0.5 MG/0.5 ML SYRINGE IV SLOW PU PRN (15:00)
[2018-07-08] MEDS ORDERED: Phytonadione IV (Adult)* 10 MG in NS 0.9% 50 ML* 50 ML IV ONE (15:41)
[2018-07-08] MEDS ORDERED: HYDROmorphone INJ1* 1 MG/ML SYRINGE IV SLOW PU PRN (16:00)
[2018-07-08] MEDS ORDERED: Lidocaine 1% INJ* 10 MG/ML 30 ML SDV ONE (20:03)
--- NOTE | 2018-07-08 20:41 | PN ---
Progress Note - Progress Note Date of Service: 07/08/18 Note: Paracentesis Procedure Note Indication: diagnostic, r/o sbp Diagnosis: hepatic encephalopathy, shock Performed by: Dr Elmer Perdomo Consent: Informed ; placed in bedside chart Risk/Benefits of procedure explained [place] Protocol: Time-out was performed and the correct patient and site were verified -Previous imaging and lab work (coags/platelets), medications were reviewed. -Full sterile precautions with Chlorhexidine/full drapes/gowns/gloves were utilized. -Ultrasound was used to visualize the appropriate location on abdomen. -Right lower quadrant of abdomen was marked; SC lidocaine used for local anesthesia. -18 gauge needle was used to enter peritoneal cavity. Entry into peritoneal cavity confirmed with return of serous fluid, and drainage cathetor was passed into space with good return of fluid to check confirmation -Fluid was drained in amount of 3300 cc -Cathetor was removed after drainage and dressing applied to chest wall site -No immediate complications or hemodynamic instability during drainage noted -Specimen/Fluid sent for cell count/cytology/gram stain/culture and other indicated lab analysis Patient tolerated procedure well, no immediate complications noted. EBL - none Elmer Perdomo MD Field Contractor (Electronically Signed)
[2018-07-08] MEDS: ALBUMIN HUMAN IV SCH ×2 (20:52→21:56)
[2018-07-08] MEDS: cefTRIAXone(*) 2 GM in NS 0.9% 100 ML* 100 ML IVPB SCH (21:56)
[2018-07-09] MEDS: HYDROmorphone INJ1* 1 MG/ML SYRINGE IV SLOW PU PRN ×5 (00:56→21:16)
[2018-07-09] MEDS: Norepinephrine VIAL* 8 MG in NS 0.9% 500 ML* 492 ML IV SCH ×5 (03:02→20:39)
[2018-07-09 05:10] LABS: Hematocrit 24 % (42-52); Hemoglobin 8.6 g/dl (14.0-18.0); Mean Corpuscular HGB Conc 35 g/dl (31-36); Mean Corpuscular Hemoglobin 37 pg (27-31); Mean Corpuscular Volume 104 fL (80-94); Red Blood Count 2.34 10^6/ul (4.00-5.40); Red Cell Distribution Width 17 % (10.5-15); White Blood Count 7.7 10^3/ul (3.5-10.8)
[2018-07-09 05:14] LABS: INR 2.24 (0.77-1.02)
[2018-07-09 05:22] LABS: EGFR Non-African American 32.5 (>60)
[2018-07-09 05:27] LABS: Mean Platelet Volume 8.8 um3 (7.4-10.4); Platelet Count 44 10^3/ul (150-450)
[2018-07-09] MEDS: Dextrose 50% Syringe 50 ML* 25 GM/50 ML SYRINGE IV PUSH PRN (05:41)
[2018-07-09] MEDS: NS 0.9% 1000 ML* 1,000 ML IV SCH ×2 (05:45→17:22)
[2018-07-09] MEDS: Folic Acid TAB* 1 MG PO SCH (08:30)
[2018-07-09] MEDS: Multivitamins/Minerals TAB PO SCH (08:30)
[2018-07-09] MEDS: CMC:Midodrine (NF) 5 MG TAB PO SCH ×3 (08:30→21:22)
[2018-07-09] MEDS: RiFAXimin* 550 MG TAB PO SCH ×2 (08:30→21:22)
[2018-07-09] MEDS: Pancrelipase CAP* 5,000 UNITS CAP PO SCH ×3 (08:30→17:29)
[2018-07-09] MEDS: Omeprazole CAP* 20 MG PO SCH (08:30)
[2018-07-09] MEDS: Lactulose* 15 ML UDC PO SCH ×4 (08:30→21:22)
[2018-07-09] MEDS ORDERED: Phytonadione IV (Adult)* 5 MG in NS 0.9% 50 ML* 50 ML IV SCH (09:00)
[2018-07-09] MEDS ORDERED: Vasopressin* 100 UNITS in D5W 250 ML BAG* 245 ML IVPB SCH (09:30)
[2018-07-09] MEDS ORDERED: NS 0.9% 1000 ML* 1,000 ML IV SCH (09:40)
--- NOTE | 2018-07-09 09:48 | PN ---
Progress Note - Progress Note Date of Service: 07/09/18 Note: Progress Note -- Critical Care 24 hour events/significant events: -lethargic but awakens, able to answer simple yes/no at times, but falls back asleep, maintaining airway -on levo, increasing; added vaso pressin now -s/p abd para last night 3300 off -afebrile -hypoglycemic, s/p d50 Tele: nsr, snius tachy Vitals: Vital Signs Temp 97.6 F 07/09/18 08:00 Pulse 107 07/09/18 08:45 Resp 12 07/09/18 09:00 BP 88/55 07/09/18 08:45 Pulse Ox 94 07/09/18 08:45 Intake & Output 07/08/18 07/09/18 07/09/18 18:59 06:59 18:59 Intake Total 1459 3463 Output Total 20 107 20 Balance 1439 3356 -20 Weight 85.3 kg Intake: IV Fluids 745 1958 Albumin 500 NS (0.9%) 745 1458 IVPB 111 100 NS (0.9%) 100 Thiamine 111 Medicated IV 603 1405 CC - Norepinephrine/ 603 1405 Levophed Output: Lee 20 107 20 O2/Vent: NC/RA Infusions: levophed 27, NS 100 Medications: Dextrose (D50w Syringe 50 Ml*) 25 gm IV PUSH .FOR FS < 60 - SS PRN PRN Reason: FS < 60 Last Admin: 07/09/18 05:41 Dose: 25 gm Folic Acid (Folvite Tab*) 1 mg PO DAILY [facility] Last Admin: 07/08/18 08:37 Dose: 1 mg Hydromorphone HCl (Dilaudid Inj1s*) 0.5 mg IV SLOW PU Q4H PRN PRN Reason: PAIN Last Admin: 07/09/18 04:36 Dose: 0.5 mg Thiamine HCl 100 mg/ Sodium (Chloride) 101 mls @ 202 mls/hr IV DAILY [facility] Last Admin: 07/08/18 09:48 Dose: 202 mls/hr Ceftriaxone Sodium 2 gm/ (Sodium Chloride) 100 mls @ 200 mls/hr IVPB Q24H [facility] Last Admin: 07/08/18 21:56 Dose: 200 mls/hr Norepinephrine Bitartrate 8 mg (/ Sodium Chloride) 500 mls @ 101.25 mls/hr IV Q5H [facility]; Protocol Last Admin: 07/09/18 08:56 Dose: 101.25 mls/hr Vasopressin 100 units/ (Dextrose) 250 mls @ 6 mls/hr IVPB .(Initial Rate) [facility] Sodium Chloride (Ns 0.9% 1000 Ml*) 1,000 mls @ 75 mls/hr IV PER RATE [facility] Lactulose (Lactulose*) 15 ml PO QID [facility] Last Admin: 07/08/18 22:04 Dose: Not Given Midodrine (Midodrine (Nf)) 10 mg PO TID [facility]; Protocol Last Admin: 07/08/18 22:04 Dose: Not Given Multivitamins/Minerals (Theragran/Minerals Tab*) 1 tab PO DAILY [facility] Last Admin: 07/08/18 08:39 Dose: 1 tab Omeprazole (Prilosec Cap*) 20 mg PO DAILY@0730 [facility] Last Admin: 07/08/18 08:36 Dose: 20 mg Ondansetron HCl (Zofran Inj*) 4 mg IV Q6H PRN PRN Reason: NAUSEA Pancrelipase (Zenpep Delayed Cap*) 5,000 units PO AC [facility] Last Admin: 07/08/18 17:13 Dose: 5,000 units Rifaximin (Xifaxan*) 550 mg PO BID [facility] Last Admin: 07/08/18 22:04 Dose: Not Given Thiamine HCl (Vitamin B-1 Tab*) 100 mg PO DAILY [facility] Last Admin: 07/08/18 08:37 Dose: 100 mg Physical Exam: General: awakens, lethargic mostly, not alert, no distress Head: normocephalic, atraumatic HEENT: no pallor, ++ icterus, dry mucous membranes Neck: soft, supple, no jvd, no stridor CVS: normal rate, regular, no murmur Resp: bilateral air entry, no rhales, no wheeze, no rhonchi, no acc muscle use Abdomen: soft, minimal tendernes, +distended, bowel sounds present Ext: pulses+, warm, no edema Skin: intact Neuro: awakens, lethargic at times, unclear orientation, moving all extremities , no gross focal deficit Labs: Laboratory Results - last 24 hr 07/08/18 07/08/18 07/08/18 11:38 15:51 17:09 WBC RBC Hgb Hct MCV MCH MCHC RDW Plt Count MPV INR (Anticoag Therapy) Sodium Potassium Chloride Carbon Dioxide Anion Gap BUN Creatinine Est GFR ( Amer) Est GFR (Non-Af Amer) BUN/Creatinine Ratio Glucose POC Glucose (mg/dL) 79 70 Calcium Total Bilirubin Direct Bilirubin Indirect Bilirubin AST ALT Alkaline Phosphatase Ammonia Lactate Dehydrogenase Total Protein Albumin Globulin Albumin/Globulin Ratio Fluid Source Fluid Volume Fluid Color Fluid Appearance Fluid WBC Fluid RBC Fluid Tot Cell Count Fluid Neutrophils Fluid Lymphocytes Fluid Monocytes Blood Type A Positive Antibody Screen Negative 07/08/18 07/09/18 07/09/18 20:37 04:51 04:51 WBC RBC Hgb Hct MCV MCH MCHC RDW Plt Count MPV INR (Anticoag Therapy) Sodium 121 L Potassium 4.8 Chloride 95 L Carbon Dioxide 20 L Anion Gap 6 BUN 23 Creatinine 2.14 H Est GFR ( Amer) 39.3 Est GFR (Non-Af Amer) 32.5 BUN/Creatinine Ratio 10.7 Glucose 45 L* POC Glucose (mg/dL) Calcium 6.7 L Total Bilirubin 20.00 H* Direct Bilirubin 14.60 H Indirect Bilirubin 5.4 H AST 153 H ALT 42 Alkaline Phosphatase 212 H Ammonia 109 H Lactate Dehydrogenase 274 H Total Protein 4.4 L Albumin 2.2 L Globulin 2.2 Albumin/Globulin Ratio 1.0 Fluid Source Peritonial fluid Fluid Volume 7 Fluid Color Yellow Fluid Appearance Clear Fluid WBC 1134 Fluid RBC 110 Fluid Tot Cell Count 100 Fluid Neutrophils 84 Fluid Lymphocytes 9 Fluid Monocytes 7 Blood Type Antibody Screen 07/09/18 07/09/18 07/09/18 04:51 04:51 08:35 WBC 7.7 RBC 2.34 L Hgb 8.6 L Hct 24 L MCV 104 H MCH 37 H MCHC 35 RDW 17 H Plt Count 44 L MPV 8.8 INR (Anticoag Therapy) 2.24 H Sodium Potassium Chloride Carbon Dioxide Anion Gap BUN Creatinine Est GFR ( Amer) Est GFR (Non-Af Amer) BUN/Creatinine Ratio Glucose POC Glucose (mg/dL) 101 H Calcium Total Bilirubin Direct Bilirubin Indirect Bilirubin AST ALT Alkaline Phosphatase Ammonia Lactate Dehydrogenase Total Protein Albumin Globulin Albumin/Globulin Ratio Fluid Source Fluid Volume Fluid Color Fluid Appearance Fluid WBC Fluid RBC Fluid Tot Cell Count Fluid Neutrophils Fluid Lymphocytes Fluid Monocytes Blood Type Antibody Screen Imaging: - Assessment: 52y M pmhx of Alcoholic Liver cirrhosis, recurrent pancreatitis in past, active drinker, substance abuse with cocaine, active tobacco use; comes in for increasing weakness/fatigue for months. Found to have severe hyponatremia , elevated ammonia, suspected decompensated liver cirrhosis. -Acute on chronic decompensated liver cirrhosis -Hepatic encephalopathy -ASHLEY -Hyponatremia -hyperbilirubinemia -coagulopathy -Shock -anemia -thrombocytopenia Plan: Neuro- awakens, doesnt respond back at times. fluctuating mental status. Ammonia elevated again. lactulose as tolerated when able to take po. no sedation. cont lactulose/rifaxamin for hepatic encephalopathy. no signs of agitation or alcohol withdrawal. asp prec. cont thiamine/folic acid. CVS- on levophed 27, add vasopressin. started ceftriaxone for SBP coverage. afebrile, wbc normal. cont midodrine 10mg tid. cont NS 75cc/hr. poor urine output now. Resp- on NC/RA, no distress. wean down as tolerated. monitor airway for possible decline. ID- afebrile. wbc normal. Periteoneal fluid with elevated counts, send out of glucose/ldh/protein. Periteoneal fluid gram stain negative. Started ceftriaxone 2gm daily (day#2). GI- decompensated cirrhosis, cont lactulose/rifaxamin. Ammonia elevated. IVF NS. making loose bowel movements. s/p abd para, 3300 off; gram stain neg, wbc elevated, start ceftriaxone IV. Unclear if sepsis, holding steroids for acute alc hepatitis due to possible sepsis. TBili 20. Renal- Cr 2+, ASHLEY in setting of decompensated CHF; poor urine output, Na rising , IVF continued. on pressors to maintain perfusion. Mild acidosis, K okay. Heme- hg drop noted to 8.4, thrombocytopenic 40-50s; coagulopathic. Coagulopathy from liver disease, INR 2.2. SCDs -may need PRBC/ffp/plt later today if further drop noted. Endo- fingerstick as needed. Musculsk- pressure ulcer prophylaxis. Bedrest. Wounds- none Nutrition- mechanical soft DVT prophylaxis: scds; no chemical due to coagulopathy GI prophylaxis: ppi Central Line: no Arterial Line: no Lee Cathetor: no Disposition: icu Code Status: full code progressive liver disease, developing ASHLEY, shock, unclear sepsis?, now with coagulopathy, drop in h/h, no improvement in mental status. discussed with family that prognosis is poor in the short term and escalation would not change outcome for patient. I see only further decline. need palliative care Total Critical Care time is 35 minutes, excluding procedures/teaching Elmer Perdomo MD Custodial Services Manager (Electronically Signed)
[2018-07-09] MEDS ORDERED: NS 0.9% 100 ML* 100 ML ONE (11:34)
[2018-07-09] MEDS: Thiamine IV* 100 MG in NS 0.9% 100 ML* 100 ML IV SCH (14:05)
[2018-07-09 15:45] LABS: Hematocrit 25 % (42-52); Hemoglobin 8.7 g/dl (14.0-18.0); Mean Corpuscular HGB Conc 35 g/dl (31-36); Mean Corpuscular Hemoglobin 37 pg (27-31); Mean Corpuscular Volume 104 fL (80-94); Mean Platelet Volume 8.1 um3 (7.4-10.4); Platelet Count 42 10^3/ul (150-450); Red Blood Count 2.39 10^6/ul (4.00-5.40); Red Cell Distribution Width 17 % (10.5-15); White Blood Count 8.6 10^3/ul (3.5-10.8)
[2018-07-09 15:58] LABS: EGFR Non-African American 29.4 (>60)
[2018-07-09] MEDS: cefTRIAXone(*) 2 GM in NS 0.9% 100 ML* 100 ML IVPB SCH (21:25)
[2018-07-10] MEDS: Norepinephrine VIAL* 8 MG in NS 0.9% 500 ML* 492 ML IV SCH ×5 (02:01→21:45)
[2018-07-10] MEDS: HYDROmorphone INJ1* 1 MG/ML SYRINGE IV SLOW PU PRN ×4 (03:26→17:42)
[2018-07-10] MEDS: NS 0.9% 1000 ML* 1,000 ML IV SCH (04:01)
[2018-07-10 06:47] LABS: Hematocrit 24 % (42-52); Hemoglobin 8.6 g/dl (14.0-18.0); Mean Corpuscular HGB Conc 36 g/dl (31-36); Mean Corpuscular Hemoglobin 37 pg (27-31); Mean Corpuscular Volume 104 fL (80-94); Mean Platelet Volume 7.9 um3 (7.4-10.4); Platelet Count 36 10^3/ul (150-450); Red Blood Count 2.31 10^6/ul (4.00-5.40); Red Cell Distribution Width 17 % (10.5-15); White Blood Count 10.8 10^3/ul (3.5-10.8)
[2018-07-10 06:54] LABS: INR 2.28 (0.77-1.02)
[2018-07-10 07:03] LABS: EGFR Non-African American 31.5 (>60)
[2018-07-10] MEDS: Dextrose 50% Syringe 50 ML* 25 GM/50 ML SYRINGE IV PUSH PRN (07:27)
[2018-07-10] MEDS ORDERED: D5NS 0.9% 1000 ML BAG* 1,000 ML IV SCH (10:00)
[2018-07-10] MEDS: Folic Acid TAB* 1 MG PO SCH (10:03)
[2018-07-10] MEDS: Pancrelipase CAP* 5,000 UNITS CAP PO SCH ×3 (10:03→17:57)
[2018-07-10] MEDS: Omeprazole CAP* 20 MG PO SCH (10:03)
[2018-07-10] MEDS: CMC:Midodrine (NF) 5 MG TAB PO SCH ×3 (10:04→21:46)
[2018-07-10] MEDS: RiFAXimin* 550 MG TAB PO SCH ×2 (10:04→21:46)
[2018-07-10] MEDS: Multivitamins/Minerals TAB PO SCH (10:04)
[2018-07-10] MEDS: Thiamine IV* 100 MG in NS 0.9% 100 ML* 100 ML IV SCH (10:07)
[2018-07-10] MEDS ORDERED: NS 0.9% 500 ML* 500 ML IV ONE (10:35)
--- NOTE | 2018-07-10 10:38 | PN ---
Progress Note - Progress Note Date of Service: 07/10/18 Note: Progress Note -- Critical Care 24 hour events/significant events: -lethargic but awakens, restless -on levo and vaso -afebrile -hypoglycemic, s/p d50 -poor po intake Tele: nsr, snius tachy Vitals: Vital Signs Temp 97.6 F 07/10/18 09:25 Pulse 101 07/10/18 07:15 Resp 21 07/10/18 08:33 BP 92/59 07/10/18 07:15 Pulse Ox 92 07/10/18 07:15 Intake & Output 07/09/18 07/10/18 07/10/18 18:59 06:59 18:59 Intake Total 1720 2978.4 Output Total 265 318 75 Balance 1455 2660.4 -75 Weight 87.8 kg Intake: IV Fluids 678 1375 NS (0.9%) 1375 Thiamine 678 IVPB 112 262 NS (0.9%) 262 Thiamine 112 Medicated IV 910 1341.4 CC - Norepinephrine/ 874 1257 Levophed CC - Vasopressin/ 36 84.4 Pitressin Oral 20 Output: Lee 265 318 75 O2/Vent: NC Infusions: levophed 26, vaso 0.04, NS 100 Medications: Dextrose (D50w Syringe 50 Ml*) 25 gm IV PUSH .FOR FS < 60 - SS PRN PRN Reason: FS < 60 Last Admin: 07/10/18 07:27 Dose: 25 gm Folic Acid (Folvite Tab*) 1 mg PO DAILY [facility] Last Admin: 07/10/18 10:03 Dose: Not Given Hydromorphone HCl (Dilaudid Inj1s*) 1 mg IV SLOW PU Q4H PRN PRN Reason: PAIN Last Admin: 07/10/18 08:33 Dose: 1 mg Thiamine HCl 100 mg/ Sodium (Chloride) 101 mls @ 202 mls/hr IV DAILY [facility] Last Admin: 07/10/18 10:07 Dose: 202 mls/hr Ceftriaxone Sodium 2 gm/ (Sodium Chloride) 100 mls @ 200 mls/hr IVPB Q24H [facility] Last Admin: 07/09/18 21:25 Dose: 200 mls/hr Norepinephrine Bitartrate 8 mg (/ Sodium Chloride) 500 mls @ 101.25 mls/hr IV Q5H [facility]; Protocol Last Admin: 07/10/18 08:23 Dose: 97.5 mls/hr Vasopressin 100 units/ (Dextrose) 250 mls @ 6 mls/hr IVPB .(Initial Rate) [facility] Last Admin: 07/09/18 10:32 Dose: 6 mls/hr Dextrose/Sodium Chloride (D5ns 0.9% 1000 Ml Bag*) 1,000 mls @ 100 mls/hr IV PER RATE [facility] Sodium Chloride (Ns 0.9% 500 Ml*) 500 mls @ 1,000 mls/hr IV ONCE ONE Stop: 07/10/18 11:04 Lactulose (Lactulose*) 15 ml PO QID [facility] Last Admin: 07/09/18 21:22 Dose: Not Given Midodrine (Midodrine (Nf)) 10 mg PO TID [facility]; Protocol Last Admin: 07/10/18 10:04 Dose: Not Given Multivitamins/Minerals (Theragran/Minerals Tab*) 1 tab PO DAILY [facility] Last Admin: 07/10/18 10:04 Dose: Not Given Omeprazole (Prilosec Cap*) 20 mg PO DAILY@0730 [facility] Last Admin: 07/10/18 10:03 Dose: Not Given Ondansetron HCl (Zofran Inj*) 4 mg IV Q6H PRN PRN Reason: NAUSEA Pancrelipase (Zenpep Delayed Cap*) 5,000 units PO AC [facility] Last Admin: 07/10/18 10:03 Dose: Not Given Rifaximin (Xifaxan*) 550 mg PO BID [facility] Last Admin: 07/10/18 10:04 Dose: Not Given Physical Exam: General: awakens, intermittently lethargic, will not answer questions back, restless, no distress Head: normocephalic, atraumatic HEENT: no pallor, ++ icterus, dry mucous membranes Neck: soft, supple, no jvd, no stridor CVS: normal rate, regular, no murmur Resp: bilateral air entry, no rhales, no wheeze, no rhonchi, no acc muscle use Abdomen: soft, minimal tendernes, +distended, bowel sounds present Ext: pulses+, warm, no edema Skin: intact Neuro: awakens, not very alert, can be lethargic at times, unclear orientation, moving all extremities, no gross focal deficit Labs: Laboratory Results - last 24 hr 07/08/18 07/09/18 07/09/18 20:37 15:20 15:20 WBC 8.6 RBC 2.39 L Hgb 8.7 L Hct 25 L MCV 104 H MCH 37 H MCHC 35 RDW 17 H Plt Count 42 L MPV 8.1 INR (Anticoag Therapy) Sodium 122 L Potassium 5.0 Chloride 97 L Carbon Dioxide 19 L Anion Gap 6 BUN 25 H Creatinine 2.33 H Est GFR ( Amer) 35.6 Est GFR (Non-Af Amer) 29.4 BUN/Creatinine Ratio 10.7 Glucose 60 L Calcium 6.6 L Fluid Cell Count Rvw By 07/10/18 07/10/18 07/10/18 06:35 06:35 06:35 WBC 10.8 RBC 2.31 L Hgb 8.6 L Hct 24 L MCV 104 H MCH 37 H MCHC 36 RDW 17 H Plt Count 36 L MPV 7.9 INR (Anticoag Therapy) 2.28 H Sodium 125 L Potassium 5.0 Chloride 101 Carbon Dioxide 19 L Anion Gap 5 BUN 31 H Creatinine 2.20 H Est GFR ( Amer) 38.1 Est GFR (Non-Af Amer) 31.5 BUN/Creatinine Ratio 14.1 Glucose 40 L* Calcium 6.7 L Fluid Cell Count Rvw By Imaging: - Assessment: 52y M pmhx of Alcoholic Liver cirrhosis, recurrent pancreatitis in past, active drinker, substance abuse with cocaine, active tobacco use; comes in for increasing weakness/fatigue for months. Found to have severe hyponatremia , elevated ammonia, suspected decompensated liver cirrhosis. -Acute on chronic decompensated liver cirrhosis -Hepatic encephalopathy -ASHLEY -Hyponatremia -hyperbilirubinemia -coagulopathy -Shock -anemia -thrombocytopenia Plan: Neuro- awakens easily. fluctuating mental status. no sedation. cont lactulose/ rifaxamin for hepatic encephalopathy. asp prec. cont thiamine/folic acid. CVS- on levophed and vaso, unchanged. cont ceftriaxone for SBP coverage. afebrile, wbc normal. cont midodrine 10mg tid if able. change to d5ns 100cc/hr; bolus 500cc NS now. some better urine output noted now Resp- on NC, no distress. wean down as tolerated. monitor airway for possible decline. ID- afebrile. wbc 10. Periteoneal fluid with elevated counts; Periteoneal fluid gram stain negative. Ceftriaxone 2gm daily (day#3). GI- poor po intake. decompensated cirrhosis, cont lactulose/rifaxamin, trial enema if unable to take PO. Ammonia elevated. change to D5NS for hypoglycemia. making loose bowel movements. s/p abd para, 3300 off; gram stain neg, wbc improved, ceftriaxone IV. Unclear if sepsis, holding steroids for acute alc hepatitis due to possible sepsis. TBili 20. Renal- Cr 2+ and decreased slightly today, ASHLEY in setting of decompensated CHF; poor urine output; rebolus 500cc NS, cont d5ns 100cc/hr. on pressors to maintain perfusion. Mild acidosis, K 5.0 Heme- hg 8-9, thrombocytopenic 40-50s; coagulopathic. Coagulopathy from liver disease, INR 2.3. SCDs Endo- fingerstick as needed. Musculsk- pressure ulcer prophylaxis. Bedrest. Wounds- none Nutrition- NPO DVT prophylaxis: scds; no chemical due to coagulopathy GI prophylaxis: ppi Central Line: no Arterial Line: no Lee Cathetor: yes Disposition: icu Code Status: full code progressive liver disease, developing ASHLEY, shock, unclear sepsis?, now with coagulopathy, drop in h/h, no improvement in mental status. discussed with family that prognosis is poor in the short term and escalation would not change outcome for patient. I see only further decline. Total Critical Care time is 35 minutes, excluding procedures/teaching Elmer Perdomo MD Supervisor Pigment Making (Electronically Signed)
[2018-07-10] MEDS: Lactulose* 15 ML UDC PO SCH ×4 (11:31→21:46)
[2018-07-10] MEDS ORDERED: Nystatin CREAM* 15 GM TUBE TOPICAL SCH (21:00)
[2018-07-10] MEDS ORDERED: Vasopressin* 100 UNITS in NS 0.9% 250 ML* 245 ML IVPB SCH (21:14)
[2018-07-10] MEDS: cefTRIAXone(*) 2 GM in NS 0.9% 100 ML* 100 ML IVPB SCH (21:49)
[2018-07-11] MEDS: Norepinephrine VIAL* 8 MG in NS 0.9% 500 ML* 492 ML IV SCH ×2 (00:24→05:17)
[2018-07-11] MEDS: HYDROmorphone INJ1* 1 MG/ML SYRINGE IV SLOW PU PRN (01:09)
[2018-07-11 06:08] VITALS: BP 90/58
[2018-07-11 06:22] LABS: Hematocrit 26 % (42-52); Hemoglobin 8.5 g/dl (14.0-18.0); Mean Corpuscular HGB Conc 33 g/dl (31-36); Mean Corpuscular Hemoglobin 36 pg (27-31); Mean Corpuscular Volume 110 fL (80-94); Mean Platelet Volume 8.1 um3 (7.4-10.4); Platelet Count 37 10^3/ul (150-450); Red Blood Count 2.35 10^6/ul (4.00-5.40); Red Cell Distribution Width 18 % (10.5-15); White Blood Count 21.2 10^3/ul (3.5-10.8)
[2018-07-11 06:25] LABS: INR 2.27 (0.77-1.02)
[2018-07-11 06:35] LABS: EGFR Non-African American 27.7 (>60)
--- NOTE | 2018-07-11 07:10 | PN ---
Progress Note - Progress Note Date of Service: 07/11/18 Note: Arrived to pronounce pt's .Pt was found unresponsive to all stimuli. Pupils fixed and dilated. No spontaneous respirations or heart beat on exam. Time of 6:34AM on 07/11/2018
--- NOTE | 2018-07-11 18:37 | DS ---
Discharge Summary Patient Name: Derrek Tyson Date of Admission: 07/04/2018 Date of Discharge: 07/11/2018 Attending: Dr Elmer Perdomo (hearing impaired teacher) Consultants: Dr Dawn (Gastroeneterology) Admitting Diagnoses: 1) Severe hyponatremia 2) acute on chronic decompensated cirrhosis/liver failure Discharge Diagnoses: 1) Severe hyponatremia 2) acute on chronic decompensated cirrhosis/liver failure 3) Hepatic encephalopathy 4) Shock, unspecified type 5) Possible Spontaneous bacterial peritonitis 6) Acute Kidney Injury 7) Coagulopathy 2/2 to Liver disease HPI/Hospital Course: 52y M w/pmhx of chronic pancreatitis, chronic alcohol abuse , substance abuse, Alcoholic Cirrhosis, recent admission for acute hepatitis secondary to alcohol to [facility] [place]; patient was admitted 07/04 for lethargy and weakness , found to have severe hyponatremia of 103. He was admitted for acute decompensated chronic liver disease. He was admitted and initially placed on fluid restriction, started on midodrine and aldactone. After being admitted he developed signs of hepatic encephalopathy, elevated ammonia levels and was started on lactulose/rifaxamin therapy. At some point he was hypotensive, without clear fevers/elevated WBC counts, started on IV pressors. Given his chronic alcohol abuse we started him on IVF infusion/bolus and over the next 24- 48 hours Na would start rising. Cultures were negative from blood, chest xray did not demonstrate any focus of infection, and abdominal exam was demonstrating diffuse mild tenderness while being distended along with generalized pains. His urine output was poor and he would develop progressive oliguric/anuric ASHLEY. An abdominal paracentesis was performed which showed elevated WBC, low total protein (ratio 0.5/4.5), low glucose, gramstain/culture negative. We started him on ceftriaxone therapy empirically. He showed no improvement in mental status which fluctuated from being lucid intermittently and then confused. A balance between management of diffuse pain while managing his shock state (with levophed and vasopressin) was difficult to achieve. He was coagulopathic all the while, given Vit K without much benefit. Patient initially on admission stated he wanted everything done, so he was full code. While his mental status and overall status declined, family was contact (his daughters ,one is Phylicia, and sister, Margaret). We discussed options and they initially wished to wait and treat. He showed no improvement and only further decline. After discussions, they decided that based on his overall declining condition, multiorgan dysfunction, and underlying cirrhosis, along with his chronic pain that DNR would be appropriate. A DNR was obtained 07/10 by Surrogate (daughter, Phylicia, with the assistance of pts sister Margaret). They would consider comfort care in the coming days. Patient unfortunately declined and was apneic, unresponsive, asystolic at 0634am on 07/11/2018. He was pronounced at that time, family was notified. Condition upon discharge: ; Time of 0634 AM on 07/11/2018 Code Status: DNR last code status Total Discharge time <30minutes Elmer Perdomo MD Spa Manager/Esthetician (Electronically Signed)
== END 2018-07-11 06:35 | disposition expired | DRG 432 ==
LOC: ED 08:28 → ICU 11:22
PROVIDERS: ADMIT Internal Medicine Critical Care Medicine; ATTEND Internal Medicine Critical Care Medicine
PROC: 05HM33Z Insertion of Infusion Device into Right Internal Jugular Vein, Percutaneous Approach (ICD-10-PCS; 2018-07-06)
PROC: B543ZZA Ultrasonography of Right Jugular Veins, Guidance (ICD-10-PCS; 2018-07-06)
PROC: 3E033XZ Introduction of Vasopressor into Peripheral Vein, Percutaneous Approach (ICD-10-PCS; 2018-07-06)
PROC: 0W9G3ZZ Drainage of Peritoneal Cavity, Percutaneous Approach (ICD-10-PCS; principal; 2018-07-08)
PROC: 30233L1 Transfusion of Nonautologous Fresh Plasma into Peripheral Vein, Percutaneous Approach (ICD-10-PCS; 2018-07-08)
DX: K70.31 Alcoholic cirrhosis of liver with ascites (principal); K65.2 Spontaneous bacterial peritonitis; E87.1 Hypo-osmolality and hyponatremia; R57.9 Shock, unspecified; N17.9 Acute kidney failure, unspecified; D68.4 Acquired coagulation factor deficiency; K86.1 Other chronic pancreatitis; E87.2 Acidosis; K70.40 Alcoholic hepatic failure without coma; F10.10 Alcohol abuse, uncomplicated; G89.29 Other chronic pain; Z66 Do not resuscitate; I46.9 Cardiac arrest, cause unspecified; F17.210 Nicotine dependence, cigarettes, uncomplicated; D69.6 Thrombocytopenia, unspecified; F41.9 Anxiety disorder, unspecified; F32.9 Major depressive disorder, single episode, unspecified; F14.10 Cocaine abuse, uncomplicated; E16.2 Hypoglycemia, unspecified; D64.9 Anemia, unspecified; Z90.49 Acquired absence of other specified parts of digestive tract; Z80.9 Family history of malignant neoplasm, unspecified; Z82.3 Family history of stroke
CPT/HCPCS: 36415; 71045; 74177; 80048; 80053; 80076; 81003; 81015; 82042; 82140; 82150; 82945; 83605; 83615; 83690; 83880; 83986; 84157; 84484; 85025; 85027; 85610; 85730; 86140; 86850; 86900; 86901; 86927; 87040; 87070; 87086; 87205; 87641; 89051; 99284; A9270-GY; J0696; J1170; J1885; J1940; J2060; J3010; J3411; J3430; P9017; P9045; Q9967